=== PATIENT | female | born 1975 | race African-American/Black ===

== ENCOUNTER 2017-02-16 17:09 | Inpatient (IN) | payer OTHER ==
[2017-02-16 18:06] VITALS: BMI 25.8
[2017-02-16] MEDS ORDERED: MAG HYDROX/AL HYDROX/SIMETH 30 ML UNIT-DOSE CUP PO ONE (19:23)
[2017-02-16] MEDS ORDERED: FAMOTIDINE 20 MG/50 ML IVPB 50 ML IVPB ONE ×2 (19:23→21:18)
[2017-02-16] MEDS ORDERED: ACETAMINOPHEN 1000 MG/100 ML VIAL (NON FORMULARY) IVPB ONE (19:23)
[2017-02-16] MEDS ORDERED: FOLIC ACID INJECTION - 1 MG, THIAMINE HCL 100 MG, MULTIVIT INJECTION ADULT 10 ML in SOD... IVPB ONE (19:23)
[2017-02-16] MEDS ORDERED: ONDANSETRON 4 MG/2 ML VIAL IVPB ONE (19:23)
[2017-02-16 19:37] LABS: BASOPHIL 0.9 % (0-2.0); MCH 35.1 pg (25.7-33.7); MCHC 33.9 g/dl (32.0-36.0); MEAN CELL VOLUME 103.7 fl (80-96); MEAN PLT VOLUME 10.7 fl (7.5-11.1); NEUTROPHILS 82.5 % (42.8-82.8); PLATELET COUNT 170 K/MM3 (134-434); RDW 16.3 % (11.6-15.6); WHITE BLOOD COUNT 6.1 K/mm3 (4.0-10.0)
--- NOTE | 2017-02-16 19:40 | PDOC ---
History of Present Illness - General History Source: Patient Exam Limitations: No Limitations <Negrito Awad - Last Filed: 02/16/17 23:00> - General History Source: Patient, Old Records Exam Limitations: No Limitations - History of Present Illness Initial Comments: 02/16/17 21:46 The patient is a 41 year old female, with a significant past medical history of alcohol abuse, who presents to the emergency department with nausea, vomiting and epigastric pain since she woke up this morning. She describes the epigastric pain as burning and states that it intermittently radiates upwards to her throat. She reports multiple episodes of vomiting, most recently currently in the ED. The patient reports that she typically drinks henny. The patient reports that she drank a significant amount of henny last night. The patient denies fever, chills or diarrhea. Allergies: None reported. Past Surgical History: None reported. Social History: Current everyday smoker; See HPI. PCP: Dr. Patel <Loretta Sctot - Last Filed: 02/17/17 00:15> - General Chief Complaint: Nausea/Vomiting Stated Complaint: VOMITING/INTOX Time Seen by Provider: 02/16/17 19:01 Past History - Past Medical History Anemia: No Asthma: No Cancer: No Cardiac Disorders: No CVA: No COPD: No CHF: No Dementia: No Diabetes: No GI Disorders: No Disorders: No HTN: No Hypercholesterolemia: No Kidney Stones: No Liver Disease: No Suicide Attempt (Hx): No Seizures: No Thyroid Disease: No - Surgical History Abdominal Surgery: No Appendectomy: No Cardiac Surgery: No Cholecystectomy: No Lung Surgery: No Neurologic Surgery: No Orthopedic Surgery: No - Reproductive History PID: No - Immunization History Immunization Up to Date: Yes - Psycho/Social/Smoking Cessation Hx Anxiety: No Suicidal Ideation: No Smoking Status: Yes Smoking History: Current every day smoker Have you smoked in the past 12 months: Yes Number of Cigarettes Smoked Daily: 10 Information on smoking cessation initiated: No 'Breaking Loose' booklet given: 05/01/16 Hx Alcohol Use: Yes Drug/Substance Use Hx: No Substance Use Type: Alcohol Hx Substance Use Treatment: Yes (DETOX,IOP) <Negrito Awad - Last Filed: 02/16/17 23:00> <Loretta Scott - Last Filed: 02/17/17 00:15> - Past Medical History Allergies/Adverse Reactions: Allergies Allergy/AdvReac Type Severity Reaction Status Date / Time No Known Allergies Allergy Verified 02/16/17 18:01 Home Medications: Ambulatory Orders NK [No Known Home Medication] 02/16/17 Review of Systems - Review of Systems Able to Perform ROS?: Yes Comments:: 02/16/17 20:13 GENERAL/CONSTITUTIONAL: No fever or chills. No weakness. HEAD, EYES, EARS, NOSE AND THROAT: No change in vision. No ear pain or discharge. No sore throat. CARDIOVASCULAR: No chest pain or shortness of breath. RESPIRATORY: No cough, wheezing, or hemoptysis. GASTROINTESTINAL: +Nausea, vomiting, epigastric pain. No diarrhea or constipation. GENITOURINARY: No dysuria, frequency, or change in urination. MUSCULOSKELETAL: No joint or muscle swelling or pain. No neck or back pain. SKIN: No rash. NEUROLOGIC: No headache, vertigo, loss of consciousness, or change in strength/ sensation. ENDOCRINE: No increased thirst. No abnormal weight change. HEMATOLOGIC/LYMPHATIC: No anemia, easy bleeding, or history of blood clots. ALLERGIC/IMMUNOLOGIC: No hives or skin allergy. <Loretta Scott - Last Filed: 02/17/17 00:15> *Physical Exam - Vital Signs Last Vital Signs Temp Pulse Resp BP Pulse Ox 98.1 F 107 H 24 146/64 100 02/16/17 18:01 02/16/17 18:01 02/16/17 18:01 02/16/17 18:01 02/16/17 18:01 <Negrito Awad - Last Filed: 02/16/17 23:00> - Vital Signs Last Vital Signs Temp Pulse Resp BP Pulse Ox 98.1 F 107 H 24 146/64 100 02/16/17 18:01 02/16/17 18:01 02/16/17 18:01 02/16/17 18:01 02/16/17 18:01 - Physical Exam Comments: 02/16/17 20:12 GENERAL: Awake, alert, and fully oriented, uncomfortable appearing. HEAD: No signs of trauma. EYES: PERRLA, EOMI, sclera anicteric, conjunctiva clear. ENT: Dry mucosa. Auricles normal inspection, hearing grossly normal, nares patent, oropharynx clear without exudates. NECK: Normal ROM, supple, no lymphadenopathy, JVD, or masses. LUNGS: Breath sounds equal, clear to auscultation bilaterally. No wheezes, and no crackles. HEART: Regular rate and rhythm, normal S1 and S2, no murmurs, rubs or gallops. ABDOMEN: Epigastric tenderness to palpation. Soft, normoactive bowel sounds. No guarding, no rebound. No masses. EXTREMITIES: Normal range of motion, no edema. No clubbing or cyanosis. No cords, erythema, or tenderness. NEUROLOGICAL: Cranial nerves II through XII intact. Normal speech, normal gait. SKIN: Warm, dry, normal turgor, no rashes or lesions noted. <Loretta Scott - Last Filed: 02/17/17 00:15> ED Treatment Course - LABORATORY CBC & Chemistry Diagram: 02/16/17 19:00 02/16/17 19:25 - RADIOLOGY Radiology Studies Ordered: Category Date Time Status CHEST X-RAY PORTABLE* [RAD] Stat Radiology 02/16/17 19:25 Ordered ABDOMEN US -LIMITED [US] Stat Ultrasound 02/16/17 19:25 Ordered <Negrito Awad - Last Filed: 02/16/17 23:00> - LABORATORY CBC & Chemistry Diagram: 02/16/17 19:00 02/16/17 19:25 - ADDITIONAL ORDERS Additional order review: 02/16/17 19:00 RBC 4.49 MCV 103.7 H MCHC 33.9 RDW 16.3 H D MPV 10.7 D Neutrophils % 82.5 Lymphocytes % 8.1 D Monocytes % 8.5 Eosinophils % 0.0 Basophils % 0.9 <Loretta Scott - Last Filed: 02/17/17 00:15> Medical Decision Making - Medical Decision Making 02/16/17 19:38 A portion of this note was documented by scribe services under my direction. I have reviewed the details of the note, within reason, and agree with the documentation with the following case summary and management plan written by me. Patient treated in the ED. Nursing notes are reviewed and incorporated into the medical decision-making. Vital signs reviewed. Peripheral IV access obtained by the nurse, laboratory studies are drawn and sent, reviewed and interpreted by myself. Vital Signs Temp Pulse Resp BP Pulse Ox 98.1 F 107 H 24 146/64 100 02/16/17 18:01 02/16/17 18:01 02/16/17 18:01 02/16/17 18:01 02/16/17 18:01 41-year-old female with past medical history of alcohol abuse presents immersed department with epigastric pain, nausea, vomiting. Patient reports that she intermittently drinks henny. She reported drinking a lot of henny yesterday night. Woke up today with severe epigastric pain, nausea, vomiting. Denies fevers or chills. I suspect patient likely has alcoholic gastritis. We'll however need to rule out pancreatitis. We'll obtain labs, right upper quadrant ultrasound to rule out biliary pathology. Give IV fluids, treat symptoms and reassess. 02/16/17 23:01 Ultrasound reveals fatty liver versus a parasite disease. Small gallbladder sludge without evidence of stones or sonographic evidence of acute cholecystitis. Chest xray reviewed. No acute findings. CBC, BMP 02/16/17 19:00 CMP Sodium 139 mmol/L (136-145) 02/16/17 19:25 Potassium 3.3 mmol/L (3.5-5.1) L 02/16/17 19:25 Chloride 91 mmol/L (98-107) L 02/16/17 19:25 Carbon Dioxide 23 mmol/L (21-32) 02/16/17 19:25 Anion Gap 25 (8-16) H 02/16/17 19:25 BUN 7 mg/dL (7-18) D 02/16/17 19:25 Creatinine 1.0 mg/dL (0.55-1.02) 02/16/17 19:25 Creat Clearance w eGFR > 60 (>60) 02/16/17 19:25 Random Glucose 71 mg/dL (74-106) L D 02/16/17 19:25 Calcium 9.4 mg/dL (8.5-10.1) 02/16/17 19:25 Total Bilirubin 1.4 mg/dL (0.2-1.0) H D 02/16/17 19:25 AST 74 U/L (15-37) H D 02/16/17 19:25 ALT 50 U/L (12-78) D 02/16/17 19:25 Alkaline Phosphatase 103 U/L (45-117) 02/16/17 19:25 Creatine Kinase 141 IU/L (26-192) 02/16/17 19:25 Troponin I < 0.02 ng/ml (0.00-0.05) 02/16/17 19:25 Total Protein 8.6 g/dl (6.4-8.2) H 02/16/17 19:25 Albumin 4.5 g/dl (3.4-5.0) 02/16/17 19:25 Lipase 75 U/L (73-393) 02/16/17 19:25 Serum , Qual Negative 02/16/17 19:25 UA pending. The patient demonstrates findings of dehydration with elevated hemoglobin and hemoconcentration. Also notable is patient's anion gap of 25. Acetone was test was negative. Lactic acidosis and a tox screen is pending. Though the patient reports feeling somewhat better, patient has having an inability to tolerate by mouth. She still remains nauseous. Given the elevated anion gap, decision was made to admit the patient to the hospital. Case was discussed with Dr. Motley who accepts the patient to medical surgical observation for further evaluation. Case discussed in detail with admitting physician including history, physical exam and ancillary studies. Admitting physician has assumed care for the patient, will follow all pending diagnostics and will complete the evaluation and treatment. <Negrito Awad - Last Filed: 02/16/17 23:00> - Medical Decision Making 02/16/17 21:37 EXAM: US/ABDOMEN US - LIMITED Reviewed By: Dr. Eva Dunn IMPRESSION: Fatty liver versus hepatocellular disease. Please correlate with liver enzymes. Small gallbladder sludge without evidence of stones or sonographic evidence of acute cholecystitis. EXAM: RAD/CHEST X-RAY PORTABLE Reviewed By: Dr. Eva Dunn IMPRESSION: No acute cardiopulmonary disease is present. Hospitalist service was made aware that this patient's lactic acid is 5.245 at 23:43. <Loretta Scott - Last Filed: 02/17/17 00:15> *DC/Admit/Observation/Transfer - Discharge Dispostion Admit: Yes <Negrito Awad - Last Filed: 02/16/17 23:00> - Attestations Scribe Attestion: 02/16/17 19:59 Documentation prepared by Loretta La Veta, acting as medical translator for Negrito Awad MD. <Loretta Scott - Last Filed: 02/17/17 00:15> Diagnosis at time of Disposition: Alcoholic gastritis Qualifiers: Chronicity: unspecified Gastritis bleeding: without bleeding Qualified Code(s) : K29.20 - Alcoholic gastritis without bleeding - Referrals Referrals: Yeimi Patel MD [Primary Care Provider] -
[2017-02-16 20:15] LABS: ALBUMIN 4.5 g/dl (3.4-5.0); ANION GAP 25 (8-16); BILIRUBIN,TOTAL 1.4 mg/dL (0.2-1.0); CALCIUM 9.4 mg/dL (8.5-10.1); CO2 23 mmol/L (21-32); GLUCOSE,RANDOM 71 mg/dL (74-106); SGOT/AST 74 U/L (15-37); SGPT/ALT 50 U/L (12-78); TOT PROT 8.6 g/dl (6.4-8.2)
[2017-02-16 20:17] LABS: ALK PHOS 103 U/L (45-117); TROPONIN I < 0.02 ng/ml (0.00-0.05)
[2017-02-16] MEDS ORDERED: SODIUM CHLORIDE 1,000 ML IV STA (21:11)
[2017-02-16] MEDS ORDERED: MAG HYDROX/AL HYDROX/SIMETH 30 ML UNIT-DOSE CUP ONE (21:16)
[2017-02-16] MEDS ORDERED: ONDANSETRON 4 MG/2 ML VIAL ONE (21:17)
[2017-02-16] MEDS ORDERED: POTASSIUM CHLORIDE TABS 20 MEQ TABLET.ER (FP) PO ONE ×2 (21:31→23:03)
[2017-02-16] MEDS ORDERED: morphine CARPU-JECT 4 MG/1 ML DISP.SYRIN IVPUSH ONE (21:48)
[2017-02-16] MEDS ORDERED: ACETAMINOPHEN INJECTION 100 ML IVPB ONE (21:54)
[2017-02-16] MEDS ORDERED: morphine CARPU-JECT 4 MG/1 ML DISP.SYRIN ONE (23:03)
--- NOTE | 2017-02-17 00:03 | PN ---
<Keshia Motley - Last Filed: 02/16/17 23:11> Teaching Attending Note Name of Resident: Morris Conner <Heydi Carlisle - Last Filed: 02/17/17 03:12> Teaching Attending Note ATTENDING PHYSICIAN STATEMENT I saw and evaluated the patient. I reviewed the resident's note and discussed the case with the resident. I agree with the resident's findings and plan as documented. SUBJECTIVE: 41 year old female presents to the ED with complaint of nausea, vomiting and epigastric pain since this morning. She describes the epigastric pain as burning and states that it intermittently radiates upwards to her throat. She reports multiple episodes, nonbloody, since , 02/15. She notes that she drank extensive amounts of henny for 24 hours since Sunday until . She also reports tremors. Patient has extensive history of alcohol abuse, drinking 1 pint of henny a day, was in [facility] detox in 2016. PMH: none PSH: none FH: Mother (HTN,ALCOHOLISM), CA: Grandparent (BRAIN), Father (ALCOHOLISM,LUNG) SH: alcohol abuse(drinks a pint of henny a day, detox 2016), smoker, no illicit drug use OBJECTIVE: VS: Last Vital Signs Temp Pulse Resp BP Pulse Ox 98.1 F 107 H 24 146/64 100 02/16/17 18:01 02/16/17 18:01 02/16/17 18:01 02/16/17 18:01 02/16/17 18:01 GENERAL: Awake, alert, and fully oriented, +in mild acute distress HEENT: Atraumatic. PERRLA, EOMI. Moist mucosa. No JVD LUNGS: No distress, speaks full sentences, clear to auscultation bilaterally HEART: Regular rate and rhythm, normal S1 and S2, no murmurs, rubs or gallops, peripheral pulses normal and equal bilaterally. ABDOMEN: +epigastric tenderness, +RUQ tenderness. Soft, normoactive bowel sounds. No guarding, no rebound. No masses Musculoskeletal: +left CVA tenderness EXTREMITIES: Normal inspection, Normal range of motion, no edema. No clubbing or cyanosis. NEUROLOGICAL: Cranial nerves II through XII grossly intact. Normal speech, normal gait, no focal sensorimotor deficits SKIN: Warm, Dry, normal turgor, no rashes or lesions noted. LABS: CBCD WBC 6.1 K/mm3 (4.0-10.0) 02/16/17 19:00 RBC 4.49 M/mm3 (3.60-5.2) 02/16/17 19:00 Hgb 15.8 GM/dL (10.7-15.3) H D 02/16/17 19:00 Hct 46.6 % (32.4-45.2) H 02/16/17 19:00 MCV 103.7 fl (80-96) H 02/16/17 19:00 MCHC 33.9 g/dl (32.0-36.0) 02/16/17 19:00 RDW 16.3 % (11.6-15.6) H D 02/16/17 19:00 Plt Count 170 K/MM3 (134-434) 02/16/17 19:00 MPV 10.7 fl (7.5-11.1) D 02/16/17 19:00 CMP Sodium 141 mmol/L (136-145) 02/16/17 23:38 Potassium 3.1 mmol/L (3.5-5.1) L 02/16/17 23:38 Chloride 95 mmol/L (98-107) L 02/16/17 23:38 Carbon Dioxide 30 mmol/L (21-32) D 02/16/17 23:38 Anion Gap 16 (8-16) 02/16/17 23:38 BUN 8 mg/dL (7-18) 02/16/17 23:38 Creatinine 1.0 mg/dL (0.55-1.02) 02/16/17 23:38 Creat Clearance w eGFR > 60 (>60) 02/16/17 23:38 Calcium 8.5 mg/dL (8.5-10.1) 02/16/17 23:38 Total Bilirubin 1.9 mg/dL (0.2-1.0) H D 02/16/17 23:38 AST 215 U/L (15-37) H D 02/16/17 23:38 ALT 79 U/L (12-78) H D 02/16/17 23:38 Alkaline Phosphatase 85 U/L (45-117) 02/16/17 23:38 Total Protein 6.9 g/dl (6.4-8.2) 02/16/17 23:38 Albumin 3.6 g/dl (3.4-5.0) 02/16/17 23:38 IMAGING: EXAM: US/ABDOMEN US - LIMITED Reviewed By: Dr. Eva Dunn IMPRESSION: Fatty liver versus hepatocellular disease. Please correlate with liver enzymes. Small gallbladder sludge without evidence of stones or sonographic evidence of acute cholecystitis. ASSESSMENT AND PLAN: 41 year old female who is being admitted for severe alcohol intoxication/ poisoning r/o gastritis. Severe alcohol intoxication/poisoning -Urine tox -UA -Librium -Zofran -Repeat BMP and Lactic in AM -Banana bag -Multi vitamin -Folic acid and thiamine -CXR -Abdominal and renal US -Psych consult -Consult for detox Documentation prepared by SOUTH Paredes, acting as biomedical equipment tech for Keshia Motley MD, MD.
[2017-02-17 00:16] LABS: ALBUMIN 3.6 g/dl (3.4-5.0); ALK PHOS 85 U/L (45-117); ANION GAP 16 (8-16); BILIRUBIN,TOTAL 1.9 mg/dL (0.2-1.0); CALCIUM 8.5 mg/dL (8.5-10.1); CO2 30 mmol/L (21-32); GLUCOSE,RANDOM 118 mg/dL (74-106); MAGNESIUM 1.1 mg/dL (1.8-2.4); SGOT/AST 215 U/L (15-37); SGPT/ALT 79 U/L (12-78); TOT PROT 6.9 g/dl (6.4-8.2)
--- NOTE | 2017-02-17 00:45 | HP ---
CHIEF COMPLAINT: vomiting PCP: Dr. Cline [facility] HISTORY OF PRESENT ILLNESS: 41 yr old woman with alcohol abuse, current smoker presents with vomiting since Sunday morning starting around 6AM. multiple episodes of vomit consisted of yellow/green water, denies blood, continued to vomit in the ED. She had started drinking henny with cola starting Sunday afternoon around 5pm and continued to drink all day without food or water until into night. Also c/o abdominal pain and sore throat that started after vomiting. Denied any other alcohol in combination, denied drug use. denies back and left sided trauma, LOC or head trauma. Was in her usual state of health on Sunday morning, no sick contacts, no travel. Has been binge drinking every several months to the point of requiring hospitalization for the past two years, since the of her mother. Cries when she remembers her mother. No ICU stays, no intubations, denies seizures. When she stops her binge episode she gets a headache, vomits continuously ( never blood), comes to the hospital for a few days then goes home. Had a full physical on Dec [address] Harper, was told she was vit D deficient. ER course was notable for: (1) banana bag (2) cxy (3) abdominal ultrasound Recent Travel: none PAST MEDICAL HISTORY: Vitamin D deficiency Social History: lives with younger sister (29 yr old), and teenage son, has two sons in senior care and 1 son who from accidental gun shot many years ago. 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 Smoking: current smoker, 1/2 pk per day since she was 19 Alcohol: last drink night, drinks henny - "alot" Drugs: denies Family History: Father from lung cancer, dxd age 60's Mother from renal failure, DM Paternal grandmother "brain cancer" Allergies No Known Allergies Allergy (Verified 02/16/17 18:01) HOME MEDICATIONS: Home Medications Medication Instructions Recorded NK [No Known Home Medication] 02/16/17 REVIEW OF SYSTEMS CONSTITUTIONAL: Present: chills, Absent: fever, diaphoresis, generalized weakness, malaise, loss of appetite, weight change HEENT: Absent: rhinorrhea, nasal congestion, throat pain, throat swelling, difficulty swallowing, mouth swelling, ear pain, eye pain, visual changes CARDIOVASCULAR: Absent: chest pain, syncope, palpitations, irregular heart rate, lightheadedness , peripheral edema RESPIRATORY: Absent: cough, shortness of breath, dyspnea with exertion, orthopnea, wheezing, stridor, hemoptysis GASTROINTESTINAL: Present: abdominal pain, vomiting, Absent:abdominal distension, nausea,diarrhea, constipation, melena, hematochezia GENITOURINARY: Absent: dysuria, frequency, urgency, hesitancy, hematuria, flank pain, genital pain MUSCULOSKELETAL: Absent: myalgia, arthralgia, joint swelling, back pain, neck pain SKIN: Absent: rash, itching, pallor HEMATOLOGIC/IMMUNOLOGIC: Absent: easy bleeding, easy bruising, lymphadenopathy, frequent infections ENDOCRINE: Absent: unexplained weight gain, unexplained weight loss, heat intolerance, cold intolerance NEUROLOGIC: Absent: headache, focal weakness or paresthesias, dizziness, unsteady gait, seizure, mental status changes, bladder or bowel incontinence PSYCHIATRIC: Absent: anxiety, depression, suicidal or homicidal ideation, hallucinations. PHYSICAL EXAMINATION Vital Signs - 24 hr 02/16/17 18:01 Temperature 98.1 F Pulse Rate 107 H Respiratory 24 Rate Blood Pressure 146/64 O2 Sat by Pulse 100 Oximetry (%) GENERAL: Awake, alert, and fully oriented, in no mild distress - vomiting in bed with occasional chills. HEAD: Normal with no signs of trauma. EYES: Pupils equal, round and reactive to light, extraocular movements intact, sclera anicteric, conjunctiva clear. No lid lag. EARS, NOSE, THROAT: Ears normal, nares patent, oropharynx clear without exudates. Moist mucous membranes. poor dentition, missing upper dentition. NECK: Normal range of motion, supple without lymphadenopathy, JVD, or masses. LUNGS: RLL mild crackles, LLL coarse breath sounds. No wheezes. No accessory muscle use. HEART: tachycardiac, regular rhythm, normal S1 and S2 without murmur, rub or gallop. ABDOMEN: Soft, tender in epigastrium and RUQ, not distended, normoactive bowel sounds, no guarding, no rebound, no masses. No hepatomegaly or splenomegaly. MUSCULOSKELETAL: Normal range of motion at all joints. No bony deformities or tenderness. Left CVA tenderness - overlying skin intact without swelling or bruising, pain is nonradiating, nonpositional. right cva nontender. UPPER EXTREMITIES: 2+ pulses, warm, well-perfused. No cyanosis. No clubbing. No peripheral edema. LOWER EXTREMITIES: 2+ pulses, warm, well-perfused. No calf tenderness. No peripheral edema. NEUROLOGICAL: Cranial nerves II-XII intact. Normal speech. PSYCHIATRIC: Cooperative. Good eye contact. Appropriate mood and affect. denies hallucinations SKIN: Warm, dry, normal turgor, no rashes or lesions noted, normal capillary refill. Laboratory Results - last 24 hr 02/16/17 02/16/17 02/16/17 19:00 19:20 19:25 WBC 6.1 RBC 4.49 Hgb 15.8 H D Hct 46.6 H MCV 103.7 H MCHC 33.9 RDW 16.3 H D Plt Count 170 MPV 10.7 D Neutrophils % 82.5 Lymphocytes % 8.1 D Monocytes % 8.5 Eosinophils % 0.0 Basophils % 0.9 Sodium Potassium Chloride Carbon Dioxide Anion Gap BUN Creatinine Creat Clearance w eGFR Random Glucose Lactic Acid Calcium Magnesium Total Bilirubin AST ALT Alkaline Phosphatase Creatine Kinase Troponin I Total Protein Albumin Lipase Serum , Qual Negative Acetone, Qual Negative L 02/16/17 02/16/17 02/16/17 19:25 22:24 22:24 WBC RBC Hgb Hct MCV MCHC RDW Plt Count MPV Neutrophils % Lymphocytes % Monocytes % Eosinophils % Basophils % Sodium 139 Cancelled Potassium 3.3 L Cancelled Chloride 91 L Cancelled Carbon Dioxide 23 Cancelled Anion Gap 25 H Cancelled BUN 7 D Cancelled Creatinine 1.0 Cancelled Creat Clearance w eGFR > 60 Cancelled Random Glucose 71 L D Cancelled Lactic Acid 5.245 H* Calcium 9.4 Cancelled Magnesium Total Bilirubin 1.4 H D Cancelled AST 74 H D Cancelled ALT 50 D Cancelled Alkaline Phosphatase 103 Cancelled Creatine Kinase 141 Troponin I < 0.02 Total Protein 8.6 H Cancelled Albumin 4.5 Cancelled Lipase 75 Serum , Qual Acetone, Qual 02/16/17 23:38 WBC RBC Hgb Hct MCV MCHC RDW Plt Count MPV Neutrophils % Lymphocytes % Monocytes % Eosinophils % Basophils % Sodium 141 Potassium 3.1 L Chloride 95 L Carbon Dioxide 30 D Anion Gap 16 BUN 8 Creatinine 1.0 Creat Clearance w eGFR > 60 Random Glucose 118 H D Lactic Acid Calcium 8.5 Magnesium 1.1 L Total Bilirubin 1.9 H D AST 215 H D ALT 79 H D Alkaline Phosphatase 85 Creatine Kinase Troponin I Total Protein 6.9 Albumin 3.6 Lipase Serum , Qual Acetone, Qual Active Medications Chlordiazepoxide HCl (Librium -) 25 mg PO Q4H PRN PRN Reason: WITHDRAWAL(CONT SUBST) Stop: 02/20/17 01:56 Chlordiazepoxide HCl (Librium -) 50 mg PO [id number] [facility] Stop: 02/17/17 23:01 Chlordiazepoxide HCl (Librium -) 25 mg PO [id number] [facility] Stop: 02/18/17 23:01 Chlordiazepoxide HCl (Librium -) 15 mg PO [id number] [facility] Stop: 02/19/17 23:01 Enoxaparin Sodium (Lovenox -) 40 mg SQ DAILY [facility] Folic Acid (Folic Acid -) 1 mg PO DAILY [facility] Sodium Chloride (Normal Saline -) 1,000 mls @ 125 mls/hr IV ASDIR [facility] Last Admin: 02/17/17 02:24 Dose: 125 mls/hr Potassium Chloride (Potassium Chloride 10 Meq Premix Ivpb -) 100 mls @ 100 mls/ hr IVPB Q60M [facility] Stop: 02/17/17 04:59 Metoclopramide HCl (Reglan Injection -) 10 mg IVPB Q6H PRN PRN Reason: NAUSEA AND/OR VOMITING Thiamine HCl (Vitamin B1 -) 100 mg PO DAILY [facility] ASSESSMENT/PLAN: 41 yr old woman with alcohol abuse presents with vomiting post-alcohol binge episode found to have lactic acidosis. - CXY with right tiny subpleral bulla R>L, will require outpatient follow-up - Tranaminitis with AST>ALT, likely from alcohol use #Alcohol gastritis - vomiting likely due to alcohol use - NPO except for meds, evaluate in the AM to advance diet - banana bag, thiamine, folic acid - NS IVF @125 - reglan #Lactic acidosis - pt is afebrile, no URI/UTI symptoms, cxy without infiltrate, consolidations, no leucocytosis. Lactic acidosis likely from alcohol use - bld cx and ua pending to r/o infection - NS - repeat in the AM #Left CVA tenderness - unclear etiology, possibly patient may have fallen? - ultrasound of left kidney to r/o renal cause of pain #ETOH withdrawal - librium taper - Dr. Tanner consulted - pt is interested in attending rehab #Hypokalemia/HypoMg - kdur x2 - Mg Hydroxide - repeat in the AM #Grief vs depression regarding mother's , alcohol abuse counseling - psych consult #Smoking cessation - declined nicotine patch - offer cessation information at discharge #Diet - NPO except for meds #DVT - lovenox Visit type - Emergency Visit Emergency Visit: Yes ED Registration Date: 02/16/17 Care time: The patient presented to the Emergency Department on the above date and was hospitalized for further evaluation of their emergent condition. - New Patient This patient is new to me today: Yes Date on this admission: 02/17/17 - Critical Care Critical Care patient: No
[2017-02-17] MEDS ORDERED: METOCLOPRAMIDE HCL INJECTION 10 MG/2 ML VIAL IVPB PRN (01:31)
[2017-02-17] MEDS ORDERED: SODIUM CHLORIDE 1,000 ML IV SCH (01:45)
[2017-02-17] MEDS ORDERED: chlordiazePOXIDE HCL 25 MG CAPSULE PO PRN (01:57)
[2017-02-17] MEDS: KCL 10 MEQ IVPB 100 ML IVPB SCH ×2 (03:20→04:29)
[2017-02-17 03:43] LABS: URINE APPEARANCE CLOUDY; URINE BILIRUBIN NEGATIVE (NEGATIVE); URINE BLOOD NEGATIVE (NEGATIVE); URINE COLOR AMBER; URINE GLUCOSE (UA) NEGATIVE (NEGATIVE); URINE KETONE 1+ (NEGATIVE); URINE LEUK ESTERASE NEGATIVE (NEGATIVE); URINE NITRITE NEGATIVE (NEGATIVE); URINE UROBILINOGEN NEGATIVE E.U./dl (0.2-1.0)
[2017-02-17 03:45] LABS: URINE PROTEIN 2+ (NEGATIVE)
[2017-02-17 03:55] LABS: URINE MARIJUANA THC NEGATIVE ng/ml (CUTOFF=50)
[2017-02-17 03:58] LABS: URINE BACTERIA FEW /hpf (NONE SEEN); URINE MUCUS MANY; URINE RBC 12 /hpf (0-3); URINE WBC 14 /hpf (3-5)
[2017-02-17] MEDS ORDERED: chlordiazePOXIDE HCL 25 MG CAPSULE ONE (05:42)
[2017-02-17] MEDS: chlordiazePOXIDE HCL 25 MG CAPSULE PO SCH ×2 (05:47→12:21)
[2017-02-17 07:18] LABS: MCH 35.4 pg (25.7-33.7); MCHC 33.6 g/dl (32.0-36.0); MEAN CELL VOLUME 105.3 fl (80-96); MEAN PLT VOLUME 9.5 fl (7.5-11.1); PLATELET COUNT 113 K/MM3 (134-434); RDW 15.8 % (11.6-15.6); WHITE BLOOD COUNT 7.5 K/mm3 (4.0-10.0)
[2017-02-17 07:40] LABS: CALCIUM 7.8 mg/dL (8.5-10.1); COCKROFT - GAULT 119.9435; CREATININE 0.7 mg/dL (0.55-1.02)
[2017-02-17 08:40] LABS: HYPOCHROMIA 2+; TARGET CELLS 2+
[2017-02-17] MEDS ORDERED: ENOXAPARIN NA (PORCINE) 40 MG/0.4 ML DISP.SYRIN SQ SCH (10:00)
[2017-02-17] MEDS ORDERED: THIAMINE HCL 100 MG TABLET (FP) PO SCH (10:00)
[2017-02-17] MEDS ORDERED: FOLIC ACID 1 MG TABLET (FP) PO SCH (10:00)
[2017-02-17] MEDS ORDERED: POTASSIUM CHLORIDE ORAL LIQUID 20 MEQ/15 ML PO ONE ×2 (11:45→12:30)
[2017-02-17 12:59] LABS: HIV 1 & 2 AB NEGATIVE; HIV 1 AGp24 NEGATIVE
[2017-02-17 16:51] LABS: ALBUMIN 3.4 g/dl (3.4-5.0); BILIRUBIN,DIRECT 0.4 mg/dL (0.0-0.2); TOT PROT 6.2 g/dl (6.4-8.2)
--- NOTE | 2017-02-17 17:28 | DS ---
Physical Exam: SUBJECTIVE: Patient seen and examined. initially examined at 1030 today. states she feels better and is requesting to eat. has a FLORES but contributes to not eating since yesterday. states she binges on drinking once a month and goes a day or 2 and only consumes ETOH. sometimes triggerd by emoitional event and this time was because her son was locked up in retirement. denies CP, SOB,fever, chills, N/V/C/D, homicidal/suicidal idealizations. no hx of DT or withdrawal seizures. never been detoxed from ETOH. never did inpatient rehab and is not interested in at this time OBJECTIVE: Vital Signs Period Temp Pulse Resp BP Sys/Kramer Pulse Ox Last 24 Hr 98.2 F-98.7 F 75-89 18-20 122-141/66-93 98-100 PHYSICAL EXAM GENERAL: The patient is awake, alert, and fully oriented, in no acute distress. HEAD: Normal with no signs of trauma. EYES: PERRL, extraocular movements intact, sclera anicteric, conjunctiva clear. ENT: Ears normal, nares patent, oropharynx clear without exudates, moist mucous membranes. NECK: Trachea midline, full range of motion, supple. LUNGS: Breath sounds equal, clear to auscultation bilaterally, no wheezes, no crackles, no accessory muscle use. HEART: Regular rate and rhythm, S1, S2 without murmur, rub or gallop. ABDOMEN: Soft, nontender, nondistended, normoactive bowel sounds, no guarding, no rebound, no hepatosplenomegaly, no masses. EXTREMITIES: 2+ pulses, warm, well-perfused, no edema. no tremors NEUROLOGICAL: Cranial nerves II through XII grossly intact. Normal speech, gait not observed. PSYCH: Normal mood, normal affect. SKIN: Warm, dry, normal turgor, no rashes or lesions noted. LABS Laboratory Results - last 24 hr 02/17/17 02/17/17 02/17/17 03:19 03:25 06:05 WBC 7.5 RBC 3.58 L D Hgb 12.7 D Hct 37.7 D MCV 105.3 H MCHC 33.6 RDW 15.8 H Plt Count 113 L D MPV 9.5 D Hypochromic-Microcytic 2+ Macrocytosis 1+ Target Cells 2+ Morphology Comment Slide scanned Sodium Potassium Chloride Carbon Dioxide Anion Gap BUN Creatinine Random Glucose Lactic Acid Calcium Total Bilirubin Direct Bilirubin AST ALT Alkaline Phosphatase Total Protein Albumin Urine Color Colleen Urine Appearance Cloudy Urine pH 6.0 Ur Specific [place] 1.026 Urine Protein 2+ H Urine Glucose (UA) Negative Urine Ketones 1+ H Urine Blood Negative Urine Nitrite Negative Urine Bilirubin Negative Urine Urobilinogen Negative Ur Leukocyte Esterase Negative Urine RBC 12 Urine WBC 14 Ur Epithelial Cells Few Urine Bacteria Few Urine Mucus Many Opiates Screen Positive Methadone Screen Negative Barbiturate Screen Negative Phencyclidine Screen Negative Ur Amphetamines Screen Negative MDMA (Ecstasy) Screen Negative Benzodiazepines Screen Negative Cocaine Screen Negative U Marijuana (THC) Screen Negative HIV 1&2 Antibody Screen HIV P24 Antigen 02/17/17 02/17/17 02/17/17 06:05 06:05 10:50 WBC RBC Hgb Hct MCV MCHC RDW Plt Count MPV Hypochromic-Microcytic Macrocytosis Target Cells Morphology Comment Sodium 141 Potassium 3.7 Chloride 99 Carbon Dioxide 30 Anion Gap 12 BUN 6 L D Creatinine 0.7 D Random Glucose 82 D Lactic Acid 1.294 Calcium 7.8 L Total Bilirubin 1.0 D Direct Bilirubin 0.4 H AST 135 H D ALT 63 D Alkaline Phosphatase 72 Total Protein 6.2 L Albumin 3.4 Urine Color Urine Appearance Urine pH Ur Specific [place] Urine Protein Urine Glucose (UA) Urine Ketones Urine Blood Urine Nitrite Urine Bilirubin Urine Urobilinogen Ur Leukocyte Esterase Urine RBC Urine WBC Ur Epithelial Cells Urine Bacteria Urine Mucus Opiates Screen Methadone Screen Barbiturate Screen Phencyclidine Screen Ur Amphetamines Screen MDMA (Ecstasy) Screen Benzodiazepines Screen Cocaine Screen U Marijuana (THC) Screen HIV 1&2 Antibody Screen Negative HIV P24 Antigen Negative HOSPITAL COURSE: Date of Admission:02/17/17 Date of Discharge: 02/17/17 Admitting diagnosis: ETOH induced gastritis, Transaminitis Pre hospital course 41 yr old woman with alcohol abuse, current smoker presents with vomiting since Sunday morning starting around 6AM. multiple episodes of vomit consisted of yellow/green water, denies blood, continued to vomit in the ED. She had started drinking henny with cola starting Sunday afternoon around 5pm and continued to drink all day without food or water until into night. Also c/o abdominal pain and sore throat that started after vomiting. Denied any other alcohol in combination, denied drug use. denies back and left sided trauma, LOC or head trauma. Was in her usual state of health on Sunday morning, no sick contacts, no travel. Has been binge drinking every several months to the point of requiring hospitalization for the past two years, since the of her mother. Cries when she remembers her mother. No ICU stays, no intubations, denies seizures. When she stops her binge episode she gets a headache, vomits continuously ( never blood), comes to the hospital for a few days then goes home. Had a full physical on Dec [address] Harper, was told she was vit D deficient. Subsequent hospital course Admitted to medicine. given banana bag and IVF, zofran for nausea. clinically improved. diet advanced and tolerated. was started on librium protocol but was cancelled as pt had CIWA 1. does not drink ETOH daily no hx of DT's. low suspicion that pt will develop DT at this time and does not require detox as does not display symptoms of withdrawal. transaminitis improved. spoke with psychatrist Zoie over the phone as he was consulted for depression. d/w pt situation and plan. he agrees pt does not appear to be a threat to herself or others, not displaying episodes of niru or manic depression and will follow up as outpatient. re-evaluated at 1730- tolerating lunch well, no N/V. FLORES has resolved. no tremors or agitation. pt d/c home. educated on importance of ETOH and tobacco cessation. will need repeat CXR to monitor incidental finding of pulmonary bullae. Minutes to complete discharge: 40 Discharge Summary Reason For Visit: ALCOHOLIC GASTRITIS Current Active Problems Alcoholic gastritis (Acute) Lactic acidosis (Acute) Transaminitis (Acute) - Instructions Diet, Activity, Other Instructions: Avoid drinking alcohol as this is detrimental to your health as discussed in detail. Seek Alcoholics Anonymous Take a multivitamin daily. Follow up with your primary care doctor this week. You will need a repeat Chest X-ray to follow up a lung bullae that was seen here. You will also need to have your liver functions tested again to ensure they have normalized. Abstain from smoking cigarettes as this is detrimental to your health. FOllow up with psychiatrist, information on one has been provided return to the ER if you develop chest pain Referrals: Tracey Melo MD [Staff Physician] - Yeimi Patel MD [Primary Care Provider] - - Home Medications Comprehensive Discharge Medication List: Ambulatory Orders NK [No Known Home Medication] 02/16/17 This patient is new to me today: Yes Date on this admission: 02/17/17 Emergency Visit: Yes ED Registration Date: 02/17/17 Care time: The patient presented to the Emergency Department on the above date and was hospitalized for further evaluation of their emergent condition. Critical Care patient: No - Discharge Referral Referred to [facility] Med [facility] No
[2017-02-17 18:35] VITALS: BP 130/91; PULSE 84; TEMP 98.1
[2017-02-18] MEDS ORDERED: chlordiazePOXIDE HCL 25 MG CAPSULE PO SCH (05:00)
[2017-02-18 08:34] LABS: MAGNESIUM 1.1 mg/dL (1.8-2.4)
[2017-02-19] MEDS ORDERED: chlordiazePOXIDE 5 MG CAPSULE PO SCH (05:00)
--- NOTE | 2017-02-21 14:11 | EKG ---
Test Reason : Blood Pressure : / mmHG Vent. Rate : 110 BPM Atrial Rate : 110 BPM P-R Int : 122 ms QRS Dur : 068 ms QT Int : 404 ms P-R-T Axes : 075 064 070 degrees QTc Int : 546 ms SINUS TACHYCARDIA NONSPECIFIC ST ABNORMALITY PROLONGED QT ABNORMAL ECG WHEN COMPARED WITH ECG OF 04-AUG-2016 13:03, QT HAS LENGTHENED Confirmed by CALISTA CAMACHO MD ([id number]) on 02/21/2017 2:11:35 PM Referred By: Confirmed By:CALISTA CAMACHO MD
== END 2017-02-17 18:45 | disposition home or self-care (01) | DRG 241 ==
LOC: JER 17:09 → JERBED 02-17 00:42 → OBSVTOIN 02-17 01:31 → J7W 02-17 08:57
PROVIDERS: ADMIT Internal Medicine; ATTEND Internal Medicine
DX: K29.20 Alcoholic gastritis without bleeding (principal); F17.210 Nicotine dependence, cigarettes, uncomplicated; K70.0 Alcoholic fatty liver; E55.9 Vitamin D deficiency, unspecified; E87.2 Acidosis; E87.6 Hypokalemia; E83.42 Hypomagnesemia; F43.21 Adjustment disorder with depressed mood; R74.0 Nonspecific elevation of levels of transaminase and lactic acid dehydrogenase [LDH]; F10.10 Alcohol abuse, uncomplicated; J43.8 Other emphysema; Z71.89 Other specified counseling
CPT/HCPCS: 36415; 71010-TC; 76705-TC; 80048; 80053; 80076; 80307; 81003; 81015; 82009; 82550; 83605; 83690; 83735; 84484; 84703; 85025; 85027; 87040; 87389; 93005; 93010; 99285-25; G0378

== ENCOUNTER 2017-07-11 15:01 | Emergency (ER) | payer OTHER ==
[2017-07-11] MEDS ORDERED: ONDANSETRON 4 MG/2 ML VIAL IVPB ONE (15:24)
[2017-07-11] MEDS ORDERED: SODIUM CHLORIDE 1,000 ML IV ONE (15:24)
[2017-07-11 15:26] VITALS: BP 133/63; PULSE 115; TEMP 97.9; BMI 25.8
[2017-07-11] MEDS ORDERED: ONDANSETRON 4 MG/2 ML VIAL ONE (15:29)
[2017-07-11] MEDS ORDERED: FAMOTIDINE 20 MG/50 ML IVPB 50 ML IVPB ONE (15:30)
--- NOTE | 2017-07-11 15:48 | PDOC ---
History of Present Illness - History of Present Illness Initial Comments: 07/11/17 15:51 Patient is a 41 year old female with a history of alcohol abuse who presents with nausea, vomiting and abdominal pain. The patient reports consuming 1 bottle of E&J yesterday evening. She reports occasionally binging on alcohol once every few months and with her most recent ED visit for the same complaints on . She reports nausea and intractable non-bloody, non-bilious vomiting beginning earlier this morning without relief prompting her visit to the ED today. She also reports epigastric abdominal pain which is usually associated with her intractable vomiting after her alcohol binges. She denies fevers, chills, SOB, chest pain, or changes with bowel movements or urination. <Sushil Archibald - Last Filed: 07/11/17 19:26> <Marc Cornell - Last Filed: 07/11/17 23:48> - General Chief Complaint: Alcohol intoxication Stated Complaint: Nausea/Vomiting Time Seen by Provider: 07/11/17 15:43 Past History - Past Medical History Anemia: No Asthma: No Cancer: No Cardiac Disorders: No CVA: No COPD: No CHF: No Dementia: No Diabetes: No GI Disorders: No Disorders: No HTN: No Hypercholesterolemia: No Kidney Stones: No Liver Disease: No Suicide Attempt (Hx): No Seizures: No Thyroid Disease: No Other medical history: ALCOHOL ABUSE - Surgical History Abdominal Surgery: No Appendectomy: No Cardiac Surgery: No Cholecystectomy: No Lung Surgery: No Neurologic Surgery: No Orthopedic Surgery: No - Reproductive History PID: No - Immunization History Immunization Up to Date: Yes - Psycho/Social/Smoking Cessation Hx Anxiety: No Suicidal Ideation: No Smoking Status: Yes Smoking History: Current every day smoker Have you smoked in the past 12 months: Yes Number of Cigarettes Smoked Daily: 10 Information on smoking cessation initiated: Yes 'Breaking Loose' booklet given: 07/11/17 Hx Alcohol Use: No Drug/Substance Use Hx: No Substance Use Type: Alcohol Hx Substance Use Treatment: Yes (DETOX,IOP) <Sushil Archibald - Last Filed: 07/11/17 19:26> <Marc Cornell - Last Filed: 07/11/17 23:48> - Past Medical History Allergies/Adverse Reactions: Allergies Allergy/AdvReac Type Severity Reaction Status Date / Time No Known Allergies Allergy Verified 02/16/17 18:01 Home Medications: Ambulatory Orders Famotidine [Pepcid -] 20 mg PO BID #60 tablet 07/11/17 Ondansetron [Zofran Odt -] 4 mg SL TID #21 od.tablet 07/11/17 Review of Systems - Review of Systems Constitutional: No: Chills, Fever Respiratory: No: Cough, Shortness of Breath Cardiac (ROS): No: Chest Pain, Lightheadedness, Palpitations ABD/GI: Yes: Nausea, Vomiting. No: Constipated, Diarrhea : No: Burning, Dysuria Integumentary: No: Rash Neurological: No: Headache, Numbness, Tingling, Weakness <Sushil Archibald - Last Filed: 07/11/17 19:26> *Physical Exam - Vital Signs Last Vital Signs Temp Pulse Resp BP Pulse Ox 97.9 F 115 H 16 133/63 99 07/11/17 15:23 07/11/17 15:23 07/11/17 15:23 07/11/17 15:23 07/11/17 15:23 - Physical Exam Comments: 07/11/17 16:01 General Appearance: Nourished, Mild Distress HEENT: No Pharyngeal Erythema, Tonsillar Exudate, Tonsillar Erythema Respiratory/Chest: Lungs Clear, Normal Breath Sounds. No Crackles, Rales, Rhonchi, Wheezing Cardiovascular: Regular Rhythm, Regular Rate. No Murmur, Gallop/S3, Gallop/S4 Gastrointestinal/Abdominal: Normal Bowel Sounds, Soft, Tenderness to palpation in the epigastric region. No Guarding, Rebound Extremity: Normal Capillary Refill Integumentary: Normal Color, Dry, Warm Neurologic: Fully Oriented, Alert, Normal Mood/Affect, Normal Response <Sushil Archibald - Last Filed: 07/11/17 19:26> - Vital Signs Last Vital Signs Temp Pulse Resp BP Pulse Ox 97.9 F 115 H 16 133/63 99 07/11/17 15:23 07/11/17 15:23 07/11/17 15:23 07/11/17 15:23 07/11/17 15:23 <Marc Cornell - Last Filed: 07/11/17 23:48> ED Treatment Course - LABORATORY CBC & Chemistry Diagram: 07/11/17 15:43 07/11/17 15:40 - Medications Given in the ED: ED Medications Discontinued Medications Generic Name Dose Route Start Last Admin Trade Name Freq PRN Reason Stop Dose Admin Ondansetron HCl 4 mg 07/11/17 15:24 07/11/17 15:43 Zofran Injection IVPB 07/11/17 15:25 4 mg ONCE ONE Administration <Sushil Archibald - Last Filed: 07/11/17 19:26> - LABORATORY CBC & Chemistry Diagram: 07/11/17 15:43 07/11/17 15:40 - ADDITIONAL ORDERS Additional order review: Laboratory Results 07/11/17 07/11/17 07/11/17 16:50 15:40 15:40 Sodium Potassium Chloride Carbon Dioxide Anion Gap BUN Creatinine Creat Clearance w eGFR Random Glucose Calcium Magnesium 1.3 L Total Bilirubin AST ALT Alkaline Phosphatase Total Protein Albumin Lipase Serum , Qual Negative Urine Color Yellow Urine Appearance Slcloudy Urine pH 7.0 Ur Specific [place] 1.015 Urine Protein 2+ H Urine Glucose (UA) Negative Urine Ketones 1+ H Urine Blood 1+ H Urine Nitrite Negative Urine Bilirubin Negative Urine Urobilinogen Negative Ur Leukocyte Esterase Negative Urine RBC 1 Urine WBC 3 Ur Epithelial Cells Few Hyaline Casts 1 Urine Mucus Few Urine HCG, Qual Negative 07/11/17 15:40 Sodium 140 Potassium 3.7 Chloride 98 Carbon Dioxide 27 Anion Gap 15 BUN 7 Creatinine 0.7 Creat Clearance w eGFR > 60 Random Glucose 88 Calcium 9.8 D Magnesium Total Bilirubin 1.0 AST 30 D ALT 26 D Alkaline Phosphatase 80 Total Protein 7.8 D Albumin 4.2 D Lipase 87 Serum , Qual Urine Color Urine Appearance Urine pH Ur Specific [place] Urine Protein Urine Glucose (UA) Urine Ketones Urine Blood Urine Nitrite Urine Bilirubin Urine Urobilinogen Ur Leukocyte Esterase Urine RBC Urine WBC Ur Epithelial Cells Hyaline Casts Urine Mucus Urine HCG, Qual 07/11/17 15:43 RBC 4.30 D MCV 101.9 H MCHC 34.3 RDW 15.7 H MPV 9.1 Neutrophils % 74.3 Lymphocytes % 15.7 D Monocytes % 8.7 Eosinophils % 0.1 D Basophils % 1.2 - Medications Given in the ED: ED Medications Discontinued Medications Generic Name Dose Route Start Last Admin Trade Name Freq PRN Reason Stop Dose Admin Acetaminophen 650 mg 07/11/17 17:46 07/11/17 17:58 Tylenol - PO 07/11/17 17:47 650 mg ONCE ONE Administration Diphenhydramine HCl 50 mg 07/11/17 20:09 07/11/17 20:27 Benadryl Injection - IVPB 07/11/17 20:10 50 mg ONCE ONE Administration Sodium Chloride 1,000 mls @ 1,000 mls/hr 07/11/17 15:24 07/11/17 15:43 Normal Saline - IV 07/11/17 16:23 1,000 mls/hr .Q1H ONE Administration Dextrose/Sodium Chloride 1,000 mls @ 1,000 mls/hr 07/11/17 16:21 07/11/17 16:43 D5-Ns - IV 07/11/17 17:20 1,000 mls/hr ONCE ONE Administration Magnesium Sulfate 2 gm 07/11/17 17:26 07/11/17 17:32 Magnesium Sulfate IVPB 07/11/17 17:27 2 gm ONCE ONE Administration Metoclopramide HCl 10 mg 07/11/17 20:08 07/11/17 20:27 Reglan Injection - IVPB 07/11/17 20:09 10 mg ONCE ONE Administration Ondansetron HCl 4 mg 07/11/17 15:24 07/11/17 15:43 Zofran Injection IVPB 07/11/17 15:25 4 mg ONCE ONE Administration Sucralfate 1 gm 07/11/17 17:38 07/11/17 17:58 Carafate Oral Suspension - PO 07/11/17 17:39 1 gm ONCE ONE Administration Thiamine HCl 200 mg 07/11/17 16:20 07/11/17 17:33 Vitamin B1 Injection - IVPB 07/11/17 16:21 Not Given ONCE ONE <Marc Cornell - Last Filed: 07/11/17 23:48> Medical Decision Making - Medical Decision Making 07/11/17 16:02 Patient is a 41 year old female with a history of alcohol abuse who presents with intractable vomiting following binge drinking 1 bottle of E&J yesterday evening. Differential includes but is not limited to: Alcoholic gastritis, Pancreatits, Withdrawal, Perforation, Boerhave's, AKA. Given her presenting symptoms similar to previous presentations, it is likely that her symptoms are due to alcoholic gastritis. However we will obtain a chest radiograph to evaluate for perforation or boerhave's. We will also obtain a cbc, cmp, lipase , mg and UA to evaluate for other etiologies including pancreatitis or metabolic derangements. 07/11/17 18:59 CBC, cmp, lipase are unremarkable, but demonstrate a small anion gap of 15. MG is low to 1.3 and we will replete. UA demonstrates some ketones in the urine making AKA a likely diagnosis. Chest radiograph is unremarkable and does not show signs of free air under the diaphragm or pneumomediastinum as preliminarily read by ED provider pending official radiology read. Patient continues to complain of some abdominal pain. We will treat her symptomatically. If she clinically improves, it is likely she will be able to be discharged. We will do a PO challenge and reevaluate. <Sushil Archibald - Last Filed: 07/11/17 19:26> *DC/Admit/Observation/Transfer <Sushil Archibald - Last Filed: 07/11/17 19:26> <Marc Cornell - Last Filed: 07/11/17 23:48> Diagnosis at time of Disposition: Alcohol abuse, Epigastric pain, Hypomagnesemia Nausea and vomiting Qualifiers: Vomiting type: unspecified Vomiting Intractability: non-intractable Qualified Code(s): R11.2 - Nausea with vomiting, unspecified - Discharge Dispostion Disposition: HOME Condition at time of disposition: Stable - Referrals Referrals: Yeimi Patel MD [Primary Care Provider] - - Patient Instructions Printed Discharge Instructions: DI for Alcohol Abuse, Nausea and Vomiting-Adult , DI for Epigastric Pain
[2017-07-11 15:59] LABS: BASOPHIL 1.2 % (0-2.0); EOSINOPHIL 0.1 % (0-4.5); MCHC 34.3 g/dl (32.0-36.0); MEAN CELL VOLUME 101.9 fl (80-96); MEAN PLT VOLUME 9.1 fl (7.5-11.1); NEUTROPHILS 74.3 % (42.8-82.8); PLATELET COUNT 297 K/MM3 (134-434); RDW 15.7 % (11.6-15.6); WHITE BLOOD COUNT 5.4 K/mm3 (4.0-10.0)
[2017-07-11] MEDS ORDERED: THIAMINE HCL 200 MG/2 ML VIAL IVPB ONE (16:20)
[2017-07-11] MEDS ORDERED: DEXTROSE 5%-NORMAL SALINE 1,000 ML IV ONE (16:21)
[2017-07-11 16:23] LABS: ALBUMIN 4.2 g/dl (3.4-5.0); ALK PHOS 80 U/L (45-117); ANION GAP 15 (8-16); CALCIUM 9.8 mg/dL (8.5-10.1); CO2 27 mmol/L (21-32); CREATININE 0.7 mg/dL (0.55-1.02); GLUCOSE,RANDOM 88 mg/dL (74-106); SGOT/AST 30 U/L (15-37); SGPT/ALT 26 U/L (12-78); TOT PROT 7.8 g/dl (6.4-8.2)
[2017-07-11] MEDS ORDERED: FOLIC ACID INJECTION - 1 MG, THIAMINE HCL 100 MG, MULTIVIT INJECTION ADULT 10 ML in SOD... IVPB ONE (16:32)
[2017-07-11 17:01] LABS: URINE APPEARANCE SLCLOUDY; URINE BILIRUBIN NEGATIVE (NEGATIVE); URINE BLOOD 1+ (NEGATIVE); URINE COLOR YELLOW; URINE GLUCOSE (UA) NEGATIVE (NEGATIVE); URINE KETONE 1+ (NEGATIVE); URINE LEUK ESTERASE NEGATIVE (NEGATIVE); URINE NITRITE NEGATIVE (NEGATIVE); URINE UROBILINOGEN NEGATIVE mg/dL (0.2-1.0)
[2017-07-11 17:06] LABS: URINE PROTEIN 2+ (NEGATIVE)
[2017-07-11 17:10] LABS: URINE HYALINE CAST 1 /lpf; URINE MUCUS FEW; URINE RBC 1 /hpf (0-3); URINE WBC 3 /hpf (3-5)
[2017-07-11] MEDS ORDERED: MAGNESIUM SULF 50% (8.12 MEQ/2 ML-1 GM VIAL) IVPB ONE (17:26)
[2017-07-11] MEDS ORDERED: MAGNESIUM SULF 50% (8.12 MEQ/2 ML-1 GM VIAL) ONE (17:26)
[2017-07-11] MEDS ORDERED: SUCRALFATE 1 GM/10 ML UNIT DOSE CUPS PO ONE (17:38)
[2017-07-11] MEDS ORDERED: ACETAMINOPHEN 325 MG TABLET (FP) PO ONE (17:46)
[2017-07-11] MEDS ORDERED: ACETAMINOPHEN 325 MG TABLET (FP) ONE (17:54)
[2017-07-11] MEDS ORDERED: SUCRALFATE 1 GM TABLET (FP) ONE (17:54)
[2017-07-11] MEDS ORDERED: METOCLOPRAMIDE HCL INJECTION 10 MG/2 ML VIAL IVPB ONE (20:08)
[2017-07-11] MEDS ORDERED: METOCLOPRAMIDE HCL INJECTION 10 MG/2 ML VIAL ONE (20:15)
--- NOTE | 2017-07-11 21:06 | PDOC ---
Attending Attestation - Resident Resident Name: Sushil Archibald - HPI HPI: 07/11/17 21:02 41-year-old female with history of alcohol abuse presents to the ER with intractable nausea, several episodes of nonbloody nonbilious vomiting and severe epigastric pain after going on an alcohol binge related to family stressors - Physicial Exam PE: 07/11/17 21:03 In the ER, patient is awake and alert, writhing in pain, mildly tachycardic on initial evaluation. HEENT: wnl, without scleral icterus; mm-dry cta; rrr abd: On serial exams, mild to moderate epigastric tenderness is noted, there is no guarding or rebound; extr: No extremity edema; neoro: Cranial nerves II through XII are grossly intact; motor is 5 of 54; gait is stable. - Medical Decision Making 07/11/17 21:05 41-year-old female with history of vocal abuse presents with nausea, several episodes of nonbloody, nonbilious vomiting and severe epigastric pain. Differential diagnoses includes esophagitis versus gastritis that she spent to call to disease versus pancreatitis versus AKA. We'll administer D5NS, we'll administer thiamin and folic acid. We'll administer H2 blockers, Carafate and Maalox. Will aggressively hydrate. We'll obtain CBC/CMP/magnesium/lipase/chest x -ray to rule out free air and pneumomediastinum. Will reassess. 07/11/17 22:43 CBC is within normal limit. CMP reveals minimally elevated anion gap of 15 and moderate hypomagnesemia of 1.3. Patient received 2 g of magnesium sulfate IV.Patient reported no episode of nonbloody nonbilious vomiting after drinking orange juice. Patient received Reglan and Benadryl and has been asymptomatic since. We'll continue to hydrate. Will reassess. Likely discharge if patient tolerates by mouth. 07/11/17 23:26 Patient reassessed. Patient is resting comfortably, with minimal symptoms, tolerates by mouth. At this time, I believe patient's safe for discharge with outpatient follow-up.
--- NOTE | 2017-07-12 11:32 | EKG ---
Test Reason : Blood Pressure : / mmHG Vent. Rate : 092 BPM Atrial Rate : 092 BPM P-R Int : 118 ms QRS Dur : 068 ms QT Int : 390 ms P-R-T Axes : 066 040 056 degrees QTc Int : 482 ms POOR DATA QUALITY, INTERPRETATION MAY BE ADVERSELY AFFECTED NORMAL SINUS RHYTHM WITH SINUS ARRHYTHMIA POSSIBLE LEFT ATRIAL ENLARGEMENT PROLONGED QT ABNORMAL ECG WHEN COMPARED WITH ECG OF 16-FEB-2017 17:45, QT HAS SHORTENED Confirmed by DUNCAN MURPHY MD ([id number]) on 07/12/2017 11:32:14 AM Referred By: Confirmed By:DUNCAN MURPHY MD
== END 2017-07-12 00:20 | disposition home or self-care (01) ==
LOC: JER 15:01
PROC: 3E0337Z Introduction of Electrolytic and Water Balance Substance into Peripheral Vein, Percutaneous Approach (ICD-10-PCS; principal; 2017-07-11)
PROC: 3E033GC Introduction of Other Therapeutic Substance into Peripheral Vein, Percutaneous Approach (ICD-10-PCS; 2017-07-11)
PROC: 3E033GC Introduction of Other Therapeutic Substance into Peripheral Vein, Percutaneous Approach (ICD-10-PCS; 2017-07-11)
PROC: 3E033GC Introduction of Other Therapeutic Substance into Peripheral Vein, Percutaneous Approach (ICD-10-PCS; 2017-07-11)
DX: K29.20 Alcoholic gastritis without bleeding (principal); E83.42 Hypomagnesemia; F17.210 Nicotine dependence, cigarettes, uncomplicated
CPT/HCPCS: 36415; 71020-TC; 80053; 81003; 81015; 83690; 83735; 84703; 85025; 93005; 93010; 99285-25

== ENCOUNTER 2018-01-14 18:08 | Inpatient (IN) | payer OTHER ==
[2018-01-14 19:02] VITALS: BMI 26.6
--- NOTE | 2018-01-14 21:18 | HP ---
CIWA Score - CIWA Score Nausea/Vomitin (reports unbale to tolerate food) Muscle Tremors: 2 Anxiety: 1-Mildly Anxious Agitation: 0-Normal Activity Paroxysmal Sweats: 3 Orientation: 0-Oriented Tacttile Disturbances: 0-None Auditory Disturbances: 0-None Visual Disturbances: 2-Mild Sensitivity Headache: 3-Moderate CIWA-Ar Total Score: 16 Admission ROS BHS - HPI Chief Complaint: "I am here to detox from alcohol, I feel sick, I've been throwing up all day and can not hold anything down." Allergies/Adverse Reactions: Allergies Allergy/AdvReac Type Severity Reaction Status Date / Time No Known Allergies Allergy Verified 01/14/18 19:08 History of Present Illness: 42 yo female with chronic alcohol and nicotine dependence is here seeking detox. Reports hx of blackout related alcohol consumption. Denies any history of seizures. Denies suicidal / homicidal ideation or suicide attempts. Denies any significant healht and psychiatric history. Reports feeling stressed because two of children are currently in senior living. Longest period of sobriety 11 months. Last detox at [facility] April 2016. Exam Limitations: No Limitations - Ebola screening Have you traveled outside of the country in the last 21 days: No Have you had contact with anyone from an Ebola affected area: No Have you been sick,other than usual withdrawal symptoms: No Do you have a fever: No - Review of Systems Constitutional: Chills, Loss of Appetite, Changes in sleep, Weakness EENT: reports: Dental Problems (wears dentures) Respiratory: reports: No Symptoms reported Cardiac: reports: No Symptoms Reported GI: reports: Nausea, Poor Appetite, Poor Fluid Intake, Vomiting, Abdominal cramping : reports: No Symptoms Reported Musculoskeletal: reports: Back Pain (radiates left lower extremity) Integumentary: reports: No Symptoms Reported Neuro: reports: Headache (5/10), Tingling (b/l hands) Endocrine: reports: No Symptoms Reported Hematology: reports: No Symptoms Reported Psychiatric: reports: Orientated x3, Depressed Patient History - Patient Medical History Hx Anemia: No Hx Asthma: No Hx Chronic Obstructive Pulmonary Disease (COPD): No Hx Cancer: No Hx Cardiac Disorders: No Hx Congestive Heart Failure: No Hx Hypertension: No Hx Hypercholesterolemia: No Hx Pacemaker: No HX Cerebrovascular Accident: No Hx Seizures: No Hx Dementia: No Hx Diabetes: No Hx Gastrointestinal Disorders: No Hx Liver Disease: No Hx Genitourinary Disorders: No Hx Sexually Transmitted Disorders: No Hx Renal Disease (ESRD): No Hx Thyroid Disease: No Hx Human Immunodeficiency Virus (HIV): No (negative last tested October ) Hx Hepatitis C: No Hx Depression: Yes Hx Suicide Attempt: No Hx Bipolar Disorder: No Hx Schizophrenia: No - Patient Surgical History Past Surgical History: No Hx Neurologic Surgery: No Hx Cataract Extraction: No Hx Cardiac Surgery: No Hx Lung Surgery: No Hx Breast Surgery: No Hx Breast Biopsy: No Hx Abdominal Surgery: No Hx Appendectomy: No Hx Cholecystectomy: No Hx Genitourinary Surgery: No Hx Section: No Hx Orthopedic Surgery: No Hx Hysterectomy: No Anesthesia Reaction: No - PPD History Previous Implant?: Yes Documented Results: Negative w/proof Date: 05/03/16 PPD to be Administered?: Yes - Reproductive History Patient is a Female of Child Bearing Age (11 -55 yrs old): Yes Last Menstrual Period: 04/14/16 Patient : No - Smoking Cessation Smoking history: Current every day smoker Have you smoked in the past 12 months: Yes Aproximately how many cigarettes per day: 10 Hx Chewing Tobacco Use: No Initiated information on smoking cessation: Yes 'Breaking Loose' booklet given: 01/14/18 - Substance & Tx. History Hx Alcohol Use: Yes Hx Substance Use: Yes Substance Use Type: Alcohol Hx Substance Use Treatment: Yes ([facility] April 2016) - Substances Abused Alcohol Route: Oral Frequency: Daily Amount used: LIQUOR- 2 PINTS Age of first use: 17 Date of Last Use: 01/13/18 Family Disease History - Family Disease History Family Disease History: Heart Disease: Mother (HTN,ALCOHOL), CA: Grandparent ( BRAIN), Father (ALCOHOL,LUNG), Other: Father, Mother Admission Physical Exam BHS - Vital Signs Vital Signs: Vital Signs - 24 hr 01/14/18 19:00 Temperature 98.7 F Pulse Rate 117 H Respiratory 18 Rate Blood Pressure 124/90 - Physical General Appearance: Yes: Mild Distress, Sweating, Anxious, Other (overly dressed for current weather, as per patient she feels cold) HEENTM: Yes: EOMI, Hearing grossly Normal, Normal ENT Inspection, Normocephalic , Normal Voice, NATHAN, Pharynx Normal, Tm's normal, Other (poor dentition) Respiratory: Yes: Chest Non-Tender, Lungs Clear, Normal Breath Sounds, No Respiratory Distress, No Accessory Muscle Use Neck: Yes: No masses,lesions,Nodules, Trachea in good position Breast: Yes: Breast Exam Deferred Cardiology: Yes: Regular Rhythm, Regular Rate Abdominal: Yes: Normal Bowel Sounds, Non Tender, Flat, Soft Genitourinary: Yes: Within Normal Limits Back: Yes: Normal Inspection Musculoskeletal: Yes: full range of Motion, Gait Steady, Back pain Extremities: Yes: Normal Capillary Refill, Normal Inspection, Normal Range of Motion, Non-Tender Neurological: Yes: Within Normal Limits, engineering 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 II-XII NML intact, Fully Oriented, Alert, Motor Strength 5/5, Depressed Affect Integumentary: Yes: Within Normal Limits Lymphatic: Yes: Within Normal Limits - Diagnostic (1) Nicotine dependence Current Visit: Yes Status: Chronic Qualifiers: Nicotine product type: cigarettes (2) Poor dentition Current Visit: Yes Status: Chronic (3) Dehydration Current Visit: Yes Status: Acute (4) Alcohol dependence with uncomplicated withdrawal Current Visit: Yes Status: Acute (5) Nausea & vomiting Current Visit: Yes Status: Acute Qualifiers: Vomiting type: unspecified Vomiting Intractability: non-intractable Qualified Code(s): R11.2 - Nausea with vomiting, unspecified (6) Acute low back pain with left-sided sciatica Current Visit: Yes Status: Acute Qualifiers: Back pain laterality: left Qualified Code(s): M54.42 - Lumbago with sciatica, left side Cleared for Admission [facility] - Detox or Rehab [facility] Level of Care: Medically Managed Detox Regimen/Protocol: Librium [facility] Breath Alcohol Content Breath Alcohol Content: 0 Urine Pregancy Test - Result Urine Test Results: Negative- NO Line Present Urine Drug Screen - Results Drug Screen Negative: No Urine Drug Screen Results: BAR-Barbiturates
[2018-01-14] MEDS ORDERED: ACETAMINOPHEN 325 MG TABLET (FP) PO PRN (21:24)
[2018-01-14] MEDS ORDERED: MAGNESIUM CITRATE 300 ML BOTTLE PO PRN (21:24)
[2018-01-14] MEDS ORDERED: hydrOXYzine PAMOATE 50 MG CAPSULE (FP) PO PRN (21:24)
[2018-01-14] MEDS ORDERED: LOPERAMIDE HCL 2 MG CAPSULE PO PRN (21:24)
[2018-01-14] MEDS ORDERED: MAG HYDROX/AL HYDROX/SIMETH 30 ML UNIT-DOSE CUP PO PRN (21:24)
[2018-01-14] MEDS ORDERED: MENTHOL/PHENOL 1 EACH UD MM PRN (21:24)
[2018-01-14] MEDS ORDERED: guaiFENesin/D-METHORPHAN HB 10 ML UNIT-DOSE CUPS PO PRN (21:24)
[2018-01-14] MEDS ORDERED: chlordiazePOXIDE HCL 25 MG CAPSULE PO ONE (21:24)
[2018-01-14] MEDS ORDERED: MAGNESIUM HYDROX 2400MG/30ML ORAL SUSPENSION 30 ML CUP PO PRN (21:24)
[2018-01-14] MEDS ORDERED: chlordiazePOXIDE HCL 25 MG CAPSULE PO PRN (21:24)
[2018-01-14] MEDS ORDERED: P-EPHED 60MG/TRIPROLIDI 2.5MG TABLET PO PRN (21:24)
[2018-01-14] MEDS ORDERED: IBUPROFEN 400 MG TABLET (FP) PO PRN (21:24)
[2018-01-14] MEDS ORDERED: ONDANSETRON *ODT* 4 MG TABLET SL PRN (21:29)
[2018-01-14] MEDS: CYCLOBENZAPRINE HCL 5 MG TABLET PO SCH (22:46)
[2018-01-14] MEDS: chlordiazePOXIDE HCL 25 MG CAPSULE PO SCH (22:46)
[2018-01-14] MEDS: THIAMINE HCL 100 MG TABLET (FP) PO SCH (22:47)
[2018-01-15 00:34] LABS: URINE APPEARANCE SL CLOUDY; URINE COLOR AMBER
[2018-01-15 00:35] LABS: URINE BLOOD 1+ (NEGATIVE); URINE GLUCOSE (UA) NEGATIVE (NEGATIVE); URINE KETONE 1+ (NEGATIVE); URINE PROTEIN 2+ (NEGATIVE); URINE UROBILINOGEN 4.0 E.U/dl mg/dL (0.2-1.0)
[2018-01-15 00:36] LABS: EPI CELLS FEW /HPF (FEW); URINE LEUK ESTERASE NEGATIVE (NEGATIVE); URINE NITRITE NEGATIVE (NEGATIVE)
[2018-01-15 00:37] LABS: URINE HYALINE CAST 4 /lpf; URINE MUCUS MANY
[2018-01-15] MEDS: CYCLOBENZAPRINE HCL 5 MG TABLET PO SCH ×3 (06:05→22:59)
[2018-01-15] MEDS: chlordiazePOXIDE HCL 25 MG CAPSULE PO SCH ×4 (06:05→22:59)
--- NOTE | 2018-01-15 08:55 | PN ---
BHS CIWA - CIWA Score Nausea/Vomitin Muscle Tremors: 4-Moderate,w/Arms Extend Anxiety: 3 Agitation: 3 Paroxysmal Sweats: 1-Minimal Palms Moist Orientation: 0-Oriented Tacttile Disturbances: 1-Very Mild Itch/Numbness Auditory Disturbances: 0-None Visual Disturbances: 0-None Headache: 0-None Present CIWA-Ar Total Score: 14 BHS Progress Note (SOAP) Subjective: nausea vomiting tremor sweat anxiety restlessness mild headache Objective: 01/15/18 08:55 Vital Signs Temperature 98.1 F 01/15/18 06:00 Pulse Rate 95 H 01/15/18 06:00 Respiratory Rate 18 01/15/18 06:00 Blood Pressure 141/89 01/15/18 06:00 O2 Sat by Pulse Oximetry (%) Laboratory Last Values Urine Color Colleen 01/14/18 23:40 Urine Appearance Sl cloudy 01/14/18 23:40 Urine pH 6.0 (5.0-8.0) 01/14/18 23:40 Ur Specific [place] 1.028 (1.001-1.035) 01/14/18 23:40 Urine Protein 2+ (NEGATIVE) H 01/14/18 23:40 Urine Glucose (UA) Negative (NEGATIVE) 01/14/18 23:40 Urine Ketones 1+ (NEGATIVE) H 01/14/18 23:40 Urine Blood 1+ (NEGATIVE) H 01/14/18 23:40 Urine Nitrite Negative (NEGATIVE) 01/14/18 23:40 Urine Bilirubin 2.0 (NEGATIVE) 01/14/18 23:40 Urine Urobilinogen 4.0 e.u/dl mg/dL (0.2-1.0) H 01/14/18 23:40 Ur Leukocyte Esterase Negative (NEGATIVE) 01/14/18 23:40 Urine WBC (Auto) 1 /hpf (3-5) 01/14/18 23:40 Urine RBC (Auto) 9 /hpf (0-3) 01/14/18 23:40 Ur Epithelial Cells Few /HPF (FEW) 01/14/18 23:40 Hyaline Casts 4 /lpf 01/14/18 23:40 Urine Mucus Many 01/14/18 23:40 lab noted Assessment: 01/15/18 08:55 withdrawal sx Plan: continue detox
[2018-01-15 10:21] LABS: HEMATOCRIT 36.1 % (32.4-45.2); HEMOGLOBIN 12.5 GM/dL (10.7-15.3); MCH 34.4 pg (25.7-33.7); MCHC 34.5 g/dl (32.0-36.0); MEAN CELL VOLUME 99.6 fl (80-96); MEAN PLT VOLUME 9.9 fl (7.5-11.1); PLATELET COUNT 130 K/MM3 (134-434); RBC 3.62 M/mm3 (3.60-5.2); RDW 14.1 % (11.6-15.6); WHITE BLOOD COUNT 3.3 K/mm3 (4.0-10.0)
[2018-01-15 10:30] LABS: CHLORIDE 92 mmol/L (98-107); SODIUM 134 mmol/L (136-145)
[2018-01-15] MEDS: NICOTINE 14 MG/24 HOURS TOPICAL PATCH TD SCH (10:57)
[2018-01-15] MEDS: PRENATAL VITAMINS W/ FOLIC ACID TABLET (FP) PO SCH (10:57)
[2018-01-15 11:01] LABS: ALBUMIN 3.6 g/dl (3.4-5.0); ALK PHOS 69 U/L (45-117); ANION GAP 13 (8-16); BILIRUBIN,TOTAL 1.1 mg/dL (0.2-1.0); BLOOD UREA NITROGEN 9 mg/dL (7-18); CALCIUM 8.9 mg/dL (8.5-10.1); CO2 29 mmol/L (21-32); CREATININE 0.7 mg/dL (0.55-1.02); GLUCOSE,RANDOM 99 mg/dL (74-106); SGOT/AST 32 U/L (15-37); SGPT/ALT 44 U/L (12-78); TOT PROT 6.8 g/dl (6.4-8.2)
[2018-01-15 11:17] LABS: POTASSIUM 2.8 mmol/L (3.5-5.1)
--- NOTE | 2018-01-15 11:31 | CONSULT ---
[facility] Psychiatric Consult - Data Date of interview: 01/15/18 Admission source: [facility] Identifying data: Readmission to [facility] for this 42 y/o AA female seeking detox [facility],[place] ,for alcohol dependence.Patient is ,a mother of three,domiciled,unemployed (recent loss of job) and deprived of a source of income. Substance Abuse History: Discussed in this session.Ms Levin endorses an extensive history of heavy consumption of alcohol on a daily basis.Smoking history: Current every day smoker. Have you smoked in the past 12 months: Yes. Aproximately how many cigarettes per day: 10. Hx Chewing Tobacco Use: No. Initiated information on smoking cessation: Yes. 'Breaking Loose' booklet given : 01/14/18. - Substance & Tx. History. Hx Alcohol Use: Yes. Hx Substance Use : Yes. Substance Use Type: Alcohol. Hx Substance Use Treatment: Yes ([facility] April 2016). - Substances Abused. Alcohol. Route: Oral. Frequency: Daily. Amount used: LIQUOR- 2 PINTS. Age of first use: 17. Date of Last Use: 01/13/18 Medical History: GERD. Psychiatric History: Patient denies. Physical/Sexual Abuse/Trauma History: Patient declines to discuss this domain. Additional Comment: Urine Drug Screen Results: BAR-Barbiturates.Noted. Mental Status Exam - Mental Status Exam Alert and Oriented to: Time, Place, Person Cognitive Function: Good Patient Appearance: Well Groomed Mood: Nervous, Withdrawn, Anxious Affect: Mood Congruent Patient Behavior: Fatigued, Appropriate, Cooperative Speech Pattern: Clear, Appropriate Voice Loudness: Normal Thought Process: Intact, Goal Oriented Thought Disorder: Not Present Hallucinations: Denies Suicidal Ideation: Denies Homicidal Ideation: Denies Insight/Judgement: Fair Sleep: Poorly, Difficulty falling asleep Appetite: Good Muscle strength/Tone: Normal Gait/Station: Other (not observed ; patient remained supine during entire interview at bedside) Psychiatric Findings - Problem List ([place] 1, 2,3) (1) Alcohol dependence with uncomplicated withdrawal Current Visit: Yes Status: Acute (2) Nicotine dependence Current Visit: Yes Status: Acute Qualifiers: Nicotine product type: cigarettes (3) Insomnia Current Visit: Yes Status: Acute - Initial Treatment Plan Initial Treatment Plan: Psychoeducation.Sleep hygiene.Detoxification in progress.Ambien 5 mg po hs prn.Patient is made aware of risk of sleep- walking.She agrees to follow this plan of care.Observation.
--- NOTE | 2018-01-15 12:03 | EKG ---
Test Reason : Blood Pressure : / mmHG Vent. Rate : 083 BPM Atrial Rate : 083 BPM P-R Int : 134 ms QRS Dur : 072 ms QT Int : 384 ms P-R-T Axes : 010 054 053 degrees QTc Int : 451 ms NORMAL SINUS RHYTHM NORMAL ECG WHEN COMPARED WITH ECG OF 11-JUL-2017 15:55, NO SIGNIFICANT CHANGE WAS FOUND Confirmed by MD Germain Edward ([id number]) on 01/15/2018 12:03:08 PM Referred By: Confirmed By:Herbert Germain MD
[2018-01-15] MEDS: POTASSIUM CHLORIDE ORAL LIQUID 20 MEQ/15 ML PO SCH ×2 (12:44→22:59)
[2018-01-15] MEDS: THIAMINE HCL 100 MG TABLET (FP) PO SCH (22:58)
[2018-01-16] MEDS: CYCLOBENZAPRINE HCL 5 MG TABLET PO SCH ×3 (06:10→22:15)
[2018-01-16] MEDS: chlordiazePOXIDE HCL 25 MG CAPSULE PO SCH ×3 (06:10→18:13)
[2018-01-16] MEDS: NICOTINE POLACRILEX 2 MG GUM BC PRN ×2 (09:12→20:08)
--- NOTE | 2018-01-16 09:24 | PN ---
[facility] CIWA - CIWA Score Nausea/Vomitin-No Nausea/No Vomiting Muscle Tremors: 4-Moderate,w/Arms Extend Anxiety: 4-Mod. Anxious/Guarded Agitation: 3 Paroxysmal Sweats: 1-Minimal Palms Moist Orientation: 0-Oriented Tacttile Disturbances: 0-None Auditory Disturbances: 0-None Visual Disturbances: 0-None Headache: 0-None Present CIWA-Ar Total Score: 12 BHS Progress Note (SOAP) Subjective: sweat anxiety tremor no gi distress Objective: 01/16/18 09:23 Vital Signs Temperature 97.9 F 01/16/18 06:37 Pulse Rate 85 01/16/18 06:37 Respiratory Rate 16 01/16/18 06:37 Blood Pressure 97/64 01/16/18 06:37 O2 Sat by Pulse Oximetry (%) Laboratory Last Values WBC 3.3 K/mm3 (4.0-10.0) L D 01/15/18 07:00 RBC 3.62 M/mm3 (3.60-5.2) 01/15/18 07:00 Hgb 12.5 GM/dL (10.7-15.3) D 01/15/18 07:00 Hct 36.1 % (32.4-45.2) D 01/15/18 07:00 MCV 99.6 fl (80-96) H 01/15/18 07:00 MCH 34.4 pg (25.7-33.7) H 01/15/18 07:00 MCHC 34.5 g/dl (32.0-36.0) 01/15/18 07:00 RDW 14.1 % (11.6-15.6) 01/15/18 07:00 Plt Count 130 K/MM3 (134-434) L D 01/15/18 07:00 MPV 9.9 fl (7.5-11.1) 01/15/18 07:00 Sodium 134 mmol/L (136-145) L 01/15/18 07:00 Potassium 2.8 mmol/L (3.5-5.1) L* 01/15/18 07:00 Chloride 92 mmol/L (98-107) L 01/15/18 07:00 Carbon Dioxide 29 mmol/L (21-32) 01/15/18 07:00 Anion Gap 13 (8-16) 01/15/18 07:00 BUN 9 mg/dL (7-18) 01/15/18 07:00 Creatinine 0.7 mg/dL (0.55-1.02) 01/15/18 07:00 Creat Clearance w eGFR > 60 (>60) 01/15/18 07:00 Random Glucose 99 mg/dL (74-106) 01/15/18 07:00 Calcium 8.9 mg/dL (8.5-10.1) 01/15/18 07:00 Total Bilirubin 1.1 mg/dL (0.2-1.0) H 01/15/18 07:00 AST 32 U/L (15-37) 01/15/18 07:00 ALT 44 U/L (12-78) 01/15/18 07:00 Alkaline Phosphatase 69 U/L (45-117) 01/15/18 07:00 Total Protein 6.8 g/dl (6.4-8.2) 01/15/18 07:00 Albumin 3.6 g/dl (3.4-5.0) 01/15/18 07:00 Urine Color Colleen 01/14/18 23:40 Urine Appearance Sl cloudy 01/14/18 23:40 Urine pH 6.0 (5.0-8.0) 01/14/18 23:40 Ur Specific [place] 1.028 (1.001-1.035) 01/14/18 23:40 Urine Protein 2+ (NEGATIVE) H 01/14/18 23:40 Urine Glucose (UA) Negative (NEGATIVE) 01/14/18 23:40 Urine Ketones 1+ (NEGATIVE) H 01/14/18 23:40 Urine Blood 1+ (NEGATIVE) H 01/14/18 23:40 Urine Nitrite Negative (NEGATIVE) 01/14/18 23:40 Urine Bilirubin 2.0 (NEGATIVE) 01/14/18 23:40 Urine Urobilinogen 4.0 e.u/dl mg/dL (0.2-1.0) H 01/14/18 23:40 Ur Leukocyte Esterase Negative (NEGATIVE) 01/14/18 23:40 Urine WBC (Auto) 1 /hpf (3-5) 01/14/18 23:40 Urine RBC (Auto) 9 /hpf (0-3) 01/14/18 23:40 Ur Epithelial Cells Few /HPF (FEW) 01/14/18 23:40 Hyaline Casts 4 /lpf 01/14/18 23:40 Urine Mucus Many 01/14/18 23:40 RPR Titer Nonreactive (NONREACTIVE) 01/15/18 07:00 lab noted continue potassium supplement Assessment: 01/16/18 09:24 withdrawal sx Plan: continue detox
[2018-01-16] MEDS: NICOTINE 14 MG/24 HOURS TOPICAL PATCH TD SCH (10:40)
[2018-01-16] MEDS: POTASSIUM CHLORIDE ORAL LIQUID 20 MEQ/15 ML PO SCH ×2 (10:40→22:15)
[2018-01-16] MEDS: PRENATAL VITAMINS W/ FOLIC ACID TABLET (FP) PO SCH (10:40)
[2018-01-16] MEDS: ZOLPIDEM TARTRATE 5 MG TABLET PO PRN (22:15)
[2018-01-16] MEDS: THIAMINE HCL 100 MG TABLET (FP) PO SCH (22:15)
[2018-01-16] MEDS: chlordiazePOXIDE 5 MG CAPSULE PO SCH (22:15)
[2018-01-17] MEDS: CYCLOBENZAPRINE HCL 5 MG TABLET PO SCH ×3 (05:29→22:39)
[2018-01-17] MEDS: chlordiazePOXIDE 5 MG CAPSULE PO SCH ×3 (06:29→17:40)
--- NOTE | 2018-01-17 09:02 | PN ---
BHS Progress Note (SOAP) Subjective: alert oriented x 3 tolerate food and fluid well no tremor less sweat Objective: 01/17/18 08:58 Vital Signs Temperature 97.9 F 01/17/18 06:34 Pulse Rate 99 H 01/17/18 06:34 Respiratory Rate 18 18 06:34 Blood Pressure 92/58 01/17/18 06:34 O2 Sat by Pulse Oximetry (%) Laboratory Last Values WBC 3.3 K/mm3 (4.0-10.0) L D 01/15/18 07:00 RBC 3.62 M/mm3 (3.60-5.2) 01/15/18 07:00 Hgb 12.5 GM/dL (10.7-15.3) D 01/15/18 07:00 Hct 36.1 % (32.4-45.2) D 01/15/18 07:00 MCV 99.6 fl (80-96) H 01/15/18 07:00 MCH 34.4 pg (25.7-33.7) H 01/15/18 07:00 MCHC 34.5 g/dl (32.0-36.0) 01/15/18 07:00 RDW 14.1 % (11.6-15.6) 01/15/18 07:00 Plt Count 130 K/MM3 (134-434) L D 01/15/18 07:00 MPV 9.9 fl (7.5-11.1) 01/15/18 07:00 Sodium 134 mmol/L (136-145) L 01/15/18 07:00 Potassium 2.8 mmol/L (3.5-5.1) L* 01/15/18 07:00 Chloride 92 mmol/L (98-107) L 01/15/18 07:00 Carbon Dioxide 29 mmol/L (21-32) 01/15/18 07:00 Anion Gap 13 (8-16) 01/15/18 07:00 BUN 9 mg/dL (7-18) 01/15/18 07:00 Creatinine 0.7 mg/dL (0.55-1.02) 01/15/18 07:00 Creat Clearance w eGFR > 60 (>60) 01/15/18 07:00 Random Glucose 99 mg/dL (74-106) 01/15/18 07:00 Calcium 8.9 mg/dL (8.5-10.1) 01/15/18 07:00 Total Bilirubin 1.1 mg/dL (0.2-1.0) H 01/15/18 07:00 AST 32 U/L (15-37) 01/15/18 07:00 ALT 44 U/L (12-78) 01/15/18 07:00 Alkaline Phosphatase 69 U/L (45-117) 01/15/18 07:00 Total Protein 6.8 g/dl (6.4-8.2) 01/15/18 07:00 Albumin 3.6 g/dl (3.4-5.0) 01/15/18 07:00 Urine Color Colleen 01/14/18 23:40 Urine Appearance Sl cloudy 01/14/18 23:40 Urine pH 6.0 (5.0-8.0) 01/14/18 23:40 Ur Specific [place] 1.028 (1.001-1.035) 01/14/18 23:40 Urine Protein 2+ (NEGATIVE) H 01/14/18 23:40 Urine Glucose (UA) Negative (NEGATIVE) 01/14/18 23:40 Urine Ketones 1+ (NEGATIVE) H 01/14/18 23:40 Urine Blood 1+ (NEGATIVE) H 01/14/18 23:40 Urine Nitrite Negative (NEGATIVE) 01/14/18 23:40 Urine Bilirubin 2.0 (NEGATIVE) 01/14/18 23:40 Urine Urobilinogen 4.0 e.u/dl mg/dL (0.2-1.0) H 01/14/18 23:40 Ur Leukocyte Esterase Negative (NEGATIVE) 01/14/18 23:40 Urine WBC (Auto) 1 /hpf (3-5) 01/14/18 23:40 Urine RBC (Auto) 9 /hpf (0-3) 01/14/18 23:40 Ur Epithelial Cells Few /HPF (FEW) 01/14/18 23:40 Hyaline Casts 4 /lpf 01/14/18 23:40 Urine Mucus Many 01/14/18 23:40 RPR Titer Nonreactive (NONREACTIVE) 01/15/18 07:00 lab noted Assessment: 01/17/18 09:02 mild withdrawal sx hypokalemia Plan: medically supervised detox continue potassium supplement bid e sent to pharmacy
[2018-01-17] MEDS: PRENATAL VITAMINS W/ FOLIC ACID TABLET (FP) PO SCH (10:37)
[2018-01-17] MEDS: POTASSIUM CHLORIDE ORAL LIQUID 20 MEQ/15 ML PO SCH ×2 (10:37→22:39)
[2018-01-17] MEDS: NICOTINE 14 MG/24 HOURS TOPICAL PATCH TD SCH (10:40)
[2018-01-17] MEDS: THIAMINE HCL 100 MG TABLET (FP) PO SCH (22:38)
[2018-01-17] MEDS: chlordiazePOXIDE HCL 10 MG CAPSULE PO SCH (22:39)
[2018-01-17] MEDS: ZOLPIDEM TARTRATE 5 MG TABLET PO PRN (22:39)
[2018-01-17] MEDS: NICOTINE POLACRILEX 2 MG GUM BC PRN (22:40)
[2018-01-18 06:42] VITALS: BP 93/55; PULSE 89; TEMP 97.9
[2018-01-18] MEDS: CYCLOBENZAPRINE HCL 5 MG TABLET PO SCH (06:55)
[2018-01-18] MEDS: chlordiazePOXIDE HCL 10 MG CAPSULE PO SCH (06:58)
--- NOTE | 2018-01-18 09:10 | DS ---
[facility] Detox Discharge Summary Admission Date: 01/14/18 Discharge Date: 01/18/18 - History Present History: Alcohol Dependence - Physical Exam Results Vital Signs: Vital Signs Temperature 97.9 F 01/18/18 06:42 Pulse Rate 89 01/18/18 06:42 Respiratory Rate 16 01/18/18 06:42 Blood Pressure 93/55 01/18/18 06:42 O2 Sat by Pulse Oximetry (%) - Treatment Hospital Course: Detox Protocol Followed, Detoxed Safely, Responded well, Discharged Condition Good - Medication Discharge Medications: Ambulatory Orders Famotidine [Pepcid -] 20 mg PO BID #14 tablet 09/16/17 Mag Hydrox/Al Hydrox/Simeth [MAALOX *SUSPENSION* -] 30 ml PO Q6H #1 bottle 09/16 Ondansetron [Zofran Odt -] 4 mg SL TID PRN #10 od.tablet 09/16/17 Potassium Chloride [Potassium Chloride Oral Liquid] 20 meq PO BID #60 cup - Diagnosis (1) Acute low back pain with left-sided sciatica Current Visit: Yes Status: Acute Qualifiers: Back pain laterality: left Qualified Code(s): M54.42 - Lumbago with sciatica, left side (2) Alcohol dependence with uncomplicated withdrawal Current Visit: Yes Status: Chronic (3) Dehydration Current Visit: Yes Status: Acute (4) Nicotine dependence Current Visit: Yes Status: Chronic Qualifiers: Nicotine product type: cigarettes (5) Alcoholic gastritis Current Visit: No Status: Acute Qualifiers: Chronicity: acute Gastritis bleeding: without bleeding Qualified Code(s) : K29.20 - Alcoholic gastritis without bleeding - AMA Did Patient Leave Against Medical Advice: No
== END 2018-01-18 09:12 | disposition home or self-care (01) | DRG 775 ==
LOC: YASAS 18:08 → Y6N 19:34
PROVIDERS: ADMIT Internal Medicine; ATTEND Internal Medicine
PROC: HZ2ZZZZ Detoxification Services for Substance Abuse Treatment (ICD-10-PCS; principal; 2018-01-14)
DX: F10.230 Alcohol dependence with withdrawal, uncomplicated (principal); F17.210 Nicotine dependence, cigarettes, uncomplicated; E86.0 Dehydration; K08.9 Disorder of teeth and supporting structures, unspecified; K29.20 Alcoholic gastritis without bleeding; K21.9 Gastro-esophageal reflux disease without esophagitis; M54.42 Lumbago with sciatica, left side; E87.6 Hypokalemia; G47.00 Insomnia, unspecified; R11.2 Nausea with vomiting, unspecified
CPT/HCPCS: 36415; 80053; 81003; 81015; 84132; 85027; 86593; 93005; 93010

== ENCOUNTER 2018-06-10 12:17 | Emergency (ER) | payer OTHER ==
[2018-06-10 12:28] VITALS: BMI 25.8
--- NOTE | 2018-06-10 13:19 | PDOC ---
Attending Attestation - Resident Resident Name: Jaxon Vega - ED Attending Attestation I have performed the following: I have examined & evaluated the patient, The case was reviewed & discussed with the resident, I agree w/resident's findings & plan, Exceptions are as noted - HPI HPI: 06/10/18 13:19 42y F presenting for intractable vomiting, and epigastric pain pt had bottle bourbon today, was seen in [facility] earlier today and discharge
[2018-06-10] MEDS ORDERED: THIAMINE HCL 200 MG/2 ML VIAL IVPB ONE (13:34)
[2018-06-10] MEDS ORDERED: SODIUM CHLORIDE 0.9% 500 ML INFUS.BAG IV ONE (13:34)
[2018-06-10] MEDS ORDERED: PANTOPRAZOLE SODIUM 40 MG VIAL IVPUSH ONE (13:43)
[2018-06-10] MEDS ORDERED: ONDANSETRON 4 MG/2 ML VIAL IVPUSH ONE (13:43)
[2018-06-10] MEDS ORDERED: FOLIC ACID INJECTION - 1 MG, THIAMINE HCL 100 MG, MULTIVIT INJECTION ADULT 10 ML in SOD... IVPB ONE (13:43)
[2018-06-10] MEDS ORDERED: ONDANSETRON 4 MG/2 ML VIAL ONE (13:50)
[2018-06-10] MEDS ORDERED: PANTOPRAZOLE SODIUM 40 MG VIAL ONE (13:51)
[2018-06-10 13:52] LABS: HEMATOCRIT 41.5 % (32.4-45.2); HEMOGLOBIN 14.3 GM/dL (10.7-15.3); MCH 34.4 pg (25.7-33.7); MCHC 34.4 g/dl (32.0-36.0); MEAN CELL VOLUME 100.2 fl (80-96); MEAN PLT VOLUME 10.3 fl (7.5-11.1); PLATELET COUNT 213 K/MM3 (134-434); RBC 4.15 M/mm3 (3.60-5.2); RDW 14.8 % (11.6-15.6); WHITE BLOOD COUNT 7.2 K/mm3 (4.0-10.0)
[2018-06-10 14:25] LABS: ALBUMIN 4.2 g/dl (3.4-5.0); ANION GAP 12 (8-16); BILIRUBIN,TOTAL 1.2 mg/dL (0.2-1.0); BLOOD UREA NITROGEN 9 mg/dL (7-18); CALCIUM 9.8 mg/dL (8.5-10.1); CHLORIDE 92 mmol/L (98-107); CO2 33 mmol/L (21-32); GLUCOSE,RANDOM 132 mg/dL (74-106); SGPT/ALT 41 U/L (12-78); SODIUM 137 mmol/L (136-145)
[2018-06-10 14:26] LABS: ALK PHOS 82 U/L (45-117); TOT PROT 8.3 g/dl (6.4-8.2)
[2018-06-10 14:27] LABS: POTASSIUM 4.1 mmol/L (3.5-5.1); SGOT/AST 59 U/L (15-37)
[2018-06-10 14:34] LABS: LIPASE 84 U/L (73-393)
--- NOTE | 2018-06-10 14:52 | PDOC ---
History of Present Illness - General Chief Complaint: Nausea/Vomiting Stated Complaint: VOMITING Time Seen by Provider: 06/10/18 13:01 Past History - Past Medical History Allergies/Adverse Reactions: Allergies Allergy/AdvReac Type Severity Reaction Status Date / Time No Known Allergies Allergy Verified 06/10/18 13:03 Anemia: No Asthma: No Cancer: No Cardiac Disorders: No CVA: No COPD: No CHF: No Dementia: No Diabetes: No GI Disorders: No Disorders: No HTN: No Hypercholesterolemia: No Kidney Stones: No Liver Disease: No Seizures: No Thyroid Disease: No - Surgical History Abdominal Surgery: No Appendectomy: No Cardiac Surgery: No Cholecystectomy: No Lung Surgery: No Neurologic Surgery: No Orthopedic Surgery: No - Reproductive History PID: No - Immunization History Immunization Up to Date: Yes - Suicide/Smoking/Psychosocial Hx Smoking Status: Yes Smoking History: Current every day smoker Have you smoked in the past 12 months: Yes Number of Cigarettes Smoked Daily: 10 Information on smoking cessation initiated: No 'Breaking Loose' booklet given: 01/14/18 Hx Alcohol Use: Yes Drug/Substance Use Hx: Yes Substance Use Type: Alcohol Hx Substance Use Treatment: Yes ([facility] April 2016) *Physical Exam - Vital Signs Last Vital Signs Temp Pulse Resp BP Pulse Ox 100.1 F H 94 H 20 126/79 99 06/10/18 12:23 06/10/18 12:23 06/10/18 12:23 06/10/18 12:23 06/10/18 12:23 ED Treatment Course - LABORATORY CBC & Chemistry Diagram: 06/10/18 13:44 06/10/18 13:30 - ADDITIONAL ORDERS Additional order review: Laboratory Results 06/10/18 13:30 Sodium 137 Potassium 4.1 Chloride 92 L Carbon Dioxide 33 H Anion Gap 12 BUN 9 Creatinine 1.0 Creat Clearance w eGFR > 60 Random Glucose 132 H Calcium 9.8 Total Bilirubin 1.2 H AST 59 H ALT 41 Alkaline Phosphatase 82 Total Protein 8.3 H Albumin 4.2 Lipase 84 06/10/18 13:44 RBC 4.15 MCV 100.2 H MCHC 34.4 RDW 14.8 MPV 10.3 - Medications Given in the ED: ED Medications Discontinued Medications Generic Name Dose Route Start Last Admin Trade Name Freq PRN Reason Stop Dose Admin Ondansetron HCl 4 mg 06/10/18 13:43 06/10/18 13:53 Zofran Injection IVPUSH 06/10/18 13:44 4 mg ONCE ONE Administration Pantoprazole Sodium 40 mg 06/10/18 13:43 06/10/18 13:53 Protonix Iv IVPUSH 06/10/18 13:44 40 mg ONCE ONE Administration Sodium Chloride 1,000 ml 06/10/18 13:34 06/10/18 14:18 Normal Saline - IV 06/10/18 13:35 Not Given ONCE ONE Thiamine HCl 200 mg 06/10/18 13:34 06/10/18 14:19 Vitamin B1 Injection - IVPB 06/10/18 13:35 Not Given ONCE ONE Medical Decision Making - Medical Decision Making The patient is a 42F with a history of EtOH and nicotine abuse who presents for intractable N/V s/p 1 pint of Nancy. She was seen at [facility] this morning at 0600, states she was given a 'shot' and discharged some time later; however, her N/V has been persistence and thus came for evaluation. Ddx: alcoholic gastritis, acute alcohol intoxication, _ ED Course CMP, CBC, Lipase Banana bag for rehydration Zofran 4mg IV once for nausea 06/10/2018 14:00 Patient reports mild symptomatic improvement, but continues to be nauseated 06/10/18 14:40 Patient re-evaluated, nausea improved and reports feeling thirsty. Endorses mild FLORES at this time. Tylenol 975mg PO once Will PO trial and re-evaluate 06/10/18 15:20 Nausea improved, FLORES improved, tolerating PO 06/10/18 15:59 *DC/Admit/Observation/Transfer Diagnosis at time of Disposition: Alcoholic gastritis Qualifiers: Chronicity: acute Gastritis bleeding: presence of bleeding unspecified Qualified Code(s): K29.20 - Alcoholic gastritis without bleeding - Discharge Dispostion Disposition: HOME Condition at time of disposition: Improved Decision to Admit order: No - Referrals Referrals: [facility] [place] [facility] [place] [Outside] [facility] [Outside] - Patient Instructions Printed Discharge Instructions: DI for Alcohol Abuse, DI for Vomiting -- Adult Additional Instructions: You were seen in the Emergency Department today for nausea and vomiting which is likely due to alcoholic gastritis. Please review the handouts provided at discharge. You were also given referrals to your primary care group and to [facility]. Please follow up with your primary care provider within the next 1-3 days. Return to the Emergency Department if you develops fevers, have worsening symptoms, or if you have new concerning symptoms. - Post Discharge Activity
[2018-06-10] MEDS ORDERED: ACETAMINOPHEN 325 MG TABLET (FP) PO ONE (15:16)
[2018-06-10] MEDS ORDERED: ACETAMINOPHEN 325 MG TABLET (FP) ONE (15:35)
[2018-06-10 16:09] VITALS: BP 116/58; PULSE 82; TEMP 98.9
== END 2018-06-10 16:14 | disposition home or self-care (01) ==
LOC: JER 12:17
PROC: 3E033GC Introduction of Other Therapeutic Substance into Peripheral Vein, Percutaneous Approach (ICD-10-PCS; principal; 2018-06-10)
PROC: 3E033GC Introduction of Other Therapeutic Substance into Peripheral Vein, Percutaneous Approach (ICD-10-PCS; 2018-06-10)
PROC: 3E033GC Introduction of Other Therapeutic Substance into Peripheral Vein, Percutaneous Approach (ICD-10-PCS; 2018-06-10)
DX: K29.20 Alcoholic gastritis without bleeding (principal)
CPT/HCPCS: 36415; 80053; 83690; 85027; 96365; 96366; 96375; 99283-25; J7030

== ENCOUNTER 2018-07-28 20:47 | Inpatient (IN) | payer OTHER ==
[2018-07-28 21:16] VITALS: BMI 23.8
[2018-07-28] MEDS ORDERED: MELATONIN 5 MG TABLETS PO PRN (22:00)
--- NOTE | 2018-07-28 22:03 | HP ---
CIWA Score - CIWA Score Nausea/Vomitin Muscle Tremors: 4-Moderate,w/Arms Extend Anxiety: 3 Agitation: 0-Normal Activity Paroxysmal Sweats: 1-Minimal Palms Moist Orientation: 0-Oriented Tacttile Disturbances: 0-None Auditory Disturbances: 0-None Visual Disturbances: 0-None Headache: 3-Moderate CIWA-Ar Total Score: 16 Admission ROS BHS - HPI Chief Complaint: Alcohol withdrawal symptoms Allergies/Adverse Reactions: Allergies Allergy/AdvReac Type Severity Reaction Status Date / Time No Known Allergies Allergy Verified 07/28/18 17:20 History of Present Illness: 42 years old female with a long history of alcohol dependence is seeking admission to detox. Patient has been to previous detox and reports 11 months of sobriety. She has medical history of nausea, vomiting and low back pain. Patient denies suicidal ideation at this time Exam Limitations: No Limitations - Ebola screening Have you traveled outside of the country in the last 21 days: No Have you had contact with anyone from an Ebola affected area: No Have you been sick,other than usual withdrawal symptoms: No Do you have a fever: No - Review of Systems Constitutional: Chills, Loss of Appetite, Malaise, Night Sweats, Changes in sleep EENT: reports: Nose Congestion Respiratory: reports: No Symptoms reported Cardiac: reports: No Symptoms Reported GI: reports: Poor Appetite, Poor Fluid Intake, Vomiting, Abdominal cramping : reports: No Symptoms Reported Musculoskeletal: reports: Back Pain, Muscle Pain Integumentary: reports: Dryness Neuro: reports: Tremors Endocrine: reports: No Symptoms Reported Hematology: reports: No Symptoms Reported Psychiatric: reports: Mood/Affect Appropiate, Orientated x3, Anxious Other Systems: Reviewed and Negative Patient History - Patient Medical History Hx Anemia: No Hx Asthma: No Hx Chronic Obstructive Pulmonary Disease (COPD): No Hx Cancer: No Hx Cardiac Disorders: No Hx Congestive Heart Failure: No Hx Hypertension: No Hx Hypercholesterolemia: No Hx Pacemaker: No HX Cerebrovascular Accident: No Hx Seizures: No Hx Dementia: No Hx Diabetes: No Hx Gastrointestinal Disorders: No Hx Liver Disease: No Hx Genitourinary Disorders: No Hx Sexually Transmitted Disorders: No Hx Renal Disease (ESRD): No Hx Thyroid Disease: No Hx Human Immunodeficiency Virus (HIV): No (Negative October 2017) Hx Hepatitis C: No Hx Depression: Yes Hx Suicide Attempt: No (Denies suicidal ideation at this time) Hx Bipolar Disorder: No Hx Schizophrenia: No - Patient Surgical History Past Surgical History: No Hx Neurologic Surgery: No Hx Cataract Extraction: No Hx Cardiac Surgery: No Hx Lung Surgery: No Hx Breast Surgery: No Hx Breast Biopsy: No Hx Abdominal Surgery: No Hx Appendectomy: No Hx Cholecystectomy: No Hx Genitourinary Surgery: No Hx Section: No Hx Orthopedic Surgery: No Hx Hysterectomy: No Anesthesia Reaction: No - PPD History Previous Implant?: No Implanted On Prior [facility] Admission?: Yes Date: 01/16/18 PPD to be Administered?: No - Reproductive History Patient is a Female of Child Bearing Age (11 -55 yrs old): Yes Last Menstrual Period: 06/14/18 Patient : No - Smoking Cessation Smoking history: Current every day smoker Have you smoked in the past 12 months: Yes Aproximately how many cigarettes per day: 10 If you are a former smoker, when did you quit?: 0 Hx Chewing Tobacco Use: No Initiated information on smoking cessation: Yes 'Breaking Loose' booklet given: 07/28/18 - Substance & Tx. History Hx Alcohol Use: Yes Hx Substance Use: No Substance Use Type: Alcohol Hx Substance Use Treatment: Yes ([facility]) - Substances Abused Alcohol Route: Oral Frequency: Daily Amount used: LIQUOR- 1 PINT Age of first use: 15 Date of Last Use: 07/28/18 Family Disease History - Family Disease History Family Disease History: Heart Disease: Mother (HTN,ALCOHOL), CA: Grandparent ( BRAIN), Father (ALCOHOL,LUNG), Other: Father, Mother Admission Physical Exam [facility] - Vital Signs Vital Signs: Vital Signs - 24 hr 07/28/18 21:14 Temperature 99.0 F Pulse Rate 86 Respiratory 19 Rate Blood Pressure 138/83 - Physical General Appearance: Yes: Moderate Distress HEENTM: Yes: EOMI, Normal ENT Inspection, Normocephalic, Normal Voice Respiratory: Yes: Lungs Clear, Normal Breath Sounds, No Respiratory Distress Neck: Yes: Supple Breast: Yes: Breast Exam Deferred Cardiology: Yes: Regular Rhythm, Regular Rate Abdominal: Yes: Normal Bowel Sounds, Soft Genitourinary: Yes: Within Normal Limits Back: Yes: Normal Inspection Musculoskeletal: Yes: Within Normal Limits Extremities: Yes: Tremors Neurological: Yes: glass bender II-XII NML intact, Alert, Normal Mood/Affect Integumentary: Yes: Warm Lymphatic: Yes: Within Normal Limits - Diagnostic (1) Dehydration Current Visit: Yes Status: Chronic (2) Nausea & vomiting Current Visit: Yes Status: Chronic Qualifiers: Vomiting type: unspecified Vomiting Intractability: non-intractable Qualified Code(s): R11.2 - Nausea with vomiting, unspecified (3) Alcohol dependence with uncomplicated withdrawal Current Visit: Yes Status: Chronic (4) Nicotine dependence Current Visit: Yes Status: Chronic Qualifiers: Nicotine product type: cigarettes Cleared for Admission [facility] - Detox or Rehab [facility] Level of Care: Medically Managed Detox Regimen/Protocol: Librium [facility] Breath Alcohol Content Breath Alcohol Content: 0 Urine Pregancy Test - Result Urine Test Results: Negative- NO Line Present Urine Drug Screen - Results Drug Screen Negative: Yes
[2018-07-28] MEDS ORDERED: MAGNESIUM HYDROX 2400MG/30ML ORAL SUSPENSION 30 ML CUP PO PRN (22:13)
[2018-07-28] MEDS ORDERED: NICOTINE POLACRILEX 2 MG GUM BC PRN (22:13)
[2018-07-28] MEDS ORDERED: P-EPHED 60MG/TRIPROLIDI 2.5MG TABLET PO PRN (22:13)
[2018-07-28] MEDS ORDERED: guaiFENesin/D-METHORPHAN HB 10 ML UNIT-DOSE CUPS PO PRN (22:13)
[2018-07-28] MEDS ORDERED: MAG HYDROX/AL HYDROX/SIMETH 30 ML UNIT-DOSE CUP PO PRN (22:13)
[2018-07-28] MEDS ORDERED: MAGNESIUM CITRATE 300 ML BOTTLE PO PRN (22:13)
[2018-07-28] MEDS ORDERED: MENTHOL/PHENOL 1 EACH UD MM PRN (22:13)
[2018-07-28] MEDS ORDERED: chlordiazePOXIDE HCL 25 MG CAPSULE PO PRN (22:13)
[2018-07-28] MEDS ORDERED: ACETAMINOPHEN 325 MG TABLET (FP) PO PRN (22:13)
[2018-07-28] MEDS ORDERED: LOPERAMIDE HCL 2 MG CAPSULE PO PRN (22:13)
[2018-07-28] MEDS ORDERED: IBUPROFEN 400 MG TABLET (FP) PO PRN (22:13)
[2018-07-28] MEDS: chlordiazePOXIDE HCL 25 MG CAPSULE PO SCH (23:31)
[2018-07-29] MEDS ORDERED: TRIMETHOBENZAMIDE HCL 200MG/2ML INJ IM ONE (04:13)
--- NOTE | 2018-07-29 04:15 | PN ---
S Progress Note Note: Patient vomited x 1 Vital Signs Temperature 99.5 F 07/28/18 23:32 Pulse Rate 95 H 07/28/18 23:32 Respiratory Rate 18 07/28/18 23:32 Blood Pressure 147/86 07/28/18 23:32 O2 Sat by Pulse Oximetry (%) Action: Tigan 200mg IM ordered
[2018-07-29] MEDS: chlordiazePOXIDE HCL 25 MG CAPSULE PO SCH ×4 (07:15→22:34)
--- NOTE | 2018-07-29 09:14 | CONSULT ---
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 Patient has been to previous detox and reports 11 months of sobriety. Substance Abuse History: - Smoking Cessation. Smoking history: Current every day smoker. Have you smoked in the past 12 months: Yes. Aproximately how many cigarettes per day: 10. If you are a former smoker, when did you quit?: 0. Hx Chewing Tobacco Use: No. Initiated information on smoking cessation: Yes. ' Breaking Loose' booklet given: 07/28/18. - Substance & Tx. History. Hx Alcohol Use: Yes. Hx Substance Use: No. Substance Use Type: Alcohol. Hx Substance Use Treatment: Yes ([facility]). - Substances Abused. Alcohol. Route: Oral. Frequency: Daily. Amount used: LIQUOR- 1 PINT. Age of first use: 15. Date of Last Use: 07/28/18 Medical History: Denies significant medical issues Psychiatric History: Denies history of psychiatric hospitalizations, no psychiatric medications usage prior to admission Physical/Sexual Abuse/Trauma History: Denies Additional Comment: Observation. Detox Unit Care Protocol Mental Status Exam - Mental Status Exam Alert and Oriented to: Person Cognitive Function: Fair Patient Appearance: Unkempt Mood: Sad Affect: Mood Congruent Patient Behavior: Cooperative Speech Pattern: Appropriate Voice Loudness: Normal Thought Process: Goal Oriented Thought Disorder: Being Controlled Hallucinations: Denies Suicidal Ideation: Denies Homicidal Ideation: Denies Insight/Judgement: Fair Sleep: Difficulty falling asleep Appetite: Fair Muscle strength/Tone: Normal Gait/Station: Shuffling Additional Comments: Observation. Detox Unit Care Protocol Psychiatric Findings - Problem List ([place] 1, 2,3) (1) Alcohol abuse Current Visit: No Status: Acute (2) Alcohol dependence with uncomplicated withdrawal Current Visit: Yes Status: Chronic (3) Nicotine dependence Current Visit: Yes Status: Chronic Qualifiers: Nicotine product type: cigarettes (4) Alcoholic gastritis Current Visit: No Status: Acute Qualifiers: Chronicity: acute Gastritis bleeding: presence of bleeding unspecified Qualified Code(s): K29.20 - Alcoholic gastritis without bleeding (5) Hypomagnesemia Current Visit: No Status: Acute (6) Lactic acidosis Current Visit: No Status: Acute - Initial Treatment Plan Initial Treatment Plan: Observation. Detox Unit Care Protocol
--- NOTE | 2018-07-29 10:01 | EKG ---
Test Reason : Blood Pressure : / mmHG Vent. Rate : 086 BPM Atrial Rate : 086 BPM P-R Int : 118 ms QRS Dur : 074 ms QT Int : 356 ms P-R-T Axes : 019 048 037 degrees QTc Int : 426 ms NORMAL SINUS RHYTHM NORMAL ECG WHEN COMPARED WITH ECG OF 14-JAN-2018 22:41, NO SIGNIFICANT CHANGE WAS FOUND Confirmed by ROSA HOSKINS MD ([id number]) on 07/29/2018 10:01:30 AM Referred By: Confirmed By:ROSA HOSKINS MD
[2018-07-29 10:31] LABS: HEMATOCRIT 39.4 % (32.4-45.2); HEMOGLOBIN 13.1 GM/dL (10.7-15.3); MCH 34.3 pg (25.7-33.7); MCHC 33.3 g/dl (32.0-36.0); MEAN CELL VOLUME 103.2 fl (80-96); MEAN PLT VOLUME 9.5 fl (7.5-11.1); PLATELET COUNT 220 K/MM3 (134-434); RBC 3.82 M/mm3 (3.60-5.2); RDW 14.1 % (11.6-15.6); WHITE BLOOD COUNT 4.6 K/mm3 (4.0-10.0)
[2018-07-29 10:33] LABS: URINE APPEARANCE SLCLOUDY; URINE BILIRUBIN NEGATIVE (<2.0 mg/dL); URINE COLOR AMBER; URINE GLUCOSE (UA) NEGATIVE (NEGATIVE); URINE KETONE 1+ (NEGATIVE); URINE LEUK ESTERASE NEGATIVE (NEGATIVE); URINE NITRITE NEGATIVE (NEGATIVE)
[2018-07-29 10:37] LABS: URINE PROTEIN 2+ (NEGATIVE)
[2018-07-29 10:41] LABS: EPI CELLS FEW /HPF (FEW); URINE BACTERIA MODERATE /hpf (NONE SEEN); URINE MUCUS MANY
[2018-07-29] MEDS: PRENATAL VITAMINS W/ FOLIC ACID TABLET (FP) PO SCH (10:45)
[2018-07-29] MEDS: NICOTINE 14 MG/24 HOURS TOPICAL PATCH TD SCH (10:45)
[2018-07-29 11:09] LABS: CHLORIDE 93 mmol/L (98-107); SODIUM 137 mmol/L (136-145)
[2018-07-29 11:52] LABS: ALBUMIN 3.7 g/dl (3.4-5.0); ALK PHOS 72 U/L (45-117); ANION GAP 12 MMOL/L (8-16); BILIRUBIN,TOTAL 1.1 mg/dL (0.2-1.0); BLOOD UREA NITROGEN 4 mg/dL (7-18); CO2 32 mmol/L (21-32); CREATININE 0.6 mg/dL (0.55-1.3); GLUCOSE,RANDOM 91 mg/dL (74-106); SGOT/AST 35 U/L (15-37); SGPT/ALT 24 U/L (13-61); TOT PROT 7.2 g/dl (6.4-8.2)
[2018-07-29] MEDS ORDERED: ONDANSETRON *ODT* 4 MG TABLET SL PRN (16:21)
--- NOTE | 2018-07-29 16:21 | PN ---
S CIWA - CIWA Score Nausea/Vomitin-Mild Nausea/No Vomiting Muscle Tremors: 4-Moderate,w/Arms Extend Anxiety: 3 Agitation: 3 Paroxysmal Sweats: 1-Minimal Palms Moist Orientation: 1-Uncertain about Date Tacttile Disturbances: 1-Very Mild Itch/Numbness Auditory Disturbances: 0-None Visual Disturbances: 0-None Headache: 0-None Present CIWA-Ar Total Score: 14 BHS Progress Note (SOAP) Subjective: sweat tremor anxiety trouble sleep at night Objective: 07/29/18 16:19 Vital Signs Temperature 98.6 F 07/29/18 13:02 Pulse Rate 90 07/29/18 13:02 Respiratory Rate 16 07/29/18 13:02 Blood Pressure 144/93 07/29/18 13:02 O2 Sat by Pulse Oximetry (%) Laboratory Last Values WBC 4.6 K/mm3 (4.0-10.0) 07/29/18 08:00 RBC 3.82 M/mm3 (3.60-5.2) 07/29/18 08:00 Hgb 13.1 GM/dL (10.7-15.3) 07/29/18 08:00 Hct 39.4 % (32.4-45.2) 07/29/18 08:00 MCV 103.2 fl (80-96) H 07/29/18 08:00 MCH 34.3 pg (25.7-33.7) H 07/29/18 08:00 MCHC 33.3 g/dl (32.0-36.0) 07/29/18 08:00 RDW 14.1 % (11.6-15.6) 07/29/18 08:00 Plt Count 220 K/MM3 (134-434) 07/29/18 08:00 MPV 9.5 fl (7.5-11.1) 07/29/18 08:00 Sodium 137 mmol/L (136-145) 07/29/18 08:00 Potassium 3.0 mmol/L (3.5-5.1) L 07/29/18 08:00 Chloride 93 mmol/L (98-107) L 07/29/18 08:00 Carbon Dioxide 32 mmol/L (21-32) 07/29/18 08:00 Anion Gap 12 MMOL/L (8-16) 07/29/18 08:00 BUN 4 mg/dL (7-18) L 07/29/18 08:00 Creatinine 0.6 mg/dL (0.55-1.3) 07/29/18 08:00 Creat Clearance w eGFR > 60 (>60) 07/29/18 08:00 Random Glucose 91 mg/dL (74-106) 07/29/18 08:00 Calcium 9.0 mg/dL (8.5-10.1) 07/29/18 08:00 Total Bilirubin 1.1 mg/dL (0.2-1.0) H 07/29/18 08:00 AST 35 U/L (15-37) 07/29/18 08:00 ALT 24 U/L (13-61) 07/29/18 08:00 Alkaline Phosphatase 72 U/L (45-117) 07/29/18 08:00 Total Protein 7.2 g/dl (6.4-8.2) 07/29/18 08:00 Albumin 3.7 g/dl (3.4-5.0) 07/29/18 08:00 Urine Color Colleen 07/29/18 08:00 Urine Appearance Slcloudy 07/29/18 08:00 Urine pH 7.0 (5.0-8.0) 07/29/18 08:00 Ur Specific [place] 1.026 (1.001-1.035) 07/29/18 08:00 Urine Protein 2+ (NEGATIVE) H 07/29/18 08:00 Urine Glucose (UA) Negative (NEGATIVE) 07/29/18 08:00 Urine Ketones 1+ (NEGATIVE) H 07/29/18 08:00 Urine Blood Negative (NEGATIVE) 07/29/18 08:00 Urine Nitrite Negative (NEGATIVE) 07/29/18 08:00 Urine Bilirubin Negative (<2.0 mg/dL) 07/29/18 08:00 Urine Urobilinogen 2.0 mg/dL (0.2-1.0) H 07/29/18 08:00 Ur Leukocyte Esterase Negative (NEGATIVE) 07/29/18 08:00 Urine WBC (Auto) 3 /hpf (3-5) 07/29/18 08:00 Urine RBC (Auto) 5 /hpf (0-3) 07/29/18 08:00 Ur Epithelial Cells Few /HPF (FEW) 07/29/18 08:00 Urine Bacteria Moderate /hpf (NONE SEEN) 07/29/18 08:00 Urine Mucus Many 07/29/18 08:00 RPR Titer Nonreactive (NONREACTIVE) 07/29/18 08:00 low K+ lab noted 07/29/18 16:20 Assessment: 07/29/18 16:20 withdrawal sx 07/29/18 16:20 low K+ Plan: continue deto potassium supplement repeat K+
[2018-07-29] MEDS: POTASSIUM CHLORIDE TABS 20 MEQ TABLET.ER (FP) PO SCH (18:08)
[2018-07-29] MEDS ORDERED: THIAMINE HCL 100 MG TABLET (FP) PO SCH (22:00)
[2018-07-30] MEDS: chlordiazePOXIDE HCL 25 MG CAPSULE PO SCH ×2 (07:46→11:37)
[2018-07-30] MEDS: POTASSIUM CHLORIDE TABS 20 MEQ TABLET.ER (FP) PO SCH (11:50)
[2018-07-30] MEDS: PRENATAL VITAMINS W/ FOLIC ACID TABLET (FP) PO SCH (11:50)
[2018-07-30] MEDS: NICOTINE 14 MG/24 HOURS TOPICAL PATCH TD SCH (11:50)
--- NOTE | 2018-07-30 13:53 | DS ---
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 for alcohol withdrawal patient stated no valium necessary due to mild alcohol withdrawal sx denies seizure denies DT patient had not take the advantage of librium detox regimen refused valium replacement patient is alert oriented x 3 no acute distress agrees to follow up with potassium supplement Pertinent Past History: 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 encourage the patient to attend community self help groups or attend meetings for sobriety discussed that alcohol withdrawal is real and is due to alcohol misue, proper treatment and support are needed for sobriety - Physical Exam Results Vital Signs: Vital Signs Temperature 98.1 F 07/30/18 10:11 Pulse Rate 104 H 07/30/18 10:11 Respiratory Rate 20 07/30/18 10:11 Blood Pressure 133/90 07/30/18 10:11 O2 Sat by Pulse Oximetry (%) Pertinent Admission Physical Exam Findings: alcohol withdrawal sx Vital Signs Temperature 98.1 F 07/30/18 10:11 Pulse Rate 104 H 07/30/18 10:11 Respiratory Rate 20 07/30/18 10:11 Blood Pressure 133/90 07/30/18 10:11 O2 Sat by Pulse Oximetry (%) Laboratory Last Values WBC 4.6 K/mm3 (4.0-10.0) 07/29/18 08:00 RBC 3.82 M/mm3 (3.60-5.2) 07/29/18 08:00 Hgb 13.1 GM/dL (10.7-15.3) 07/29/18 08:00 Hct 39.4 % (32.4-45.2) 07/29/18 08:00 MCV 103.2 fl (80-96) H 07/29/18 08:00 MCH 34.3 pg (25.7-33.7) H 07/29/18 08:00 MCHC 33.3 g/dl (32.0-36.0) 07/29/18 08:00 RDW 14.1 % (11.6-15.6) 07/29/18 08:00 Plt Count 220 K/MM3 (134-434) 07/29/18 08:00 MPV 9.5 fl (7.5-11.1) 07/29/18 08:00 Sodium 137 mmol/L (136-145) 07/29/18 08:00 Potassium 3.0 mmol/L (3.5-5.1) L 07/29/18 08:00 Chloride 93 mmol/L (98-107) L 07/29/18 08:00 Carbon Dioxide 32 mmol/L (21-32) 07/29/18 08:00 Anion Gap 12 MMOL/L (8-16) 07/29/18 08:00 BUN 4 mg/dL (7-18) L 07/29/18 08:00 Creatinine 0.6 mg/dL (0.55-1.3) 07/29/18 08:00 Creat Clearance w eGFR > 60 (>60) 07/29/18 08:00 Random Glucose 91 mg/dL (74-106) 07/29/18 08:00 Calcium 9.0 mg/dL (8.5-10.1) 07/29/18 08:00 Total Bilirubin 1.1 mg/dL (0.2-1.0) H 07/29/18 08:00 AST 35 U/L (15-37) 07/29/18 08:00 ALT 24 U/L (13-61) 07/29/18 08:00 Alkaline Phosphatase 72 U/L (45-117) 07/29/18 08:00 Total Protein 7.2 g/dl (6.4-8.2) 07/29/18 08:00 Albumin 3.7 g/dl (3.4-5.0) 07/29/18 08:00 Urine Color Colleen 07/29/18 08:00 Urine Appearance Slcloudy 07/29/18 08:00 Urine pH 7.0 (5.0-8.0) 07/29/18 08:00 Ur Specific [place] 1.026 (1.001-1.035) 07/29/18 08:00 Urine Protein 2+ (NEGATIVE) H 07/29/18 08:00 Urine Glucose (UA) Negative (NEGATIVE) 07/29/18 08:00 Urine Ketones 1+ (NEGATIVE) H 07/29/18 08:00 Urine Blood Negative (NEGATIVE) 07/29/18 08:00 Urine Nitrite Negative (NEGATIVE) 07/29/18 08:00 Urine Bilirubin Negative (<2.0 mg/dL) 07/29/18 08:00 Urine Urobilinogen 2.0 mg/dL (0.2-1.0) H 07/29/18 08:00 Ur Leukocyte Esterase Negative (NEGATIVE) 07/29/18 08:00 Urine WBC (Auto) 3 /hpf (3-5) 07/29/18 08:00 Urine RBC (Auto) 5 /hpf (0-3) 07/29/18 08:00 Ur Epithelial Cells Few /HPF (FEW) 07/29/18 08:00 Urine Bacteria Moderate /hpf (NONE SEEN) 07/29/18 08:00 Urine Mucus Many 07/29/18 08:00 RPR Titer Nonreactive (NONREACTIVE) 07/29/18 08:00 lab noted discuss adherence with K+ follow up level with primary care provider - Treatment Hospital Course: Detoxed Safely, Responded well, Discharged Condition Good, Rehab Referral Accepted Patient has Accepted a Rehab Referral to: as per counselor arranged - Medication Discharge Medications: Ambulatory Orders Potassium Chloride [K-Dur -] 40 meq PO DAILY #10 tablet.er 07/30/18 - Diagnosis (1) Alcohol dependence with uncomplicated withdrawal Current Visit: Yes Status: Acute (2) Nicotine dependence Current Visit: Yes Status: Acute Qualifiers: Nicotine product type: cigarettes Substance use status: in withdrawal Qualified Code(s): F17.213 - Nicotine dependence, cigarettes, with withdrawal - AMA Did Patient Leave Against Medical Advice: No
[2018-07-30 14:04] VITALS: BP 125/89; PULSE 109; TEMP 97.9
[2018-07-30] MEDS ORDERED: chlordiazePOXIDE 5 MG CAPSULE PO SCH (23:00)
[2018-07-31] MEDS ORDERED: chlordiazePOXIDE HCL 10 MG CAPSULE PO SCH (23:00)
== END 2018-07-30 14:46 | disposition home or self-care (01) | DRG 775 ==
LOC: YASAS 20:47 → Y6N 22:59
PROC: HZ2ZZZZ Detoxification Services for Substance Abuse Treatment (ICD-10-PCS; principal; 2018-07-28)
DX: F10.230 Alcohol dependence with withdrawal, uncomplicated (principal); F17.213 Nicotine dependence, cigarettes, with withdrawal; K29.20 Alcoholic gastritis without bleeding; E83.42 Hypomagnesemia; E87.2 Acidosis; E86.0 Dehydration; R11.2 Nausea with vomiting, unspecified; M54.5 Low back pain
CPT/HCPCS: 36415; 80053; 81003; 81015; 85027; 86593; 93005; 93010

== ENCOUNTER → 2018-07-28 | Emergency (ER) | payer OTHER ==
[~2018-07-28] MED LIST: FOLIC ACID INJECTION - 1 MG, THIAMINE HCL 100 MG, MULTIVIT INJECTION ADULT 10 ML in SOD... IVPB ONE; ONDANSETRON 4 MG/2 ML VIAL IVPUSH ONE; ONDANSETRON 4 MG/2 ML VIAL ONE
--- NOTE | 2018-07-28 17:31 | PDOC ---
History of Present Illness <Priti Shane - Last Filed: 07/28/18 20:05> - History of Present Illness Initial Comments: 07/28/18 17:31 Pt is a 42 y/o F with a past medical history of alcoholism presents to [facility] c/ o intractable vomiting since yesterday evening. Pt endorses consuming 2 pints of Nancy since yesterday evening. Pt was previously in our ED in May of this year for the same problem. Endorses that two of her sons are incarcerated and this has exacerbated her alcoholism. Denies fevers, chills, changes in vision, chest pain, shortness of breath, or dizziness. Also c/o pinky pain her her right hand. NKDA FH- Father(Lung cancer, alcoholism), Mom(Alcoholism) Social Hx- smokes 1 pack Devin Cig/Day, Chronic alcohol use <Fareed Frausto - Last Filed: 07/28/18 20:34> - General Chief Complaint: Alcohol intoxication Stated Complaint: ABDOMINAL PAIN Time Seen by Provider: 07/28/18 17:11 Past History <Priti Shane - Last Filed: 07/28/18 20:05> - Past Medical History Anemia: No Asthma: No Cancer: No Cardiac Disorders: No CVA: No COPD: No CHF: No Dementia: No Diabetes: No GI Disorders: No Disorders: No HTN: No Hypercholesterolemia: No Kidney Stones: No Liver Disease: No Seizures: No Thyroid Disease: No - Surgical History Abdominal Surgery: No Appendectomy: No Cardiac Surgery: No Cholecystectomy: No Lung Surgery: No Neurologic Surgery: No Orthopedic Surgery: No - Reproductive History PID: No - Immunization History Immunization Up to Date: Yes - Suicide/Smoking/Psychosocial Hx Smoking Status: Yes Smoking History: Current every day smoker Have you smoked in the past 12 months: Yes Number of Cigarettes Smoked Daily: 10 If you are a former smoker, when did you quit?: 0 Information on smoking cessation initiated: No 'Breaking Loose' booklet given: 01/14/18 Hx Alcohol Use: Yes Drug/Substance Use Hx: No Substance Use Type: Alcohol Hx Substance Use Treatment: Yes ([facility] April 2016) <Fareed Frausto - Last Filed: 07/28/18 20:34> - Past Medical History Allergies/Adverse Reactions: Allergies Allergy/AdvReac Type Severity Reaction Status Date / Time No Known Allergies Allergy Verified 07/28/18 17:20 Home Medications: Ambulatory Orders NK [No Known Home Medication] 07/28/18 Review of Systems - Review of Systems Able to Perform ROS?: Yes Is the patient limited Solomon Islander proficient: No ABD/GI: Yes: Nausea, Vomiting <Fareed Frausto - Last Filed: 07/28/18 20:34> *Physical Exam - Vital Signs Last Vital Signs Temp Pulse Resp BP Pulse Ox 98 F 103 H 20 127/82 97 07/28/18 17:20 07/28/18 17:20 07/28/18 17:20 07/28/18 17:20 07/28/18 19:31 <Priti Shane - Last Filed: 07/28/18 20:05> - Vital Signs Last Vital Signs Temp Pulse Resp BP Pulse Ox 98 F 103 H 20 127/82 98 07/28/18 17:20 07/28/18 17:20 07/28/18 17:20 07/28/18 17:20 07/28/18 17:20 - Physical Exam Comments: GENERAL: Dry heaving, AAOx3 HEENT- NC/AT, dry mucous membranes. poor dentition. LUNGS: CTA B/L HEART: RRR, No MRG, S1 S2 ABDOMEN: Soft, +mild epigastric ttp, normoactive bowel sounds. No guarding, no rebound. No masses EXTREMITIES: No CCE NEUROLOGICAL: No Neuro deficits appreciated. CN 2-12 intact. SKIN: Warm, Dry, normal turgor, no rashes or lesions noted. <Fareed Frausto - Last Filed: 07/28/18 20:34> ED Treatment Course - LABORATORY CBC & Chemistry Diagram: 07/28/18 17:55 07/28/18 17:35 - ADDITIONAL ORDERS Additional order review: Laboratory Results 07/28/18 07/28/18 17:35 17:35 Sodium 139 Potassium 3.7 Chloride 97 L Carbon Dioxide 27 Anion Gap 15 BUN 6 L Creatinine 0.7 Creat Clearance w eGFR > 60 Random Glucose 106 Calcium 9.0 Total Bilirubin 0.8 AST 52 H ALT 33 Alkaline Phosphatase 76 Total Protein 8.0 Albumin 4.1 Lipase 53 L 07/28/18 17:55 RBC 3.99 MCV 102.6 H MCHC 34.0 RDW 14.3 MPV 8.8 D Neutrophils % 86.2 H D Lymphocytes % 7.0 L D Monocytes % 6.1 Eosinophils % 0.0 Basophils % 0.7 - Medications Given in the ED: ED Medications Discontinued Medications Generic Name Dose Route Start Last Admin Trade Name Davonte PRN Reason Stop Dose Admin Ondansetron HCl 4 mg 07/28/18 17:44 07/28/18 18:26 Zofran Injection IVPUSH 07/28/18 17:45 4 mg ONCE ONE Administration <Priti Shane - Last Filed: 07/28/18 20:05> - LABORATORY CBC & Chemistry Diagram: 07/28/18 17:55 07/28/18 17:35 <Fareed Frausto - Last Filed: 07/28/18 20:34> Medical Decision Making - Medical Decision Making 07/28/18 18:30 Banana bag, CBC, CMP, 4 mg Zofran 07/28/18 20:08 Spoke w/ pt, agrees to detox treat at [facility]. [facility] notified, bed available for pt, pt to be transferred this evening. <Fareed Frausto - Last Filed: 07/28/18 20:34> *DC/Admit/Observation/Transfer - Discharge Dispostion Decision to Admit order: No <Priti Shane - Last Filed: 07/28/18 20:05> <Fareed Frausto - Last Filed: 07/28/18 20:34> Diagnosis at time of Disposition: Alcohol abuse - Discharge Dispostion Disposition: HOME Condition at time of disposition: Stable - Patient Instructions Additional Instructions: YOU WILL BE GOING TO DETOX.
[2018-07-28 17:42] VITALS: BP 127/82; PULSE 103; TEMP 98; BMI 24.9
--- NOTE | 2018-07-28 17:52 | PDOC ---
Attending Attestation - Resident Resident Name: Fareed Frausto - ED Attending Attestation I have performed the following: I have examined & evaluated the patient, The case was reviewed & discussed with the resident, I agree w/resident's findings & plan, Exceptions are as noted - HPI HPI: 07/28/18 17:45 42yo F hx etoh abuse presents to ED with intractable N/V since yesterday. Drank 2 pints of henny since then. Has had similar symptoms in the past, most recently at [facility] less than 2 months ago. Reports her 2 sons are both incarcerated and admits this has led to increased drinking. Denies other sxs of headache, dizziness, tremors, cp, sob, abd pain, weakness/numbness - Physicial Exam PE: 07/28/18 17:52 GENERAL: Awake, alert, loudly dry heaving into basin HEAD: No signs of trauma EYES: PERRLA, EOMI, sclera anicteric ENT: dry MM LUNGS: Breath sounds equal, clear to auscultation bilaterally. No wheezes, and no crackles HEART: Regular rate and rhythm, normal S1 and S2, no murmurs, rubs or gallops ABDOMEN: Soft, +mild epigastric ttp, normoactive bowel sounds. No guarding, no rebound. No masses EXTREMITIES: Normal range of motion, no edema. No clubbing or cyanosis. No cords, erythema, or tenderness NEUROLOGICAL: Normal speech, cranial nerves intact, negative pronator drift, 5/ 5 strength in all 4 extremities, normal sensation to light touch in all 4 extremities, normal cerebellar exam, normal gait, normal reflexes and tone SKIN: Warm, Dry, normal turgor, no rashes or lesions noted. - Medical Decision Making 07/28/18 18:31 42yo F hx etoh abuse presents to the ED with N/V after drinking 2 pints of henny since yesterday. Vitals with mild tachycardia to 102. DDx includes but not limited to etoh gastritis vs pancreatitis. Plan: -labs -banana bag -antiemetics -EKG -reassess 07/28/18 19:00 CBC back with elevatd MCV consistent with macrocytic anemia in alcoholic pt Sxs well controlled with zofran CMP pending Pt signed out to overnight attending for further mgmt/dispo
[2018-07-28 18:34] LABS: BASO % 0.7 % (0-2.0); HEMATOCRIT 40.9 % (32.4-45.2); HEMOGLOBIN 13.9 GM/dL (10.7-15.3); MCH 34.9 pg (25.7-33.7); MEAN CELL VOLUME 102.6 fl (80-96); MEAN PLT VOLUME 8.8 fl (7.5-11.1); MONO % 6.1 % (3.8-10.2); NEUT % 86.2 % (42.8-82.8); PLATELET COUNT 275 K/MM3 (134-434); RBC 3.99 M/mm3 (3.60-5.2); RDW 14.3 % (11.6-15.6); WHITE BLOOD COUNT 8.4 K/mm3 (4.0-10.0)
[2018-07-28 18:58] LABS: ALBUMIN 4.1 g/dl (3.4-5.0); ANION GAP 15 MMOL/L (8-16); BLOOD UREA NITROGEN 6 mg/dL (7-18); CHLORIDE 97 mmol/L (98-107); CO2 27 mmol/L (21-32); CREATININE 0.7 mg/dL (0.55-1.3); GLUCOSE,RANDOM 106 mg/dL (74-106); SGPT/ALT 33 U/L (13-61); SODIUM 139 mmol/L (136-145)
[2018-07-28 19:00] LABS: ALK PHOS 76 U/L (45-117); BILIRUBIN,TOTAL 0.8 mg/dL (0.2-1.0)
[2018-07-28 19:03] LABS: POTASSIUM 3.7 mmol/L (3.5-5.1); SGOT/AST 52 U/L (15-37)
--- NOTE | 2018-07-29 09:59 | EKG ---
Test Reason : Blood Pressure : / mmHG Vent. Rate : 075 BPM Atrial Rate : 075 BPM P-R Int : 100 ms QRS Dur : 082 ms QT Int : 480 ms P-R-T Axes : 000 036 017 degrees QTc Int : 536 ms SINUS RHYTHM WITH SHORT HI PROLONGED QT ABNORMAL ECG WHEN COMPARED WITH ECG OF 14-JAN-2018 22:41, HI INTERVAL HAS DECREASED T WAVE VARIATION Confirmed by ROSA HOSKINS MD ([id number]) on 07/29/2018 9:58:56 AM Referred By: Confirmed By:ROSA HOSKINS MD
== END | disposition home or self-care (01) ==
LOC: JER 17:03
PROC: 3E033GC Introduction of Other Therapeutic Substance into Peripheral Vein, Percutaneous Approach (ICD-10-PCS; principal; 2018-07-28)
DX: F10.10 Alcohol abuse, uncomplicated (principal)
CPT/HCPCS: 36415; 80053; 83690; 85025; 93005; 93010; 96365; 96375; 99285-25; J7030

== ENCOUNTER 2018-12-04 17:22 | Inpatient (IN) | payer OTHER ==
[2018-12-04 17:42] VITALS: BMI 20.1
[2018-12-04] MEDS ORDERED: ONDANSETRON 4 MG/2 ML VIAL IVPUSH ONE (17:51)
[2018-12-04] MEDS ORDERED: DEXTROSE 5%-NORMAL SALINE 1,000 ML IV ONE (17:51)
[2018-12-04] MEDS ORDERED: ONDANSETRON 4 MG/2 ML VIAL ONE (18:10)
--- NOTE | 2018-12-04 18:14 | PDOC ---
History of Present Illness - General Chief Complaint: Nausea/Vomiting Stated Complaint: ABDOMINAL PAIN Time Seen by Provider: 12/04/18 17:46 - History of Present Illness Initial Comments: Nery Levin is a 43yo woman with a history of alcohol abuse who presents reporting vomiting with inability to tolerate PO today after a week-long drinking binge. She states that she had 2 "large bottles" of liquor over the past week. She believes that she probably drank water during that time, but she is not sure, and she denies having anything to eat in the past week. She reports that she often has similar episodes of binge drinking but is unable to say how often. She is unable to report how much she drinks daily. Ms Levin says that her last drink was yesterday. She has been vomiting persistently today and has been unable to eat or drink anything at all. She additionally reported abdominal pain on arrival (triage) but denied it currently. She does admit to frequently having tremors when she stops drinking. She was previously in rehab "a long time ago" for alcohol. She denies any additional substance use other than 1/2 pack per day of cigarettes. Ms Levin states that she does not believe her drinking is problematic for her. Past History - Past Medical History Allergies/Adverse Reactions: Allergies Allergy/AdvReac Type Severity Reaction Status Date / Time No Known Allergies Allergy Verified 12/04/18 18:49 Home Medications: Ambulatory Orders NK [No Known Home Medication] 12/04/18 Anemia: No Asthma: No Cancer: No Cardiac Disorders: No CVA: No COPD: No CHF: No Dementia: No Diabetes: No GI Disorders: No Disorders: No HTN: No Hypercholesterolemia: No Kidney Stones: No Liver Disease: No Seizures: No Thyroid Disease: No - Surgical History Abdominal Surgery: No Appendectomy: No Cardiac Surgery: No Cholecystectomy: No Lung Surgery: No Neurologic Surgery: No Orthopedic Surgery: No - Reproductive History PID: No - Immunization History Immunization Up to Date: Yes - Suicide/Smoking/Psychosocial Hx Smoking Status: Yes Smoking History: Current every day smoker Have you smoked in the past 12 months: Yes Number of Cigarettes Smoked Daily: 10 If you are a former smoker, when did you quit?: 0 Information on smoking cessation initiated: No 'Breaking Loose' booklet given: 07/28/18 Hx Alcohol Use: Yes Drug/Substance Use Hx: No Substance Use Type: Alcohol Hx Substance Use Treatment: Yes ([facility]) Review of Systems - Review of Systems Comments:: General: No fevers, no chills, no weight or appetite change, no malaise HEENT: No changes in vision, no changes in hearing, no congestion, no sore throat CV: No chest pain, no palpitations, no LE edema Pulm: No SOB, no cough, no wheezing GI: +nausea, +vomiting, +chronic constipation : No frequency, no urgency, no dysuria Musc: No back pain, no joint swelling, no recent injury Skin: No rash, no lesions, no erythema Endo: No excessive thirst, no heat/cold intolerance Heme: No unusual bruising or bleeding, no swollen glands Neuro: No syncope, no numbness/tingling, no focal weakness. +shaking Vasc: No claudication Psych: No recent change in mood, no SI or HI, +alcohol abuse *Physical Exam - Vital Signs Last Vital Signs Temp Pulse Resp BP Pulse Ox 98.5 F 136 H 20 132/91 96 12/04/18 17:27 12/04/18 17:27 12/04/18 17:27 12/04/18 17:27 12/04/18 17:27 - Physical Exam Comments: General: Uncomfortable, actively vomiting, malodorous, dirty clothing HEENT: PERRL, EOMI, dry mouth and lips. Voice normal. +tongue fasciculations Cards: Tachycardic, regular Pulm: Comfortable on room air, clear to auscultation bilaterally Abd: Soft, non-distending. Ext: Atraumatic. No LE edema. Moves all extremities Vasc: Extremities WWP. Skin: Normal color, no rashes or lesions Neuro: A&Ox3, CN grossly intact, +tongue fasciculations, +asterixis. Normal speech, motor/sensory grossly intact and symmetric Psych: Mood appropriate to situation Moderate Sedation - Procedure Monitoring Vital Signs: Procedure Monitoring Vital Signs Temperature 98.5 F 12/04/18 17:27 Pulse Rate 136 H 12/04/18 17:27 Respiratory Rate 20 12/04/18 17:27 Blood Pressure 132/91 12/04/18 17:27 O2 Sat by Pulse Oximetry (%) 96 12/04/18 17:27 ED Treatment Course - LABORATORY CBC & Chemistry Diagram: 12/04/18 18:10 12/04/18 18:10 Medical Decision Making - Medical Decision Making 12/04/18 18:14 Nery Levin is a 43yo woman with a history of alcohol abuse who presents reporting vomiting with inability to tolerate PO today after a week-long drinking binge. She states that she has not eaten for one week, but she has been unable to eat or drink anything including water today. She notes previous episodes of tremors when she was not drinking and had at least one admission to rehab in the past. - Multiple episodes of vomiting in the setting of heavy drinking. Could be withdrawal, alcohol intoxication, additional substance abuse, pancreatitis, gastritis, alcoholic ketoacidosis. Could also potentially be hypo/hyperglycemic or have undiagnosed diabetes - CBC, CMP, mag, phos, alcohol level, ammonia, serum preg, UA, UCx, drug screen - Will need banana bag, but due to persistent vomiting will give 1L D5 NS initially - 4mg IV zofran for nausea, vomiting 12/04/18 19:03 - Per discussion with Dr Garcia, pt is actively withdrawing from alcohol. EKG , ativan 2mg ordered by Dr Garcia. - Labs pending Patient signed out to Dr Cheung for remainder of ED management. Radhika Perez PGY1 *DC/Admit/Observation/Transfer Diagnosis at time of Disposition: Alcohol abuse, Nausea & vomiting - Referrals - Patient Instructions - Post Discharge Activity
[2018-12-04] MEDS ORDERED: LORazepam 2 MG/ML SDV VIAL ONE ×2 (18:36→20:20)
--- NOTE | 2018-12-04 18:39 | PDOC ---
Attending Attestation - HPI HPI: This patient is a 43 year old female with history alcohol abuse, who presents today with complaints of nausea, vomiting,abdominal pain and symptoms of alcohol withdrawal. Patient states that she has unable to keep anything down recently. She states that she has had 2 large bottles of henny over the past week but is unsure of how much she drinks regularly. She states that her last drink was yesterday. She states that she hasn't been able to keep anything down due to the nausea and vomit. She also smokes 1/2 ppd of cigarettes. She is not seeking detox at this time. 12/04/18 19:32 - Physicial Exam PE: GENERAL: Awake, alert, and fully oriented, in no acute distress. In florid withdrawal HEAD: No signs of trauma EYES: PERRLA, EOMI, sclera anicteric, conjunctiva clear ENT: Auricles normal inspection, hearing grossly normal, nares patent, oropharynx clear without exudates. Dry cracked tongue, tongue fasciculations. NECK: Normal ROM, supple, no lymphadenopathy, JVD, or masses LUNGS: Breath sounds equal, clear to auscultation bilaterally. No wheezes, and no crackles HEART: Tachycardic, Regular rhythm, normal S1 and S2, no murmurs, rubs or gallops ABDOMEN: Soft, mildy tender diffusely, normoactive bowel sounds. No guarding, no rebound. No masses EXTREMITIES: Normal range of motion, no edema. No clubbing or cyanosis. No cords, erythema, or tenderness NEUROLOGICAL: Tremulous. Cranial nerves II through XII grossly intact. Normal speech. SKIN: Warm, Dry, normal turgor, no rashes or lesions noted. <Marian Wharton - Last Filed: 12/04/18 19:40> - Resident Resident Name: Radhika Perez - ED Attending Attestation I have performed the following: I have examined & evaluated the patient, The case was reviewed & discussed with the resident, I agree w/resident's findings & plan, Exceptions are as noted - Medical Decision Making 12/04/18 18:39 I, Dr. Kay Garcia, DO, attest that this document has been prepared under my direction and personally reviewed by me in its entirety. I further attest, that it accurately reflects all work, treatment, procedures and medical decision -making performed by me. 12/04/18 18:52 a/p: 43yo female with hx of ETOH abuse- last drink last night -n/v today -pt tachy -unable to tolerate po at home -no hx of DT or etoh withdrawal seizures -nbnb vomitus -tongue fasciculations and tremors -will give iv ativan, nausea control, ivf hydration, banana bag -will send labs -will monitor and reassess 12/04/18 20:52 pt still tremulous suspect alcoholic ketoacidosis from binge drinking will continue ivf hydraiton, glucose resident discussed the case with Dr. Dang who accepts pt to service another dose ativan ordered and librium <Kay Garcia - Last Filed: 12/04/18 20:56>
[2018-12-04 18:57] LABS: BASO % 1.1 % (0-2.0); EOS % 0.4 % (0-4.5); HEMATOCRIT 37.7 % (32.4-45.2); HEMOGLOBIN 13.1 GM/dL (10.7-15.3); LYMPH % 10.5 % (8-40); MCH 34.9 pg (25.7-33.7); MCHC 34.8 g/dl (32.0-36.0); MEAN PLT VOLUME 8.9 fl (7.5-11.1); MONO % 10.3 % (3.8-10.2); NEUT % 77.7 % (42.8-82.8); PLATELET COUNT 242 K/MM3 (134-434); RBC 3.77 M/mm3 (3.60-5.2); RDW 14.7 % (11.6-15.6); WHITE BLOOD COUNT 3.7 K/mm3 (4.0-10.0)
--- NOTE | 2018-12-04 19:15 | PDOC ---
*Physical Exam - Vital Signs Last Vital Signs Temp Pulse Resp BP Pulse Ox 98.5 F 136 H 20 132/91 96 12/04/18 17:27 12/04/18 17:27 12/04/18 17:27 12/04/18 17:27 12/04/18 17:27 - Physical Exam Comments: 12/04/18 19:14 Received sign out from Dr. Perez. ED Treatment Course - LABORATORY CBC & Chemistry Diagram: 12/04/18 18:10 12/05/18 05:40 - ADDITIONAL ORDERS Additional order review: 12/04/18 18:10 RBC 3.77 MCV 100.0 H MCHC 34.8 RDW 14.7 MPV 8.9 Neutrophils % 77.7 Lymphocytes % 10.5 D Monocytes % 10.3 H Eosinophils % 0.4 D Basophils % 1.1 - Medications Given in the ED: ED Medications Discontinued Medications Generic Name Dose Route Start Last Admin Trade Name Freq PRN Reason Stop Dose Admin Dextrose/Sodium Chloride 1,000 mls @ 1,000 mls/hr 12/04/18 17:51 12/04/18 18: 00 D5-Ns - IV 12/04/18 18:50 1,000 mls/hr ONCE ONE Administration Lorazepam 2 mg 12/04/18 18:38 12/04/18 18:40 Ativan Injection - IVPUSH 12/04/18 18:39 2 mg ONCE ONE Administration Ondansetron HCl 4 mg 12/04/18 17:51 12/04/18 18:00 Zofran Injection IVPUSH 12/04/18 17:52 4 mg ONCE ONE Administration Medical Decision Making - Medical Decision Making 12/08/18 21:42 Patient was signed out to me. Patient is a 43 yo F with a hx of ETOH abuse that went on a recent drinking binge with last drink night prior to presentation. On my examination of her, she had tongue fasiculations and tremors in her hands. Patient was given ativan, librium, potassium, and magnesium due to low potassium (3.3) and magnesium (1.3). Patient was accepted for admission by Dr. Dang. Dispo: Admit *DC/Admit/Observation/Transfer Diagnosis at time of Disposition: Alcohol abuse Nausea & vomiting Qualifiers: Vomiting type: unspecified Vomiting Intractability: unspecified Qualified Code( s): R11.2 - Nausea with vomiting, unspecified - Referrals - Patient Instructions - Post Discharge Activity
[2018-12-04 19:38] LABS: ALBUMIN 3.9 g/dl (3.4-5.0); ALK PHOS 100 U/L (45-117); ANION GAP 13 MMOL/L (8-16); BILIRUBIN,TOTAL 0.6 mg/dL (0.2-1); BLOOD UREA NITROGEN 8 mg/dL (7-18); CHLORIDE 96 mmol/L (98-107); CO2 30 mmol/L (21-32); CREATININE 0.7 mg/dL (0.55-1.3); GLUCOSE,RANDOM 92 mg/dL (74-106); MAGNESIUM 1.3 mg/dL (1.8-2.4); PHOSPHOROUS 2.2 mg/dL (2.5-4.9); POTASSIUM 3.3 mmol/L (3.5-5.1); SGOT/AST 61 U/L (15-37); SGPT/ALT 45 U/L (13-61); SODIUM 140 mmol/L (136-145); TOT PROT 7.6 g/dl (6.4-8.2)
[2018-12-04] MEDS ORDERED: POTASSIUM CHLORIDE TABS 20 MEQ TABLET.ER (FP) PO ONE ×2 (19:54→20:15)
[2018-12-04] MEDS ORDERED: MAGNESIUM SULF 50% (8.12 MEQ/2 ML-1 GM VIAL) IVPB ONE (19:54)
[2018-12-04] MEDS ORDERED: chlordiazePOXIDE HCL 25 MG CAPSULE PO ONE (20:09)
[2018-12-04] MEDS ORDERED: MAGNESIUM SULF 50% (8.12 MEQ/2 ML-1 GM VIAL) ONE (20:15)
[2018-12-04] MEDS ORDERED: chlordiazePOXIDE HCL 25 MG CAPSULE ONE (20:20)
[2018-12-04 20:47] LABS: ACETONE SERUM TRACE (NEGATIVE)
[2018-12-04 21:00] LABS: URINE APPEARANCE TURBID; URINE BILIRUBIN NEGATIVE (<2.0 mg/dL); URINE COLOR AMBER; URINE GLUCOSE (UA) 1+ (NEGATIVE); URINE KETONE TRACE (NEGATIVE); URINE LEUK ESTERASE 2+ (NEGATIVE); URINE NITRITE NEGATIVE (NEGATIVE); URINE PROTEIN 2+ (NEGATIVE); URINE UROBILINOGEN NEGATIVE mg/dL (0.2-1.0)
[2018-12-04 21:02] LABS: HCG,QUALITATIVE URINE Negative
[2018-12-04 21:10] LABS: EPI CELLS RARE /HPF (FEW); URINE BACTERIA RARE /hpf (NONE SEEN); URINE MUCUS MODERATE
[2018-12-04 22:10] LABS: COCAINE, UR NEGATIVE ng/ml (CUTOFF=300); METHADONE, UR NEGATIVE ng/ml (CUTOFF=300); OPIATES, URI NEGATIVE ng/ml (CUTOFF=300); PHENCYCLIDINE,URINE NEGATIVE ng/ml (CUTOFF=25); URINE AMPHETAMINES NEGATIVE ng/ml (CUTOFF=500); URINE BARBITURATES NEGATIVE ng/ml (CUTOFF=200)
[2018-12-04 22:12] LABS: URINE BENZODIAZEPINES POSITIVE ng/ml (CUTOFF=200)
[2018-12-04] MEDS ORDERED: ONDANSETRON 4 MG/2 ML VIAL IVPB PRN (23:59)
[2018-12-05 03:38] VITALS: BP 119/75; PULSE 97; TEMP 98.6
[2018-12-05] MEDS ORDERED: chlordiazePOXIDE HCL 25 MG CAPSULE PO SCH (05:00)
[2018-12-05 06:41] LABS: ALBUMIN 3.4 g/dl (3.4-5.0); ALK PHOS 76 U/L (45-117); ANION GAP 8 MMOL/L (8-16); BILIRUBIN,TOTAL 1.2 mg/dL (0.2-1); BLOOD UREA NITROGEN 7 mg/dL (7-18); CALCIUM 8.8 mg/dL (8.5-10.1); CHLORIDE 96 mmol/L (98-107); CO2 31 mmol/L (21-32); CREATININE 0.6 mg/dL (0.55-1.3); GLUCOSE,RANDOM 85 mg/dL (74-106); POTASSIUM 3.5 mmol/L (3.5-5.1); SGOT/AST 41 U/L (15-37); SGPT/ALT 34 U/L (13-61); SODIUM 135 mmol/L (136-145); TOT PROT 6.4 g/dl (6.4-8.2)
[2018-12-05] MEDS ORDERED: chlordiazePOXIDE HCL 25 MG CAPSULE ONE (06:55)
--- NOTE | 2018-12-05 12:22 | EKG ---
Test Reason : Blood Pressure : / mmHG Vent. Rate : 111 BPM Atrial Rate : 111 BPM P-R Int : 124 ms QRS Dur : 076 ms QT Int : 344 ms P-R-T Axes : 047 037 053 degrees QTc Int : 467 ms SINUS TACHYCARDIA OTHERWISE NORMAL ECG WHEN COMPARED WITH ECG OF 28-JUL-2018 23:13, NO SIGNIFICANT CHANGE WAS FOUND Confirmed by DUNCAN MURPHY MD ([id number]) on 12/05/2018 12:22:09 PM Referred By: Confirmed By:DUNCAN MURPHY MD
--- NOTE | 2018-12-05 19:25 | DS ---
Physical Examination Vital Signs: Vital Signs Temperature 98.6 F 12/05/18 03:36 Pulse Rate 97 H 12/05/18 03:36 Respiratory Rate 18 12/05/18 03:36 Blood Pressure 119/75 12/05/18 03:36 O2 Sat by Pulse Oximetry (%) 98 12/05/18 03:36 Labs: CBC, BMP 12/04/18 18:10 12/05/18 05:40 Discharge Summary Reason For Visit: ALCOHOL ABUSE NAUSEA AND VOMMITING HYPOMAGNESEMIA - Instructions Disposition: ELOPED - Home Medications Comprehensive Discharge Medication List: Ambulatory Orders NK [No Known Home Medication] 12/04/18 NATALIO
== END 2018-12-05 12:00 | disposition left against medical advice (07) | DRG 770 ==
LOC: JER 17:22 → JERBED 20:41 → OBSVTOIN 23:54
PROVIDERS: ADMIT Internal Medicine; ATTEND Internal Medicine
DX: F10.239 Alcohol dependence with withdrawal, unspecified (principal); E87.2 Acidosis; E83.42 Hypomagnesemia; R00.0 Tachycardia, unspecified; R25.3 Fasciculation; F17.210 Nicotine dependence, cigarettes, uncomplicated; Y90.0 Blood alcohol level of less than 20 mg/100 ml
CPT/HCPCS: 36415; 80053; 80307; 81003; 81015; 82009; 82140; 83735; 84100; 84703; 85025; 87086; 93005; 93010; 99282-25; G0378

== ENCOUNTER 2019-01-04 06:50 | Emergency (ER) | payer OTHER ==
[2019-01-04 06:56] VITALS: BP 112/72; PULSE 106; TEMP 97.6; BMI 24.9
[2019-01-04] MEDS ORDERED: ONDANSETRON 4 MG/2 ML VIAL IVPUSH ONE ×2 (07:26→08:43)
[2019-01-04] MEDS ORDERED: SODIUM CHLORIDE 1,000 ML IV STA (07:26)
[2019-01-04] MEDS ORDERED: FAMOTIDINE 20 MG/50 ML IVPB 20 MG/50 ML MG IVPB ONE ×2 (07:26→07:38)
[2019-01-04] MEDS ORDERED: ONDANSETRON 4 MG/2 ML VIAL ONE ×2 (07:37→08:45)
--- NOTE | 2019-01-04 07:37 | PDOC ---
History of Present Illness - General Chief Complaint: Nausea/Vomiting Stated Complaint: VOMITING Time Seen by Provider: 01/04/19 07:16 History Source: Patient Exam Limitations: No Limitations - History of Present Illness Initial Comments: 01/04/19 07:36 Patient is a 43F with history of alcohol abuse (admitted for rehab in past, no seizures or intubations) here today complaining of vomiting and epigastric pain that started this morning after drinking a large amount of henny. Denies fevers , chills. Denies blood in vomit. Has bag of vomit at bedside. Denies dysuria, LMP one month ago. Denies vaginal bleed, lower abdominal pain, vaginal pain. Denies any other drug use. Endorses tobacco use. Denies prior surgeries. Past History - Past Medical History Allergies/Adverse Reactions: Allergies Allergy/AdvReac Type Severity Reaction Status Date / Time No Known Allergies Allergy Verified 01/04/19 06:54 Home Medications: Ambulatory Orders NK [No Known Home Medication] 12/04/18 Anemia: No Asthma: No Cancer: No Cardiac Disorders: No CVA: No COPD: No CHF: No Dementia: No Diabetes: No GI Disorders: No Disorders: No HTN: No Hypercholesterolemia: No Kidney Stones: No Liver Disease: No Seizures: No Thyroid Disease: No - Surgical History Abdominal Surgery: No Appendectomy: No Cardiac Surgery: No Cholecystectomy: No Lung Surgery: No Neurologic Surgery: No Orthopedic Surgery: No - Reproductive History PID: No - Immunization History Immunization Up to Date: Yes - Suicide/Smoking/Psychosocial Hx Smoking Status: Yes Smoking History: Unknown if ever smoked Have you smoked in the past 12 months: No Number of Cigarettes Smoked Daily: 10 If you are a former smoker, when did you quit?: 0 Information on smoking cessation initiated: No 'Breaking Loose' booklet given: 07/28/18 Hx Alcohol Use: No Drug/Substance Use Hx: No Substance Use Type: Alcohol Hx Substance Use Treatment: Yes ([facility]) Review of Systems - Review of Systems Comments:: 01/04/19 07:51 GENERAL/CONSTITUTIONAL: No fever or chills. No weakness. HEAD, EYES, EARS, NOSE AND THROAT: No change in vision. No ear pain or discharge. No sore throat. CARDIOVASCULAR: No chest pain or shortness of breath RESPIRATORY: No cough, wheezing, or hemoptysis. GASTROINTESTINAL: +nausea, +vomiting, no diarrhea or constipation. GENITOURINARY: No dysuria, frequency, or change in urination. MUSCULOSKELETAL: No joint or muscle swelling or pain. No neck or back pain. SKIN: No rash NEUROLOGIC: No headache, vertigo, loss of consciousness, or change in strength/ sensation. ALLERGIC/IMMUNOLOGIC: No hives or skin allergy. *Physical Exam - Vital Signs Last Vital Signs Temp Pulse Resp BP Pulse Ox 97.6 F 106 H 18 112/72 99 01/04/19 06:54 01/04/19 06:54 01/04/19 06:54 01/04/19 06:54 01/04/19 06:54 - Physical Exam Comments: 01/04/19 07:52 GENERAL: Awake, alert, and fully oriented, dry heaving HEAD: No signs of trauma, normocephalic, atraumatic EYES: PERRLA, EOMI, sclera anicteric, conjunctiva clear ENT: Auricles normal inspection, hearing grossly normal, nares patent, oropharynx clear without exudates. Moist mucosa NECK: Normal ROM, supple, no lymphadenopathy, JVD, or masses LUNGS: No distress, speaks full sentences, clear to auscultation bilaterally HEART: Regular rate and rhythm, normal S1 and S2, no murmurs, rubs or gallops, peripheral pulses normal and equal bilaterally. ABDOMEN: Mildly tender in epigastrium, negative peralta's, no lower abd pain. No guarding, no rebound. No masses EXTREMITIES: Normal inspection, Normal range of motion, no edema. No clubbing or cyanosis. NEUROLOGICAL: Cranial nerves II through XII grossly intact. Normal speech, normal gait, no focal sensorimotor deficits SKIN: Warm, Dry, normal turgor, no rashes or lesions noted. Moderate Sedation - Procedure Monitoring Vital Signs: Procedure Monitoring Vital Signs Temperature 97.6 F 01/04/19 06:54 Pulse Rate 106 H 01/04/19 06:54 Respiratory Rate 18 01/04/19 06:54 Blood Pressure 112/72 01/04/19 06:54 O2 Sat by Pulse Oximetry (%) 99 01/04/19 06:54 ED Treatment Course - LABORATORY CBC & Chemistry Diagram: 01/04/19 08:41 01/04/19 08:41 - RADIOLOGY Radiology Studies Ordered: Category Date Time Status CXRPORT [CHEST X-RAY PORTABLE*] [RAD] Stat Radiology 01/04/19 07:27 Ordered Medical Decision Making - Medical Decision Making 01/04/19 07:52 Patient is 43F with history of alcohol abuse here today with vomiting and intoxication. Vitals notable for tachycardia. DDx includes, but is not limited to: veisalgia, pancreatitis, gastritis. Will evaluate with cbc, cmp, serum preg , lipase, cxr. Will treat with pepcid, fluids, zofran. 01/04/19 08:50 Still dry heaving, given second dose of zofran. 01/04/19 10:32 CBC shows macrocytosis o/w normal, CMP, lipase normal. Reassessed. Tolerating PO. Mild tremor on exam. Will treat with librium. Patient is walking with steady gait. Will discharge with instructions to go to detox. 01/04/19 10:41 Patient states that she does not want to go to detox, advised that she has clear alcohol problem. Discharged to home. Ambulating with steady gait, clinically sober. *DC/Admit/Observation/Transfer Diagnosis at time of Disposition: Vomiting, Alcoholic gastritis - Discharge Dispostion Disposition: HOME Condition at time of disposition: Good Decision to Admit order: No - Referrals - Patient Instructions Printed Discharge Instructions: DI for Alcohol Abuse, DI for Vomiting -- Adult Additional Instructions: Please go to rehab as alcohol is causing your significant health problems. Please return if you have any new, worsening or concerning symptoms, especially repeated vomiting, fevers and increased pain. - Post Discharge Activity
--- NOTE | 2019-01-04 08:21 | PDOC ---
Attending Attestation - Resident Resident Name: ElAlexsander - ED Attending Attestation I have performed the following: I have examined & evaluated the patient, The case was reviewed & discussed with the resident, I agree w/resident's findings & plan, Exceptions are as noted - HPI HPI: 01/04/19 08:51 43yo F hx etoh abuse presents to the ED with multiple episodes of NBNB emesis since this morning after drinking 2 bottles of henny last night. PT reports assoicated sharp epigastric pain. Reports similar sxs in the past after drinking excessively. Denies fevers, chills, dizziness, weakness/numbness, headaches, cp, sob, LE edema. Denies drug use. She is requesting detox. - Physicial Exam PE: 01/04/19 08:53 GENERAL: Awake, alert, and fully oriented, appears uncomfortable, has bag of yellow emesis at bedside HEAD: No signs of trauma EYES: PERRLA, EOMI, sclera anicteric, conjunctiva clear ENT: Oropharynx clear without exudates. Moist mucosa LUNGS: Breath sounds equal, clear to auscultation bilaterally. No wheezes, and no crackles HEART: Regular rate and rhythm, normal S1 and S2, no murmurs, rubs or gallops ABDOMEN: Soft, nontender, normoactive bowel sounds. No guarding, no rebound. No masses EXTREMITIES: Normal range of motion, no edema. No cords, erythema, or tenderness NEUROLOGICAL: Normal speech, cranial nerves intact, equal strength and sensation b/l SKIN: Warm, Dry, normal turgor, no rashes or lesions noted. - Medical Decision Making 01/04/19 08:54 43yo F hx etoh abuse presents to the ED with emesis and epigastric pain after excessive drinking last night. Tachycardic to 106, otherwise vitals wnl. Exam with benign abdomen. Likely etoh gastritis with dehydration. Plan to check labs , provide symptomatic control, reassess. 01/04/19 10:51 Labs wnl Pt feeling much better, tolerating PO BEgan to feel a bit tremulous as she is a daily drinker Feels better after librium Vitals HR 92, BP 124/78 Pt requests DC home, no longer wants detox. Brother at the bedside will take her home. I discussed the physical exam findings, ancillary test results and final diagnoses with the patient. I answered all of the patient's questions. The patient was satisfied with the care received and felt comfortable with the discharge plan and treatment plan. The patient will call their primary care physician within 24 hours to arrange follow-up and will return to the Emergency Department with any new, persistent or worsening symptoms.
[2019-01-04 08:55] LABS: BASO % 0.9 % (0-2.0); HEMATOCRIT 39.7 % (32.4-45.2); MCH 36.2 pg (25.7-33.7); MCHC 35.2 g/dl (32.0-36.0); MEAN CELL VOLUME 102.7 fl (80-96); MEAN PLT VOLUME 9.4 fl (7.5-11.1); MONO % 9.4 % (3.8-10.2); NEUT % 77.7 % (42.8-82.8); PLATELET COUNT 346 K/MM3 (134-434); RBC 3.87 M/mm3 (3.60-5.2); RDW 17.1 % (11.6-15.6); WHITE BLOOD COUNT 4.7 K/mm3 (4.0-10.0)
[2019-01-04 09:18] LABS: ALBUMIN 3.9 g/dl (3.4-5.0); ALK PHOS 94 U/L (45-117); ANION GAP 16 MMOL/L (8-16); BILIRUBIN,TOTAL 0.6 mg/dL (0.2-1); BLOOD UREA NITROGEN 6 mg/dL (7-18); CALCIUM 8.4 mg/dL (8.5-10.1); CHLORIDE 98 mmol/L (98-107); CO2 24 mmol/L (21-32); CREATININE 0.8 mg/dL (0.55-1.3); GLUCOSE,RANDOM 89 mg/dL (74-106); LIPASE 75 U/L (73-393); POTASSIUM 4.2 mmol/L (3.5-5.1); SGOT/AST 55 U/L (15-37); SGPT/ALT 55 U/L (13-61); SODIUM 138 mmol/L (136-145); TOT PROT 7.8 g/dl (6.4-8.2)
[2019-01-04] MEDS ORDERED: chlordiazePOXIDE HCL 25 MG CAPSULE PO ONE (10:32)
[2019-01-04] MEDS ORDERED: chlordiazePOXIDE HCL 25 MG CAPSULE ONE (10:33)
--- NOTE | 2019-01-04 22:00 | EKG ---
Test Reason : Blood Pressure : / mmHG Vent. Rate : 095 BPM Atrial Rate : 095 BPM P-R Int : 132 ms QRS Dur : 068 ms QT Int : 398 ms P-R-T Axes : 064 049 043 degrees QTc Int : 500 ms NORMAL SINUS RHYTHM PROLONGED QT ABNORMAL ECG WHEN COMPARED WITH ECG OF 04-DEC-2018 23:22, NO SIGNIFICANT CHANGE WAS FOUND Confirmed by ROSA HOSKINS MD ([id number]) on 01/04/2019 9:59:46 PM Referred By: Confirmed By:ROSA HOSKINS MD
== END 2019-01-04 10:51 | disposition home or self-care (01) ==
LOC: JER 06:50
PROC: 3E033GC Introduction of Other Therapeutic Substance into Peripheral Vein, Percutaneous Approach (ICD-10-PCS; principal; 2019-01-04)
PROC: 3E033GC Introduction of Other Therapeutic Substance into Peripheral Vein, Percutaneous Approach (ICD-10-PCS; 2019-01-04)
PROC: 3E033GC Introduction of Other Therapeutic Substance into Peripheral Vein, Percutaneous Approach (ICD-10-PCS; 2019-01-04)
PROC: 3E033NZ Introduction of Analgesics, Hypnotics, Sedatives into Peripheral Vein, Percutaneous Approach (ICD-10-PCS; 2019-01-04)
DX: F10.10 Alcohol abuse, uncomplicated (principal); K29.20 Alcoholic gastritis without bleeding; Y90.9 Presence of alcohol in blood, level not specified
CPT/HCPCS: 36415; 71045-TC-FY; 80053; 83690; 84703; 85025; 93005; 93010; 96365; 96375; 96376; 99282-25; J7030

== ENCOUNTER 2020-05-19 12:02 | Emergency (ER) | payer OTHER ==
[2020-05-19 12:25] VITALS: TEMP 98.2; BMI 27.4
[2020-05-19] MEDS ORDERED: ONDANSETRON 4 MG/2 ML VIAL IVPB ONE (12:49)
[2020-05-19] MEDS ORDERED: SODIUM CHLORIDE 1,000 ML IV STA (12:49)
[2020-05-19] MEDS ORDERED: FAMOTIDINE 20 MG/50 ML IVPB 20 MG/50 ML MG IVPB ONE ×2 (12:50→13:27)
--- NOTE | 2020-05-19 13:20 | PDOC ---
History of Present Illness - General Chief Complaint: Nausea/Vomiting Stated Complaint: VOMITING Time Seen by Provider: 05/19/20 12:47 - History of Present Illness Initial Comments: Nery Levin is a 44 y/o female with PMH significant for alcohol use disorder, presenting today with nausea and vomiting. Reports drinking a full bottle of Barcardi last night. Drinks approximately once a week. Reports headache. NBNB vomiting. No diarrhea/dysuria. No chest pain/shortness of break. No back pain. No neck pain. No falls. Past History - Medical History Allergies/Adverse Reactions: Allergies Allergy/AdvReac Type Severity Reaction Status Date / Time No Known Allergies Allergy Verified 01/04/19 06:54 Home Medications: Ambulatory Orders NK [No Known Home Medication] 12/04/18 Anemia: No Asthma: No Cancer: No Cardiac Disorders: No CVA: No COPD: No CHF: No Dementia: No Diabetes: No GI Disorders: No Disorders: No HTN: No Hypercholesterolemia: No Kidney Stones: No Liver Disease: No Seizures: No Thyroid Disease: No - Surgical History Abdominal Surgery: No Appendectomy: No Cardiac Surgery: No Cholecystectomy: No Lung Surgery: No Neurologic Surgery: No Orthopedic Surgery: No - Reproductive History PID: No - Immunization History Immunization Up to Date: Yes - Psycho-Social/Smoking History Smoking Status: Yes Smoking History: Current every day smoker Have you smoked in the past 12 months: Yes Number of Cigarettes Smoked Daily: 10 If you are a former smoker, when did you quit?: 0 Information on smoking cessation initiated: No 'Breaking Loose' booklet given: 07/28/18 - Substance Abuse Hx (Audit-C & DAST Scrn) How often the patient has a drink containing alcohol: 2-4 times / month Number of drinks the patient has on a typical day: 5 or 6 How often the patient has six or more drinks on one occasion: Monthly Score: In Men: 4 or > Positive; In Women: 3 or > Positive: 6 Screen Result (Pos requires Nsg. Audit-10AR): Positive In the last yr the pt used illegal drug/Rx for NonMed reason: No Score: Yes response is considered Positive: 0 Screen Result (Positive result requires Nsg. DAST-10): Negative Review of Systems - Review of Systems Comments:: GENERAL/CONSTITUTIONAL: No fever or chills. No weakness._ HEAD, EYES, EARS, NOSE AND THROAT: No change in vision. No change in hearing. No sore throat._ CARDIOVASCULAR: No chest pain or shortness of breath_ RESPIRATORY: Denies cough, hemoptysis_ GASTROINTESTINAL: Reports abdominal pain, nausea, vomiting. No diarrhea or constipation._ GENITOURINARY: No dysuria, frequency, or change in urination._ MUSCULOSKELETAL: No joint or muscle swelling or pain. No neck or back pain._ SKIN: No rash_ NEUROLOGIC: Reports headache. No vertigo, loss of consciousness, or change in strength/sensation._ ENDOCRINE: No increased thirst. No abnormal weight change_ HEMATOLOGIC/LYMPHATIC: No anemia, easy bleeding, or history of blood clots._ ALLERGIC/IMMUNOLOGIC: No hives or skin allergy._ *Physical Exam - Vital Signs Last Vital Signs Temp Pulse Resp BP Pulse Ox 98.2 F 95 H 18 126/94 99 05/19/20 12:22 05/19/20 12:22 05/19/20 12:22 05/19/20 12:22 05/19/20 12:22 - Physical Exam GENERAL: Awake, alert, and oriented to person/place/time, in no acute distress_ HEAD: No signs of trauma, normocephalic, atraumatic _ EYES: PERRLA, EOMI, sclera anicteric, conjunctiva clear_ ENT: Hearing grossly normal, nares patent, oropharynx clear without exudates. No uvular deviation. Moist mucosa_ NECK: Normal ROM, supple, no lymphadenopathy, JVD, or masses_ LUNGS: No distress, speaks in full sentences, clear to auscultation bilaterally _ HEART: Regular rate and rhythm, normal S1 and S2, no murmurs appreciated, peripheral pulses normal and equal bilaterally._ ABDOMEN: Soft, mild ttp RUQ and LLQ, normoactive bowel sounds. No guarding, no rebound. No masses_ EXTREMITIES: Normal inspection, Normal range of motion, no edema. No clubbing or cyanosis_ NEUROLOGICAL: Cranial nerves II through XII grossly intact. Normal speech, normal gait, no focal sensorimotor deficits _ SKIN: Warm, Dry, normal turgor, no rashes or lesions noted_ ED Treatment Course - LABORATORY CBC & Chemistry Diagram: 05/19/20 13:16 05/19/20 13:16 Medical Decision Making - Medical Decision Making 05/19/20 13:19 44F hx of alcohol use disorder presenting today with nausea, vomiting, and abdominal pain that started this evening. -labs -ekg -urine -fluids -GI cocktail -zofran 05/19/20 14:09 Labs reviewed. Laboratory Last Values WBC 10.8 K/mm3 (4.0-10.0) H 05/19/20 13:16 RBC 4.27 M/mm3 (3.60-5.2) 05/19/20 13:16 Hgb 15.1 GM/dL (10.7-15.3) 05/19/20 13:16 Hct 44.2 % (32.4-45.2) 05/19/20 13:16 MCV 103.6 fl (80-96) H 05/19/20 13:16 MCH 35.4 pg (25.7-33.7) H 05/19/20 13:16 MCHC 34.2 g/dl (32.0-36.0) 05/19/20 13:16 RDW 14.7 % (11.6-15.6) D 05/19/20 13:16 Plt Count 375 K/MM3 (134-434) 05/19/20 13:16 MPV 8.8 fl (7.5-11.1) 05/19/20 13:16 Absolute Neuts (auto) 9.3 K/mm3 (1.5-8.0) H 05/19/20 13:16 Neutrophils % 85.8 % (42.8-82.8) H 05/19/20 13:16 Lymphocytes % 7.2 % (8-40) L D 05/19/20 13:16 Monocytes % 6.1 % (3.8-10.2) 05/19/20 13:16 Eosinophils % 0.2 % (0-4.5) D 05/19/20 13:16 Basophils % 0.7 % (0-2.0) 05/19/20 13:16 Nucleated RBC % 0 % (0-0) 05/19/20 13:16 Sodium 141 mmol/L (136-145) 05/19/20 13:16 Potassium 4.4 mmol/L (3.5-5.1) 05/19/20 13:16 Chloride 99 mmol/L (98-107) 05/19/20 13:16 Carbon Dioxide 26 mmol/L (21-32) 05/19/20 13:16 Anion Gap 16 MMOL/L (8-16) 05/19/20 13:16 BUN 5.5 mg/dL (7-18) L 05/19/20 13:16 Creatinine 0.7 mg/dL (0.55-1.3) 05/19/20 13:16 Est GFR (CKD-EPI)AfAm 121.27 05/19/20 13:16 Est GFR (CKD-EPI)NonAf 104.64 05/19/20 13:16 Random Glucose 99 mg/dL (74-106) 05/19/20 13:16 Calcium 9.7 mg/dL (8.5-10.1) 05/19/20 13:16 Total Bilirubin 1.1 mg/dL (0.2-1) H 05/19/20 13:16 AST 37 U/L (15-37) 05/19/20 13:16 ALT 22 U/L (13-61) 05/19/20 13:16 Alkaline Phosphatase 71 U/L (45-117) 05/19/20 13:16 Creatine Kinase 239 U/L (26-192) H 05/19/20 13:16 Troponin I < 0.02 ng/ml (0.00-0.05) 05/19/20 13:16 Total Protein 8.1 g/dl (6.4-8.2) 05/19/20 13:16 Albumin 4.2 g/dl (3.4-5.0) 05/19/20 13:16 Lipase 68 U/L (73-393) L 05/19/20 13:16 Urine Color Yellow 05/19/20 13:16 Urine Appearance Cloudy 05/19/20 13:16 Urine pH 6.0 (5.0-8.0) D 05/19/20 13:16 Ur Specific [place] 1.014 (1.010-1.035) 05/19/20 13:16 Urine Protein 1+ (NEGATIVE) H 05/19/20 13:16 Urine Glucose (UA) Negative (NEGATIVE) 05/19/20 13:16 Urine Ketones 1+ (NEGATIVE) H 05/19/20 13:16 Urine Blood Negative (NEGATIVE) 05/19/20 13:16 Urine Nitrite Negative (NEGATIVE) 05/19/20 13:16 Urine Bilirubin Negative (NEGATIVE) 05/19/20 13:16 Urine Urobilinogen 1.0 mg/dL (0.2-1.0) 05/19/20 13:16 Ur Leukocyte Esterase Trace (NEGATIVE) 05/19/20 13:16 Urine WBC (Auto) 70 /uL (0-25.8) 05/19/20 13:16 Urine RBC (Auto) 11 /uL (0-23.9) 05/19/20 13:16 Urine Casts (Auto) 7 /uL (0-3.1) 05/19/20 13:16 U Epithel Cells (Auto) >36 /uL (0-25.1) 05/19/20 13:16 U Sm Round Cell (Auto) Non seen 05/19/20 13:16 Urine Bacteria (Auto) 1643 /uL (0-1359) 05/19/20 13:16 Urine HCG, Qual Negative 05/19/20 13:16 05/19/20 15:58 Pt reassessed. Reports abdominal pain is mildly improved. Trial PO apple juice but vomited. 05/19/20 16:34 EKG shows 74 bpm, NSR, nml axis, no ST elevation, QTc 499 (unchanged from prior Dec 2018). Will hold Zofran for now. 05/19/20 18:02 Pt reassessed. Tolerating PO. Abd soft and non tender. Plan to d/c home with PCP f/u. All questions answered. Return precautions given. Pt verbalized understanding and agreement with plan. Discharge - Discharge Information Problems reviewed: Yes Clinical Impression/Diagnosis: Alcohol abuse Nausea & vomiting Qualifiers: Vomiting type: unspecified Vomiting Intractability: non-intractable Qualified Code(s): R11.2 - Nausea with vomiting, unspecified Condition: Stable Disposition: HOME - Admission No - Follow up/Referral - Patient Discharge Instructions Patient Printed Discharge Instructions: DI for Vomiting -- Adult, DI for Alcohol Abuse Additional Instructions: Please make a follow up appointment with a primary care doctor (referral provided here). Please keep yourself as hydrated as possible, and try to decrease or eliminate your alcohol intake. Take Tylenol as needed for pain (follow instructions on the package). If you experience any new, worsening, or concerning symptoms, including worsening nausea/vomiting, inability to keep down fluids, or any other concerns, please return to the emergency department. - Post Discharge Activity
[2020-05-19 13:33] LABS: BASO % 0.7 % (0-2.0); EOS % 0.2 % (0-4.5); HEMATOCRIT 44.2 % (32.4-45.2); HEMOGLOBIN 15.1 GM/dL (10.7-15.3); LYMPH % 7.2 % (8-40); MCH 35.4 pg (25.7-33.7); MCHC 34.2 g/dl (32.0-36.0); MEAN CELL VOLUME 103.6 fl (80-96); MEAN PLT VOLUME 8.8 fl (7.5-11.1); MONO % 6.1 % (3.8-10.2); NEUT % 85.8 % (42.8-82.8); PLATELET COUNT 375 K/MM3 (134-434); RBC 4.27 M/mm3 (3.60-5.2); RDW 14.7 % (11.6-15.6); WHITE BLOOD COUNT 10.8 K/mm3 (4.0-10.0)
[2020-05-19 13:39] LABS: EPI CELLS >36 /uL (0-25.1); HYALINE CASTS 7 /uL (0-3.1); URINE APPEARANCE CLOUDY; URINE BACTERIA 1643 /uL (0-1359); URINE BILIRUBIN NEGATIVE (NEGATIVE); URINE COLOR YELLOW; URINE GLUCOSE (UA) NEGATIVE (NEGATIVE); URINE KETONE 1+ (NEGATIVE); URINE LEUK ESTERASE TRACE (NEGATIVE); URINE NITRITE NEGATIVE (NEGATIVE); URINE PROTEIN 1+ (NEGATIVE); URINE RBC 11 /uL (0-23.9); URINE WBC 70 /uL (0-25.8)
[2020-05-19 13:52] LABS: HCG,QUALITATIVE URINE NEGATIVE
--- NOTE | 2020-05-19 13:56 | PDOC ---
Documentation entered by Madai Nunn SCRIBE, acting as scribe for Bobby Alcantara MD. Bobby Alcantara MD: This documentation has been prepared by the Arline mendez Adrianna, SCRIBE, under my direction and personally reviewed by me in its entirety. I confirm that the documentation accurately reflects all work, treatment, procedures, and medical decision making performed by me. Attending Attestation - Resident Resident Name: Say Banks - ED Attending Attestation I have performed the following: I have examined & evaluated the patient, The case was reviewed & discussed with the resident, I agree w/resident's findings & plan, Exceptions are as noted - HPI HPI: The patient is a 44 year old female, with a significant PMH of EtOH abuse (admitted for rehab in past, no seizures), who presents with nausea and vomiting . Patient admits to drinking a bottle of Bacardi last night, and began feeling nauseous with multiple episodes of vomiting today. She notes she is unable to keep anything down. Denies F/C. Denies diarrhea/constipation. Allergies: NKA, NKDA Surgical History: None reported Social History: EtOH abuse - Physicial Exam PE: GENERAL: The patient is awake, alert, and fully oriented, Nontoxic - in no acute distress. HEAD: Normocephalic, atraumatic. EYES: extraocular movements intact, sclera anicteric, conjunctiva clear. ENT: Normal voice, Moist mucous membranes. NECK: Normal range of motion, supple LUNGS: Breath sounds equal, clear to auscultation bilaterally. No wheezes, no rhonchi, no rales. HEART: Regular rate and rhythm, without murmur, rub or gallop. ABDOMEN: + epigastric TTP, No guarding, no rebound.No CVA tenderness EXTREMITIES: Normal range of motion, no edema. No cyanosis. No erythema, or tenderness. NEUROLOGICAL: No facial asymmetry, Normal speech, PSYCH: Normal mood, normal affect. SKIN: Warm, Dry, normal turgor. - Medical Decision Making 05/19/20 13:58 44 F with N+V+epigastric pain. Suspect alcoholic gastritis. - Labs, lipase - GI cocktail - Reassess 05/19/20 17:30 Labs unremarkable Pt tolerating PO fluids Pt is well appearing, with normal vitals. Clinically stable for DC at this time. I discussed the physical exam findings, ancillary test results and final diagnoses with the patient. I answered all of the patient's questions. The patient was satisfied with the care received and felt comfortable with the discharge plan and treatment plan. The patient agrees to follow up with the primary care physician within 24-72 hours. Please note this patient was evaluated during the COVID-19 crisis with the presidential [place] Act Declaration and the [place] governor executive order number 202. He/she was evaluated and clinical decisions were made relative to healthcare system resources as well as clinical picture during a pandemic crisis situation. Discharge - Discharge Information Problems reviewed: Yes Clinical Impression/Diagnosis: Alcohol abuse Nausea & vomiting Qualifiers: Vomiting type: unspecified Vomiting Intractability: non-intractable Qualified Code(s): R11.2 - Nausea with vomiting, unspecified Condition: Stable Disposition: HOME - Follow up/Referral - Patient Discharge Instructions Patient Printed Discharge Instructions: DI for Alcohol Abuse, DI for Vomiting -- Adult Additional Instructions: Please make a follow up appointment with a primary care doctor (referral provided here). Please keep yourself as hydrated as possible, and try to decrease or eliminate your alcohol intake. Take Tylenol as needed for pain (follow instructions on the package). If you experience any new, worsening, or concerning symptoms, including worsening nausea/vomiting, inability to keep down fluids, or any other concerns, please return to the emergency department. - Post Discharge Activity
[2020-05-19 14:04] LABS: ALBUMIN 4.2 g/dl (3.4-5.0); ALK PHOS 71 U/L (45-117); ANION GAP 16 MMOL/L (8-16); BILIRUBIN,TOTAL 1.1 mg/dL (0.2-1); BLOOD UREA NITROGEN 5.5 mg/dL (7-18); CALCIUM 9.7 mg/dL (8.5-10.1); CHLORIDE 99 mmol/L (98-107); CO2 26 mmol/L (21-32); CREATININE 0.7 mg/dL (0.55-1.3); GLUCOSE,RANDOM 99 mg/dL (74-106); LIPASE 68 U/L (73-393); POTASSIUM 4.4 mmol/L (3.5-5.1); SGOT/AST 37 U/L (15-37); SGPT/ALT 22 U/L (13-61); SODIUM 141 mmol/L (136-145); TOT PROT 8.1 g/dl (6.4-8.2)
[2020-05-19] MEDS ORDERED: ACETAMINOPHEN 325 MG TABLET (FP) PO ONE (14:08)
[2020-05-19] MEDS ORDERED: ACETAMINOPHEN 1000 MG/100 ML VIAL (NON FORMULARY) IVPB ONE (14:10)
[2020-05-19] MEDS ORDERED: ACETAMINOPHEN INJECTION 100 ML IVPB ONE (14:30)
[2020-05-19] MEDS ORDERED: ONDANSETRON 4 MG/2 ML VIAL IVPUSH ONE (15:58)
[2020-05-19 18:17] VITALS: BP 135/85; PULSE 82
--- NOTE | 2020-05-20 11:51 | EKG ---
Test Reason : Blood Pressure : / mmHG Vent. Rate : 074 BPM Atrial Rate : 074 BPM P-R Int : 118 ms QRS Dur : 080 ms QT Int : 450 ms P-R-T Axes : 031 038 036 degrees QTc Int : 499 ms NORMAL SINUS RHYTHM PROLONGED QT ABNORMAL ECG WHEN COMPARED WITH ECG OF 04-JAN-2019 09:51, NO SIGNIFICANT CHANGE WAS FOUND Confirmed by DUNCAN MURPHY MD ([id number]) on 05/20/2020 11:51:00 AM Referred By: Confirmed By:DUNCAN MURPHY MD
== END 2020-05-19 18:17 | disposition home or self-care (01) ==
LOC: JER 12:02
PROC: 3E033GC Introduction of Other Therapeutic Substance into Peripheral Vein, Percutaneous Approach (ICD-10-PCS; principal; 2020-05-19)
DX: R11.2 Nausea with vomiting, unspecified (principal); F10.10 Alcohol abuse, uncomplicated
CPT/HCPCS: 36415; 80053; 81003; 82550; 82553; 83690; 84484; 84703; 85025; 93005; 93010; 99284-25; J0131

== ENCOUNTER 2020-06-21 02:46 | Emergency (ER) | payer OTHER ==
[2020-06-21] MEDS ORDERED: FAMOTIDINE 20 MG/50 ML IVPB 20 MG/50 ML MG IVPB ONE ×2 (03:10→03:35)
[2020-06-21] MEDS ORDERED: SODIUM CHLORIDE 0.9% 500 ML INFUS.BAG IV ONE (03:11)
[2020-06-21] MEDS ORDERED: ONDANSETRON 4 MG/2 ML VIAL IVPUSH ONE (03:11)
--- NOTE | 2020-06-21 03:18 | PDOC ---
History of Present Illness - General Stated Complaint: VOMITING Time Seen by Provider: 06/21/20 03:13 Past History - Medical History Allergies/Adverse Reactions: Allergies Allergy/AdvReac Type Severity Reaction Status Date / Time No Known Allergies Allergy Verified 01/04/19 06:54 Home Medications: Ambulatory Orders NK [No Known Home Medication] 12/04/18 Anemia: No Asthma: No Cancer: No Cardiac Disorders: No CVA: No COPD: No CHF: No Dementia: No Diabetes: No GI Disorders: No Disorders: No HTN: No Hypercholesterolemia: No Kidney Stones: No Liver Disease: No Seizures: No Thyroid Disease: No - Surgical History Abdominal Surgery: No Appendectomy: No Cardiac Surgery: No Cholecystectomy: No Lung Surgery: No Neurologic Surgery: No Orthopedic Surgery: No - Reproductive History PID: No - Immunization History Immunization Up to Date: Yes - Psycho-Social/Smoking History Smoking Status: Yes Smoking History: Current every day smoker Have you smoked in the past 12 months: Yes Number of Cigarettes Smoked Daily: 10 If you are a former smoker, when did you quit?: 0 'Breaking Loose' booklet given: 07/28/18 ED Treatment Course - LABORATORY CBC & Chemistry Diagram: 06/21/20 03:15 06/21/20 03:15 - RADIOLOGY Radiology Studies Ordered: Category Date Time Status CHEST X-RAY PORTABLE* [RAD] Stat Radiology 06/21/20 03:12 Ordered Medical Decision Making - Medical Decision Making 06/21/20 03:16 HPI: 44yo F hx smoking and EtOH abuse (admitted for rehab in past, no seizures) BIBA c/o epigastric pain, nausea, and vomiting x1 day. Drank bottle of alcohol last night, woke up this AM and been vomiting multiple times for past approx 18 hours. Denies any drinking x24hrs. Denies F/C, D/C, dysuria, drug use. ROS: Constitutional: Positive for trembling/shaking. Negative for chills, fever, fatigue, diaphoresis. HENT: Negative for sore throat, rhinorrhea, congestion. Eyes: Negative for visual disturbance. Respiratory: Negative for shortness of breath, cough, and wheezing. Cardiovascular: Negative for chest pain, palpitations, and leg swelling. Gastrointestinal: Positive for epigastric pain, nausea, vomiting. Negative for blood in stool, constipation, diarrhea. Genitourinary: Negative for dysuria, flank pain, and hematuria. Musculoskeletal: Negative for myalgias, back pain, and neck pain. Skin: Negative for rash. Neurological: Negative for light-headedness, dizziness, vertigo, syncope, weakness, numbness and headaches. Psychiatric/Behavioral: Positive for alcohol abuse. Negative for behavioral problems and confusion. PE: Gen: Alert, NAD, uncomfortable-appearing, shaking, actively vomiting HEENT: PERRL, EOMI, dry MM, NCAT. No conjunctival pallor. Sclera are non- icteric. CV: Regular rate and rhythm. No murmurs, rubs, or gallops. PULM: No resp distress. CTAB, no wheezes, rales, or rhonchi. ABD: soft, +epigastric TTP, ND, no rebound tenderness or guarding, no CVA tenderness, actively vomiting. BACK: No TTP of c/t/l-spine. No step-offs or deformities. MSK: No bony deformities. 2+ pulses in all extremities. NEURO: AAOx3. PERRL. No gross CN deficits. Strength and sensation grossly intact throughout. EXTREMITIES: No cyanosis. No clubbing. No edema. No calf tenderness. PSYCH: Normal mood and thought pattern. SKIN: Warm and dry. Normal capillary refill. No rashes. No jaundice. MDM: 44yo F hx smoking and EtOH abuse (admitted for rehab in past, no seizures) BIBA c/o epigastric pain, nausea, and vomiting x1 day; last alcohol use approx 24hrs ago. Tachycardic, hypertensive, otherwise hemodynamically stable, afebrile. Ddx: likely withdrawal. Also consider intox, pancreatitis, gastritis, PUD, esophageal perforation, arrhythmia, metabolic derangement, anemia -Ativan -IVF -GI cocktail (hold zofran due to hx prolonged QTc) -EKG: NSR, 98bpm, VT interval 140ms, QTc 480, no e/o acute ischemia -CBC,CMP,Lipase,Preg -CXR -Dispo 06/21/20 04:51 Tolerating PO Labs reviewed CXR reviewed: no acute pathology Pt feels better, no TTP, no shaking, no vomiting since ativan given. Refusing detox due to child at home. Safe for d/c with detox info and PCP f/u. Discharge - Discharge Information Problems reviewed: Yes Clinical Impression/Diagnosis: Alcohol dependence with uncomplicated withdrawal, Vomiting Condition: Improved Disposition: HOME - Admission No - Follow up/Referral Referrals: Nida Andrew NP [Primary Care Provider] - - Patient Discharge Instructions Patient Printed Discharge Instructions: DI for Alcohol Abuse, DI for Drug or Alcohol Withdrawal Additional Instructions: You have been seen for your alcohol withdrawal. You feel better after Ativan and fluids. We have offered you Detox services but you have refused. If you change your mind, you can call or go here to get help with detox: [facility] Address: [address] [place] [address], [facility] Intake Line: Website: [email or web address] Follow-up with your primary care doctor within 1 week. Return to the ED immediately for any new or concerning symptoms including chest pain, difficulty breathing, vomiting blood, or passing out. - Post Discharge Activity
[2020-06-21 03:31] VITALS: BMI 31.2
[2020-06-21] MEDS ORDERED: LORazepam 2 MG/ML SDV VIAL ONE (03:34)
[2020-06-21 03:37] LABS: BASO % 0.8 % (0-2.0); HEMATOCRIT 42.8 % (32.4-45.2); HEMOGLOBIN 14.6 GM/dL (10.7-15.3); LYMPH % 4.7 % (8-40); MCH 35.9 pg (25.7-33.7); MEAN CELL VOLUME 105.6 fl (80-96); MEAN PLT VOLUME 8.8 fl (7.5-11.1); MONO % 5.3 % (3.8-10.2); NEUT % 89.2 % (42.8-82.8); PLATELET COUNT 263 K/MM3 (134-434); RBC 4.06 M/mm3 (3.60-5.2); RDW 14.9 % (11.6-15.6); WHITE BLOOD COUNT 8.6 K/mm3 (4.0-10.0)
[2020-06-21] MEDS ORDERED: FOLIC ACID INJECTION - 1 MG, THIAMINE HCL 100 MG, MULTIVIT INJECTION ADULT 10 ML in SOD... IVPB ONE (03:38)
--- NOTE | 2020-06-21 03:39 | PDOC ---
Attending Attestation - Resident Resident Name: Brittny Vazquez - ED Attending Attestation I have performed the following: I have examined & evaluated the patient, The case was reviewed & discussed with the resident, I agree w/resident's findings & plan - HPI HPI: 06/21/20 04:15 Pt is an alcoholic who spent the past 24 hrs vomiting. She feels dehydrated and comes for eval. and for some relief. She is refusing to go to detox. She lives with her 14 yo son. - Physicial Exam PE: 06/21/20 04:16 Heart RRR Lungs CTAB Abd soft NT ND + BS no flank pain. neuro normal exam - Medical Decision Making 06/21/20 04:18 Home after hydration. Labs are normal at this time T bili is slightly elevated. LFTs and lipase normal 06/21/20 06:33 Banana bag is in and pt will be hydrated Discharge - Discharge Information Problems reviewed: Yes Clinical Impression/Diagnosis: Alcohol dependence with uncomplicated withdrawal, Vomiting Condition: Improved Disposition: HOME - Follow up/Referral Referrals: Nida Andrew NP [Primary Care Provider] - - Patient Discharge Instructions Patient Printed Discharge Instructions: DI for Alcohol Abuse, DI for Drug or Al cohol Withdrawal Additional Instructions: You have been seen for your alcohol withdrawal. You feel better after Ativan and fluids. We have offered you Detox services but you have refused. If you change your mind, you can call or go here to get help with detox: [facility] Address: [address] [place] [address], [facility] Intake Line: Website: [email or web address] Follow-up with your primary care doctor within 1 week. Return to the ED immediately for any new or concerning symptoms including chest pain, difficulty breathing, vomiting blood, or passing out. - Post Discharge Activity
[2020-06-21 03:58] LABS: BILIRUBIN,TOTAL 1.2 mg/dL (0.2-1); BLOOD UREA NITROGEN 4.4 mg/dL (7-18); CALCIUM 9.9 mg/dL (8.5-10.1); CREATININE 0.6 mg/dL (0.55-1.3); POTASSIUM 4.4 mmol/L (3.5-5.1)
[2020-06-21 04:20] LABS: MACROCYTOSIS 2+; PLATELET ESTIMATE ADEQUATE
[2020-06-21] MEDS ORDERED: LIDOCAINE VISCOUS 2% ORAL/TOP 20 ML UNIT-DOSE CUP MM ONE (04:22)
[2020-06-21] MEDS ORDERED: MAG HYDROX/AL HYDROX/SIMETH 30 ML UNIT-DOSE CUP PO ONE (04:22)
[2020-06-21] MEDS ORDERED: MAG HYDROX/AL HYDROX/SIMETH 30 ML UNIT-DOSE CUP ONE (05:09)
[2020-06-21] MEDS ORDERED: LIDOCAINE VISCOUS 2% ORAL/TOP 20 ML UNIT-DOSE CUP ONE (05:09)
[2020-06-21 07:59] VITALS: BP 146/95; PULSE 98; TEMP 99.8
--- NOTE | 2020-06-21 09:11 | EKG ---
Test Reason : Blood Pressure : / mmHG Vent. Rate : 098 BPM Atrial Rate : 098 BPM P-R Int : 140 ms QRS Dur : 064 ms QT Int : 376 ms P-R-T Axes : 075 050 056 degrees QTc Int : 480 ms POOR DATA QUALITY, INTERPRETATION MAY BE ADVERSELY AFFECTED NORMAL SINUS RHYTHM POSSIBLE LEFT ATRIAL ENLARGEMENT PROLONGED QT ABNORMAL ECG WHEN COMPARED WITH ECG OF 19-MAY-2020 16:22, NO SIGNIFICANT CHANGE WAS FOUND Confirmed by Juan Jose Goldstein ([id number]) on 06/21/2020 9:11:12 AM Referred By: Confirmed By:Juan Jose Goldstein
== END 2020-06-21 08:03 | disposition home or self-care (01) ==
LOC: JER 02:46
PROC: 3E033NZ Introduction of Analgesics, Hypnotics, Sedatives into Peripheral Vein, Percutaneous Approach (ICD-10-PCS; principal; 2020-06-21)
PROC: 3E033GC Introduction of Other Therapeutic Substance into Peripheral Vein, Percutaneous Approach (ICD-10-PCS; 2020-06-21)
DX: F10.239 Alcohol dependence with withdrawal, unspecified (principal); R11.10 Vomiting, unspecified
CPT/HCPCS: 36415; 71045-TC-FY; 80053; 80307; 83690; 84703; 85025; 93005; 93010; 99285-25

== ENCOUNTER 2023-06-14 13:51 | Emergency (ER) | payer OTHER ==
[2023-06-14 14:30] VITALS: BP 121/81; PULSE 98; RESP 17; BMI 32.2
[2023-06-14] MEDS ORDERED: chlordiazePOXIDE HCL 25 MG CAPSULE PO ONE (15:21)
[2023-06-14] MEDS ORDERED: FAMOTIDINE 20 MG TABLET PO ONE (15:22)
[2023-06-14] MEDS ORDERED: MAG HYDROX/AL HYDROX/SIMETH 30 ML UNIT-DOSE CUP PO ONE (15:23)
[2023-06-14] MEDS ORDERED: ONDANSETRON 4 MG TABLET PO ONE (15:23)
[2023-06-14] MEDS ORDERED: ONDANSETRON *ODT* 4 MG TABLET ONE (15:28)
[2023-06-14] MEDS ORDERED: FAMOTIDINE 20 MG TABLET ONE (15:28)
[2023-06-14] MEDS ORDERED: chlordiazePOXIDE HCL 25 MG CAPSULE ONE (15:28)
[2023-06-14] MEDS ORDERED: SODIUM CHLORIDE 0.9% 500 ML INFUS.BAG IV ONE (15:29)
[2023-06-14] MEDS ORDERED: MAG HYDROX/AL HYDROX/SIMETH 30 ML UNIT-DOSE CUP ONE (15:34)
[2023-06-14 16:18] LABS: HEMATOCRIT 47.7 % (32.4-45.2); HEMOGLOBIN 16.2 GM/dL (10.7-15.3); MCH 32.9 pg (25.7-33.7); MCHC 34.1 g/dl (32.0-36.0); MEAN CELL VOLUME 96.5 fl (80-96); MEAN PLT VOLUME 9.1 fl (7.5-11.1); PLATELET COUNT 287 10^3/uL (134-434); RBC 4.94 M/mm3 (3.60-5.2); RDW 13.6 % (11.6-15.6); WHITE BLOOD COUNT 10.5 K/mm3 (4.0-10.0)
[2023-06-14 16:36] LABS: POTASSIUM 3.7 mmol/L (3.5-5.1)
[2023-06-14 16:38] LABS: ALBUMIN 4.6 g/dl (3.4-5.0); BLOOD UREA NITROGEN 15.8 mg/dL (7-18); CALCIUM 11.7 mg/dL (8.5-10.1)
[2023-06-14 16:41] LABS: CREATININE 1.1 mg/dL (0.55-1.3)
[2023-06-14 16:43] LABS: BILIRUBIN,TOTAL 0.9 mg/dL (0.2-1)
[2023-06-14 18:45] LABS: POTASSIUM 3.1 mmol/L (3.5-5.1)
[2023-06-14 18:47] LABS: ALBUMIN 3.7 g/dl (3.4-5.0)
[2023-06-14 18:48] LABS: BLOOD UREA NITROGEN 14.6 mg/dL (7-18)
[2023-06-14 18:50] LABS: CREATININE 1.1 mg/dL (0.55-1.3)
[2023-06-14 18:52] LABS: BILIRUBIN,TOTAL 0.6 mg/dL (0.2-1); TOT PROT 7.4 g/dl (6.4-8.2)
[2023-06-14] MEDS ORDERED: POTASSIUM CHLORIDE ORAL LIQUID 20 MEQ/15 ML PO ONE (19:01)
[2023-06-14 19:04] LABS: VENOUS BASE EXCESS 10.8 mmol/L (-2-2); VENOUS O2 SATURATION 96.7 % (70-80); VENOUS PCO2 36.9 mmHg (38-52); VENOUS PH 7.574 (7.310-7.410)
[2023-06-14] MEDS ORDERED: ACETAMINOPHEN 325 MG TABLET (FP) ONE (19:04)
[2023-06-14] MEDS ORDERED: POTASSIUM CHLORIDE ORAL LIQUID 20 MEQ/15 ML ONE (19:04)
== END 2023-06-14 20:24 | disposition home or self-care (01) ==
LOC: JER 13:51
DX: R11.2 Nausea with vomiting, unspecified (principal); R10.13 Epigastric pain; F10.10 Alcohol abuse, uncomplicated; R19.7 Diarrhea, unspecified; R19.5 Other fecal abnormalities
CPT/HCPCS: 36415; 80053; 82272; 82803; 83690; 84484; 85027; 93005; 93010; 99284-25